=== PATIENT | female | born 1950 | race Caucasian/White ===

== ENCOUNTER → 2018-01-25 10:08 | Outpatient (CLI) | payer MEDICARE, OTHER, SELFPAY ==
[2018-01-25 11:46] LABS: Free T4, Direct Thyroxine 1.15 ng/dL (0.78-2.19)
[2018-01-25 11:51] LABS: Vitamin D 25 Hydroxy (D3) 74.1 ng/mL (30.0-100.0)
[2018-01-25 12:00] LABS: Thyroid Stimulating Hormone 3.73 uIU/mL (0.47-4.68)
== END ==
PROVIDERS: PCP Physician Assistant; Visit Provider Physician Assistant
DX: L65.9 Nonscarring hair loss, unspecified (principal); R94.6 Abnormal results of thyroid function studies; E55.9 Vitamin D deficiency, unspecified; M81.0 Age-related osteoporosis without current pathological fracture
CPT/HCPCS: 36415; 82306; 84439; 84443

== ENCOUNTER → 2021-08-10 07:58 | Outpatient (CLI) | payer MEDICARE, OTHER, SELFPAY ==
--- NOTE | 2021-08-10 07:59 | DI.MG.S_ITS ---
BILATERAL DIGITAL SCREENING MAMMOGRAM 3D/2D WITH CAD: 08/10/2021 CLINICAL: Routine screening. Comparison is made to exams dated: 01/31/2017 mammogram, 11/18/2015 mammogram, and 10/07/2014 mammogram - outside location. There are scattered fibroglandular elements in both breasts. Current study was also evaluated with a Computer Aided Detection (CAD) system. No significant masses, calcifications, or other findings are seen in either breast. There has been no significant interval change. IMPRESSION: NEGATIVE There is no mammographic evidence of malignancy. A 1 year screening mammogram is recommended. This exam was interpreted at Station ID: [id number]. NOTE: For mammograms, a report in lay terms will be sent to the patient. Approximately 15% of breast malignancies will not be visualized mammographically. In the management of a palpable breast mass, a negative mammogram must not discourage biopsy of a clinically suspicious lesion. Electronically Signed By: Sonu Christian acr/elis:08/10/2021 10:19:32 letter sent: Normal Exam ACR BI-RADS Category 1: Negative [id number]
== END ==
PROVIDERS: PCP Internal Medicine; Referring Provider Internal Medicine; Visit Provider Internal Medicine
DX: Z12.31 Encounter for screening mammogram for malignant neoplasm of breast (principal)
CPT/HCPCS: 77063; 77067

== ENCOUNTER → 2021-09-25 09:25 | Outpatient (CLI) | payer MEDICARE, OTHER, SELFPAY ==
[2021-09-25 10:49] LABS: Alanine Aminotransferase 32 IU/L (<35); Albumin 4.2 g/dL (3.5-5.0); Albumin Globulin Ratio 1.4 (1.0-2.8); Alkaline Phosphatase 83 U/L (38-126); Aspartate Aminotransferase 38 IU/L (14-36); BUN Creatinine Ratio 22.5 (6-22); Bilirubin Total 0.5 mg/dL (0.2-1.3); Blood Urea Nitrogen 16 mg/dL (7-17); Calcium 9.5 mg/dL (8.4-10.2); Carbon Dioxide 30 mmol/L (22-32); Chloride 109 mmol/L (98-107); Cholesterol 210 mg/dL (140-199); Estimated Glomerular Filt Rate > 60.0 mL/min (>60); Glucose 78 mg/dL (80-110); HDL Cholesterol 60 mg/dL (40-60); HEMOLYSIS < 15 (0-50); LDL Cholesterol Calculated 117 mg/dL (<100); Potassium 4.1 mmol/L (3.4-5.1); Sodium 142 mmol/L (137-145); Total Protein 7.2 g/dL (6.3-8.2); Triglycerides 164 mg/dL (35-150)
[2021-09-25 11:08] LABS: Vitamin D 25 Hydroxy (D3) 41.1 ng/mL (30.0-100.0)
[2021-09-25 11:23] LABS: TSH w/ Reflex to FT4 4.25 uIU/mL (0.47-4.68)
== END ==
PROVIDERS: PCP Internal Medicine; Referring Provider Internal Medicine; Visit Provider Internal Medicine
DX: Z13.6 Encounter for screening for cardiovascular disorders (principal); E55.9 Vitamin D deficiency, unspecified; M81.0 Age-related osteoporosis without current pathological fracture; Z13.1 Encounter for screening for diabetes mellitus; Z13.220 Encounter for screening for lipoid disorders; M85.89 Other specified disorders of bone density and structure, multiple sites
CPT/HCPCS: 36415; 80053; 80061; 82306; 84443

== ENCOUNTER 2022-03-05 01:28 | Emergency (ER) | payer MEDICARE, OTHER, SELFPAY ==
[2022-03-05 01:35] VITALS: BP 149/72; PULSE 72; RESP 18; TEMP 36.2; O2SAT 98
[2022-03-05 01:49] VITALS: BP 144/72; PULSE 76; RESP 18
--- NOTE | 2022-03-05 01:50 | DI.RAD.S_ITS ---
PROCEDURE: XR WRIST LT MIN 3V INDICATIONS: hurt after gardening,no known trauma TECHNIQUE: 4 views of the wrist were acquired. COMPARISON: None. FINDINGS: Bones: No fractures or dislocations. No suspicious bony lesions. First CMC joint osteoarthritis. Scaphoid view: Scaphoid is intact. Soft tissues: No suspicious soft tissue calcifications. IMPRESSION: No fracture. No osseous lesion. If symptoms and/or clinical suspicion for pathology persists, further assessment with repeat radiographs (7-10 days) or advanced imaging (e.g. CT, MRI or bone scan) should be considered. Dictated by: Karolina Romeo MD, PhD on 03/05/2022 at 7:29 Approved by: Karolina Romeo MD, PhD on 03/05/2022 at 7:38
--- NOTE | 2022-03-05 04:27 | ED.EXTPRO ---
HPI - Extremity Problem General Chief complaint: Extremity Problem,Nontraumatic Stated complaint: left arm/wrist pain x1 day/low blood pressure Time Seen by Provider: 03/05/22 03:23 Source: patient Mode of arrival: Wheelchair History of Present Illness HPI Narrative: [age] with minimal medical issues woke up this morning to void was slightly dizzy took her blood pressure and noticed that it was significantly low. That persisted and she also noted that her left wrist was bothering her so she decided to come to the emergency department. She was in complaining of chest pain, orthopnea, palpitations, headache, visual changes, any acute neurologic findings, abdominal pain, dysuria, diarrhea or constipation. She notes that she spent quite a bit of time in the garden over the last 1-2 days after getting home for in a 2 week vacation. Her left wrist has become increasingly sore and is slightly ecchymotic on the volar surface. She does not describe any specific damage but was heavily using her wrist with weeding. She also notes some minor tenderness into the forearm and up toward the lateral epicondyle her. She has had no recent fevers, there is no joint pain, redness or swelling. Related Data Home Medications Medication Instructions Recorded Confirmed multivitamin 1 tab PO DAILY 03/08/18 10/12/21 Citracal - Slow Release 2 tab PO DAILY 09/11/21 10/12/21 ibuprofen 200 mg tablet (Advil) 400 mg PO DAILY PRN 09/11/21 10/12/21 naproxen sodium 220 mg tablet 440 mg PO DAILY PRN 09/11/21 10/12/21 (Aleve) Previous Rx's Medication Instructions Recorded fluocinonide 0.05 % topical cream 1 applic topical BID-QID PRN rash 10/12/21 #30 grams Allergies Allergy/AdvReac Type Severity Reaction Status Date / Time No Known Drug Allergies Allergy Verified 10/12/21 09:21 Review of Systems Review of Systems Narrative: Remainder of complete review of systems is otherwise unremarkable except for that included in the HPI. Patient History Medical History (Updated 03/05/22 @ 04:52 by Rita Jimenez MD) History of multiple concussions Osteoarthritis, multiple sites Osteopenia after menopause Partial tear of rotator cuff Vitamin D deficiency Surgical History (Updated 01/24/18 @ 15:02 by Nelsy Oviedo PA-C) H/O foot surgery Family History (Updated 01/24/18 @ 15:06 by Nelsy Oviedo PA-C) Father Congestive heart failure Hypertension Osteoporosis Mother Rheumatoid arthritis Brother No problems noted. Brother No problems noted. Social History Smoking Status: Never smoker second hand exposure: No alcohol intake: current (socially.) substance use type: does not use Smoking Status: Never smoker alcohol intake frequency: a few times a week Substance Use Type: does not use Exam Initial Vital Signs Initial Vital Signs: Vital Signs Temperature 97.2 F L 03/05/22 01:35 Pulse Rate 72 03/05/22 01:35 Respiratory Rate 18 03/05/22 01:35 Blood Pressure 149/72 H 03/05/22 01:35 Pulse Oximetry 98 03/05/22 01:35 Oxygen Delivery Method 03/05/22 01:35 General: Healthy appearing, in no acute distress. Able to give a complete and coherent history. Well-nourished well-developed HEENT: Moist mucous membranes, normal sclera with reactive pupils, Neck: , supple Respiratory: Lungs are clear to auscultation, no wheezing no rales no rhonchi. Full and symmetrical air movement Cardiac: Regular rate and rhythm no murmurs no bruits Abdomen: Soft, nontender, good bowel tones, no flank pain Skin: Warm and dry, no rashes Neurologic: Grossly neurologically intact with no obvious asymmetries or abnormalities Extremities: Minor tenderness over the left lateral epicondyle and extensor surface of the forearm. Also significant tenderness over the flexor surface of the wrist looks like she has a small bruise over that surface. There are no bony points of tenderness and specifically no snuffbox tenderness. The hand and fingers are neurovascularly intact and remainder of the upper extremities are well perfused Psych: Cooperative, appropriate insight and affect Procedures Orthopedic Splinting/Casting Left wrist splint: Time of procedure: 04:47 Side: left Upper Extremity Injury Location: wrist Upper Extremity Immobilizer: thumb spica Post splinting neuro exam: intact Post splinting vascular exam: intact Placed by: Provider Course Orders Ordered: ED Orders 03/05/22 01:50 XR wrist LT min 3V Stat Vital Signs Vital signs: Vital Signs - 8 hr 03/05/22 01:35 03/05/22 01:49 Temperature 97.2 F L Pulse Rate 72 76 Respiratory Rate 18 18 Blood Pressure 149/72 H 144/72 H Pulse Oximetry 98 Oxygen Delivery Method Room Air MDM - Extremity (Nontraumatic) Imaging Data Wrist x-ray: Radiologist's Impression: 1st carpometacarpal osteoarthritis. Slight lucency in the ulnar aspect base of the 1st metatarsal on oblique view likely artifact. (Clinical correlation does not support any fracture at this site) Cedrick Myers MD [facility] Narrative Medical decision making narrative: Otherwise healthy woman who was concerned with hypotension at the middle of the night. I suspect that this was a circadian rhythms rather than significant pathology. When she was up and around and specifically when she got to the emergency department her blood pressures have been perfectly adequate. Her left wrist is bothering her likely overuse injury from all the guarding in the last 1-2 days. She probably also has a small superficial blood vessel rupture on the volar surface of the wrist which is contributing to the pain. She is placed in a splint and the immobilization and stabilization do help with some of the pain. Also discussed decreasing activity to avoid developing acute epicondylitis. There is no evidence infection, gout or reason for additional workup for further evaluation at this time. Questions are answered and she is safe for home discharge Discharge Plan Departure Patient Disposition: Home Clinical Impression: Hypotension Qualifiers: Hypotension type: unspecified hypotension type Qualified Code(s): I95.9 - Hypotension, unspecified Left wrist sprain Qualifiers: Encounter type: initial encounter Qualified Code(s): S63.502A - Unspecified sprain of left wrist, initial encounter Instructions: DI for Wrist Sprain Activity Restrictions/Additional Instructions: Thank you for coming in today I suspect that is the low blood pressure that you noticed in the middle of the night was related to normal circadian rhythms. Most people have fairly low blood pressures between 2 and 5:00 a.m.. The fact that it has returned to normal is quite reassuring Regarding your left wrist pain. I suspect that you have strained it and probably broken a small blood vessel on the inner surface of the wrist that is causing the majority of the pain. With pain radiating up the forearm you likely have simply overuse those muscles and are at risk for developing lateral epicondylitis or tennis elbow. Please use the wrist splint for the next couple of days as long as it is helpful. Ice or heat whichever seems to treat the pain most effectively is going to be appropriate. Using 400 mg of ibuprofen (2 srnr-peh-kpapnyn pills) and 1 Tylenol every 6 hours can be very helpful in controlling pain. If you find that you are getting worse or develop any new symptoms, please feel free to return to the emergency department for further evaluation. Prescriptions: No Action multivitamin tablet 1 tab PO DAILY fluocinonide 0.05 % cream 1 applic topical BID-QID PRN (Reason: rash) Qty: 30 1RF Citracal - Slow Release 2 tab PO DAILY naproxen sodium [Aleve] 220 mg tablet 440 mg PO DAILY PRN Rx Instructions: Additional tab if needed. Uses either Advil or Aleve ibuprofen [Advil] 200 mg tablet 400 mg PO DAILY PRN Rx Instructions: Takes an additional tab if needed - Uses either Advil or Aleve Referrals: Hany Bhatia MD [Primary Care Provider] -
[2022-03-05 05:05] VITALS: BP 138/73; PULSE 76; RESP 18; O2SAT 98
== END 2022-03-05 05:06 | disposition home or self-care (01) ==
PROVIDERS: Emergency Provider Emergency Medicine; PCP Internal Medicine
DX: I95.9 Hypotension, unspecified (principal); S63.502A Unspecified sprain of left wrist, initial encounter; Y93.H2 Activity, gardening and landscaping
CPT/HCPCS: 73110; 99281; 99283

== ENCOUNTER → 2022-04-12 09:40 | Outpatient (CLI) | payer MEDICARE, OTHER, SELFPAY ==
[2022-04-12 11:46] LABS: Erythrocyte Sedimentation Rate 15 MM/HR (0-20)
[2022-04-12 11:55] LABS: BUN Creatinine Ratio 16.4 (6-22); Blood Urea Nitrogen 11 mg/dL (7-17); C-Reactive Protein Quant 0.6 mg/dL (<1.0); Calcium 9.4 mg/dL (8.4-10.2); Carbon Dioxide 28 mmol/L (22-32); Chloride 104 mmol/L (98-107); Estimated Glomerular Filt Rate > 60 mL/min (>60); Glucose 82 mg/dL (80-110); HEMOLYSIS < 15 (0-50); Potassium 4.2 mmol/L (3.4-5.1); Sodium 141 mmol/L (137-145)
[2022-04-16 18:46] LABS: ANA Screen, IFA Positive (.)
== END ==
PROVIDERS: PCP Internal Medicine; Referring Provider Internal Medicine; Visit Provider Internal Medicine
DX: M35.05 Sjogren syndrome with inflammatory arthritis (principal)
CPT/HCPCS: 36415; 80048; 85651; 86038; 86140

== ENCOUNTER → 2022-05-04 14:30 | Outpatient (CLI) | payer MEDICARE, OTHER, SELFPAY ==
--- NOTE | 2022-05-04 | DI.RAD.S_ITS ---
PROCEDURE: XR HAND LT MIN 3V INDICATIONS: BL HAND PAIN TECHNIQUE: 3 views of the hand(s) acquired. COMPARISON: None. FINDINGS: Bones: No fractures or dislocations. Carpal bones are normally aligned. No suspicious bony lesions. Multifocal joint space narrowing and periarticular osteophyte formation at the radial carpal, scaphoid trapezial, 1st carpometacarpal joint, as well as the interphalangeal joints of the digits, and the 2nd and 3rd metacarpophalangeal joints. Soft tissues: No suspicious soft tissue calcifications. IMPRESSION: Osteoarthritis. No acute fracture. No osseous lesion. If symptoms and/or clinical suspicion for pathology persist, further assessment with repeat, or advanced imaging (e.g., CT, MRI, or bone scan) may be helpful for further assessment. Dictated by: Jhoan De M.D. on 05/04/2022 at 16:17 Transcribed by: CAMERON on 05/04/2022 at 16:19 Approved by: Jhoan De M.D. on 05/04/2022 at 16:35
--- NOTE | 2022-05-04 | DI.RAD.S_ITS ---
PROCEDURE: XR KNEE LT 3V INDICATIONS: knee pain TECHNIQUE: 3 views of the knee were acquired. COMPARISON: None. FINDINGS: Bones: No fractures or dislocations. No suspicious bony lesions. Moderate tricompartmental arthritic changes present. Periarticular osteophytes are present most notable laterally. No erosions. Soft tissues: No joint effusion. No suspicious soft tissue calcifications. IMPRESSION: Tricompartmental arthritic changes above. Dictated by: Silvia Granados M.D. on 05/04/2022 at 16:37 Approved by: Silvia Granados M.D. on 05/04/2022 at 16:37
--- NOTE | 2022-05-04 | DI.RAD.S_ITS ---
PROCEDURE: XR HAND RT MIN 3V INDICATIONS: BL HAND Pain TECHNIQUE: 3 views of the hand(s) acquired. COMPARISON: None. FINDINGS: Bones: No fractures or dislocations. Carpal bones are normally aligned. No suspicious bony lesions. Multifocal joint space narrowing and periarticular osteophyte formation at the radial carpal, scaphoid trapezial, 1st carpometacarpal joint, as well as the interphalangeal joints of the digits, indicating osteoarthritis. Soft tissues: No suspicious soft tissue calcifications. IMPRESSION: Multifocal osteoarthritis. No acute fracture. No osseous lesion. If symptoms and/or clinical suspicion for pathology persist, further assessment with repeat, or advanced imaging (e.g., CT, MRI, or bone scan) may be helpful for further assessment. Dictated by: Jhoan De M.D. on 05/04/2022 at 16:15 Transcribed by: CAMERON on 05/04/2022 at 16:17 Approved by: Jhoan De M.D. on 05/04/2022 at 16:35
== END ==
PROVIDERS: PCP Internal Medicine; Referring Provider Internal Medicine Rheumatology; Visit Provider Internal Medicine Rheumatology
DX: M17.12 Unilateral primary osteoarthritis, left knee; M19.042 Primary osteoarthritis, left hand; M19.041 Primary osteoarthritis, right hand
CPT/HCPCS: 73130; 73562

== ENCOUNTER → 2022-05-29 08:10 | Outpatient (CLI) | payer MEDICARE, OTHER, SELFPAY ==
[2022-05-29 09:50] LABS: Alanine Aminotransferase 36 IU/L (<35); Albumin 4.1 g/dL (3.5-5.0); Albumin Globulin Ratio 1.4 (1.0-2.8); Alkaline Phosphatase 117 U/L (38-126); Aspartate Aminotransferase 37 IU/L (14-36); BUN Creatinine Ratio 13.5 (6-22); Bilirubin Total 0.7 mg/dL (0.2-1.3); Blood Urea Nitrogen 10 mg/dL (7-17); C-Reactive Protein Quant < 0.5 mg/dL (<1.0); Calcium 9.2 mg/dL (8.4-10.2); Carbon Dioxide 29 mmol/L (22-32); Chloride 100 mmol/L (98-107); Estimated Glomerular Filt Rate > 60 mL/min (>60); Globulin 2.9 g/dL (1.7-4.1); Glucose 80 mg/dL (80-110); HEMOLYSIS < 15 (0-50); Potassium 4.6 mmol/L (3.4-5.1); Sodium 137 mmol/L (137-145)
[2022-05-29 10:34] LABS: Erythrocyte Sedimentation Rate 11 MM/HR (0-20)
[2022-05-30 07:29] LABS: Hepatitis B Core Antibody Negative (Negative)
[2022-05-31 18:17] LABS: Hepatitis B Surface Antigen NEGATIVE s/c (NEGATIVE)
[2022-05-31 18:31] LABS: Hep C Virus Ab w/Reflex Quant NEGATIVE s/c (NEGATIVE)
== END ==
PROVIDERS: PCP Internal Medicine; Referring Provider Internal Medicine Rheumatology; Visit Provider Internal Medicine Rheumatology
DX: M05.79 Rheumatoid arthritis with rheumatoid factor of multiple sites without organ or systems involvement (principal); R94.5 Abnormal results of liver function studies
CPT/HCPCS: 36415; 80053; 85651; 86140; 86704; 86803; 87340

== ENCOUNTER 2022-06-07 12:36 | Emergency (ER) | payer MEDICARE, OTHER, SELFPAY ==
[2022-06-07 13:08] VITALS: BP 186/90; PULSE 94; RESP 18; TEMP 37.3; O2SAT 100; BMI 24.2
--- NOTE | 2022-06-07 13:18 | DI.RAD.S_ITS ---
PROCEDURE: XR HIP W PEL IF DONE RT 2V INDICATIONS: sudden onset right hip pain, increased pain with ambulation TECHNIQUE: 2 views of the hip were acquired. COMPARISON: None. FINDINGS: Bones: No fractures or dislocations. No suspicious bony lesions. The visualized pelvic ring appears intact. Moderate bilateral hip joint space narrowing and small marginal osteophytes Soft tissues: No suspicious soft tissue calcifications or masses. IMPRESSION: Moderate bilateral hip osteoarthritis Approved by: Sascha Beltran M.D. on 06/07/2022 at 13:54
[2022-06-07] MEDS: HYDROCODONE/ACET 5/325 TABLET 1 TAB PO (15:07)
--- NOTE | 2022-06-07 15:08 | ED_ITS ---
HPI - Extremity Problem General Chief complaint: Extremity Problem,Nontraumatic Stated complaint: sent by [facility] hip pain hard to move Time Seen by Provider: 06/07/22 14:56 Source: patient Mode of arrival: Wheelchair Limitations: no limitations History of Present Illness HPI Narrative: 71-year-old female who is here for evaluation of right-sided hip and right thigh pain. States the symptoms started when she was woken from sleep overnight. There was no specific trauma. She has history arthritis and also recent diagnosis of rheumatoid arthritis. Did not fall. Has not tried anything for the symptoms. States that it hurts when she flexes her hip and bends her knee and strains her leg out and also moves her leg in and out. Related Data Home Medications Medication Instructions Recorded Confirmed multivitamin 1 tab PO DAILY 03/08/18 06/07/22 Citracal - Slow Release 2 tab PO DAILY 09/11/21 06/07/22 ibuprofen 200 mg tablet (Advil) 400 mg PO DAILY PRN 09/11/21 06/07/22 naproxen sodium 220 mg tablet 440 mg PO DAILY PRN 09/11/21 06/07/22 (Aleve) Previous Rx's Medication Instructions Recorded fluocinonide 0.05 % topical cream 1 applic topical BID-QID PRN rash 10/12/21 #30 grams cyclobenzaprine 10 mg tablet 5 mg PO TID PRN muscle spasm #20 06/07/22 tabs hydrocodone 5 mg-acetaminophen 325 1 tab PO Q4-6H PRN pain #14 tabs 06/07/22 mg tablet Allergies Allergy/AdvReac Type Severity Reaction Status Date / Time No Known Drug Allergies Allergy Verified 06/07/22 13:15 Review of Systems Constitutional Constitutional: Reports system reviewed and no additional complaints, except as documented Musculoskeletal Musculoskeletal: Reports system reviewed and no additional complaints, except as documented Integumentary/Breasts Skin/Breast: Reports system reviewed and no additional complaints, except as documented Neurologic Neurologic: Reports system reviewed and no additional complaints, except as documented Hematologic/Lymphatic On Anticoagulants: No Patient History Medical History History of multiple concussions Osteoarthritis, multiple sites Osteopenia after menopause Partial tear of rotator cuff Vitamin D deficiency Surgical History H/O foot surgery Family History Father Congestive heart failure Hypertension Osteoporosis Mother Rheumatoid arthritis Brother No problems noted. Brother No problems noted. Social History Smoking Status: Never smoker second hand exposure: No alcohol intake: current (socially.) substance use type: does not use Smoking Status: Never smoker alcohol intake frequency: holidays/special occasions only Substance Use Type: does not use Exam Initial Vital Signs Initial Vital Signs: Vital Signs Temperature 99.1 F 06/07/22 13:08 Pulse Rate 94 H 06/07/22 13:08 Respiratory Rate 18 06/07/22 13:08 Blood Pressure 186/90 H 06/07/22 13:08 Pulse Oximetry 100 06/07/22 13:08 Oxygen Delivery Method 06/07/22 13:08 Const General: cooperative and comfortable HENMT Head: normal to inspection and normocephalic Resp Effort & Inspection: normal respiratory effort Cardio Rate: regular rate GI Inspection: normal to inspection and non-distended Skin General: no rashes or lesions noted Neuro General: patient alert and patient awake Sensory Exam: no sensory deficits noted Extrem Other: Tenderness to palpation over the quadriceps muscle on the right. She is tenderness with extension of the knee and also flexion of the knee and also flexion and extension of the hip. Course Orders Ordered: ED Orders 06/07/22 13:18 XR hip w pel if done RT 2V Stat Discontinued Medications Hydrocodone Bitart/Acetaminophen (Hydrocodone/Acet 5/325 Tablet) 1 tab PO NOW ONE Stop: 06/07/22 14:59 Last Admin: 06/07/22 15:07 Dose: 1 tab Documented By: LAKSHMI Ketorolac Tromethamine (Ketorolac 30 Mg/Ml Vial) 30 mg IM NOW ONE Stop: 06/07/22 15:10 Last Admin: 06/07/22 15:16 Dose: 30 mg Documented By: LAKSHMI Vital Signs Vital signs: Vital Signs - 8 hr 06/07/22 13:08 06/07/22 15:20 06/07/22 17:14 Temperature 99.1 F Pulse Rate 94 H 94 H 86 Respiratory Rate 18 12 Blood Pressure 186/90 H Pulse Oximetry 100 100 100 Oxygen Delivery Method Room Air Room Air 06/07/22 17:28 Temperature 99.9 F H Pulse Rate 90 Respiratory Rate 16 Blood Pressure 162/79 H Pulse Oximetry 99 Oxygen Delivery Method Room Air MDM - Extremity (Nontraumatic) Imaging Data Extremity x-ray #1: Radiologist's Impression: [address] [address] XRay Report Signed Patient: Kylah Mathews MR#: [id number] : 1950 Acct:[id number] Age/Sex: 71 / F Date of Service: 06/07/22 Loc: ED Accession Number: [id number] ?? Procedure: XR hip w pel if done RT 2V Ordering Provider: Darren De La Cruz D.O. PROCEDURE:? XR HIP W PEL IF DONE RT 2V ? INDICATIONS:? sudden onset right hip pain, increased pain with ambulation ? TECHNIQUE:? 2 views of the hip were acquired.? ? COMPARISON:? None. ? FINDINGS:? ? Bones:? No fractures or dislocations.? No suspicious bony lesions.? The visualized pelvic ring appears intact.? Moderate bilateral hip joint space narrowing and small marginal osteophytes ? Soft tissues:? No suspicious soft tissue calcifications or masses.? ? IMPRESSION:? Moderate bilateral hip osteoarthritis ? ? ? Approved by: Sascha Beltran M.D. on 06/07/2022 at 13:54? [facility] Narrative Medical decision making narrative: No fractures or dislocations noted on the x-rays. Her symptoms are consistent with a strain/sprain/muscle spasm the quadriceps muscle as it follows pattern of this. She seems to be in the most comfort with her knee slightly bent. A discussion with her regarding this. Was sent home with symptom control. She can ambulate as tolerated. She was given return precautions. She expressed understanding and agreement. Discharge Plan Departure Patient Disposition: Home Clinical Impression: Muscle spasm of right leg Instructions: DI for Muscle Strain Activity Restrictions/Additional Instructions: No fractures noted on the x-rays. Your only limited in your activities by your discomfort. Medications were sent to [facility] per your request. Return to the emergency department for any new or worsening symptoms. Contact your primary doctor for follow-up. Prescriptions: New cyclobenzaprine 10 mg tablet 5 mg PO TID PRN (Reason: muscle spasm) Qty: 20 0RF hydrocodone-acetaminophen 5-325 mg tablet 1 tab PO Q4-6H PRN (Reason: pain) Qty: 14 0RF No Action multivitamin tablet 1 tab PO DAILY fluocinonide 0.05 % cream 1 applic topical BID-QID PRN (Reason: rash) Qty: 30 1RF Citracal - Slow Release 2 tab PO DAILY naproxen sodium [Aleve] 220 mg tablet 440 mg PO DAILY PRN Rx Instructions: Additional tab if needed. Uses either Advil or Aleve ibuprofen [Advil] 200 mg tablet 400 mg PO DAILY PRN Rx Instructions: Takes an additional tab if needed - Uses either Advil or Aleve Referrals: Hany Bhatia MD [Primary Care Provider] - Visit Report Forms: Patient Portal/API
[2022-06-07] MEDS: KETOROLAC 30 MG/ML VIAL IM (15:16)
[2022-06-07 15:20] VITALS: PULSE 94; O2SAT 100
[2022-06-07 17:14] VITALS: PULSE 86; RESP 12; O2SAT 100
[2022-06-07 17:28] VITALS: BP 162/79; PULSE 90; RESP 16; TEMP 37.7; O2SAT 99
== END 2022-06-07 17:29 | disposition home or self-care (01) ==
PROVIDERS: Emergency Provider Emergency Medicine; PCP Internal Medicine
DX: M62.838 Other muscle spasm (principal)
CPT/HCPCS: 73502; 96372; 99283; 99284; J1885

== ENCOUNTER → 2022-06-10 16:51 | Outpatient (CLI) | payer MEDICARE, OTHER, SELFPAY ==
[2022-06-10 18:20] LABS: Alanine Aminotransferase 23 IU/L (<35); Albumin Globulin Ratio 1.1 (1.0-2.8); Alkaline Phosphatase 114 U/L (38-126); Aspartate Aminotransferase 23 IU/L (14-36); BUN Creatinine Ratio 17.2 (6-22); Bilirubin Total 0.4 mg/dL (0.2-1.3); Blood Urea Nitrogen 10 mg/dL (7-17); C-Reactive Protein Quant 5.9 mg/dL (<1.0); Calcium 9.3 mg/dL (8.4-10.2); Carbon Dioxide 28 mmol/L (22-32); Chloride 103 mmol/L (98-107); Creatine Kinase 44 U/L (30-135); Estimated Glomerular Filt Rate > 60 mL/min (>60); Globulin 3.7 g/dL (1.7-4.1); Glucose 79 mg/dL (80-110); HEMOLYSIS < 15 (0-50); Potassium 3.6 mmol/L (3.4-5.1); Sodium 141 mmol/L (137-145); Total Protein 7.7 g/dL (6.3-8.2)
[2022-06-10 18:47] LABS: Erythrocyte Sedimentation Rate 9 MM/HR (0-20)
== END ==
PROVIDERS: PCP Internal Medicine; Referring Provider Internal Medicine; Visit Provider Internal Medicine
DX: M79.10 Myalgia, unspecified site (principal)
CPT/HCPCS: 36415; 80053; 82550; 85651; 86140

== ENCOUNTER → 2022-06-12 09:11 | Outpatient (CLI) | payer MEDICARE, OTHER, SELFPAY | PROVIDERS: PCP Internal Medicine; Referring Provider Internal Medicine; Visit Provider Internal Medicine | DX: M25.551 Pain in right hip (principal); M79.604 Pain in right leg ==

== ENCOUNTER → 2022-06-14 18:44 | Outpatient (CLI) | payer MEDICARE, OTHER, SELFPAY ==
--- NOTE | 2022-06-14 18:47 | DI.MRI.S_ITS ---
PROCEDURE: MR HIP RT WO CON INDICATIONS: acute right hip pain TECHNIQUE: Noncontrast coronal T1 spin echo and STIR through the bony pelvis. Coronal and axial T2 fast spin echo with fat saturation, sagittal T1 spin echo, and oblique axial T2 fast spin echo with fat saturation through the hip. COMPARISON: [facility], CR, XR HIP W PEL IF DONE RT 2V, 06/07/2022, 13:19. FINDINGS: Image quality: Excellent. Bones and joints: Bone marrow of the pelvic ring and proximal femurs show normal signal throughout. No intraosseous lesions or fractures. No avascular necrosis of the femoral heads. Mild degenerative changes at the pubic symphysis. Joint space narrowing subchondral cystic changes are seen in the contralateral left hip. Mild degenerative changes are seen in the sacroiliac joints bilaterally with subchondral edema. Disc desiccation and facet hypertrophy are seen in the lower lumbar spine. Tendons and ligaments: The gluteus medius and minimus tendons appear intact, without associated muscle atrophy. The proximal iliotibial band appears intact. The iliopsoas tendon appears intact, without adjacent bursal fluid collections. The origin of the hamstring tendon demonstrates mild tendinosis. The direct and indirect heads of the rectus femoris muscle origin appear intact. Labrum and cartilage: Partial-thickness cartilage loss is seen at the superior portion of the right hip with mild subchondral edema and marginal osteophyte formation as well as subchondral cystic changes anteriorly. There is diffuse labral degeneration. There is normal morphology of the femoral head and the acetabulum. Soft tissues: Mild muscular edema is seen within the adductor brevis and longus muscles and the obturator externus muscle adjacent to the pubic bone, consistent with low-grade muscle strains. Mild edema is also seen within the proximal right gluteus minimus muscle. Quadratus femoris muscle demonstrates no internal edema to suggest ischiofemoral impingement. The proximal sciatic neurovascular bundle appears intact. The included portions of the pelvis demonstrate no acute abnormality. IMPRESSION: 1. Muscular edema within the right adductor brevis and longus muscles adjacent to the pubic symphysis as well as the obturator externus muscle and the proximal right gluteus minimus muscle is consistent with low-grade muscle strains. 2. Moderate right hip osteoarthrosis with grade 2-3 chondromalacia, subchondral cystic changes and edema, and marginal osteophyte formation. Diffuse labral degeneration. 3. Degenerative changes also seen in the pubic symphysis, left hip, bilateral sacroiliac joints, and lumbar spine. 4. Mild proximal hamstring tendinosis. Approved by: Shar Ayala M.D. on 06/15/2022 at 11:09
--- NOTE | 2022-06-14 18:47 | DI.MRI.S_ITS ---
PROCEDURE: MR FEMUR RT WO CON INDICATIONS: acute right hip pain TECHNIQUE: Noncontrast coronal T1 spin echo and STIR; sagittal T1 spin echo with fat saturation and STIR; axial T1 spin echo and T2 fast spin echo with fat saturation through the right femur. COMPARISON: [facility], CR, XR HIP W PEL IF DONE RT 2V, 06/07/2022, 13:19. FINDINGS: Image quality: Excellent. Bones: The visualized bone marrow demonstrates normal signal on all sequences. The overlying cortex appears intact. No acute trabecular bone injury. Degenerative changes are seen in the bilateral hips and the pubic symphysis. Soft tissues: Mild muscular edema is seen within the proximal adductor musculature. There is mild proximal hamstring tendinosis. The distal thigh musculature is normal in bulk and signal intensity. IMPRESSION: 1. Low-grade muscle strains of the proximal adductor musculature adjacent to the pubic bone. 2. Degenerative changes in the bilateral hips and pubic symphysis. 3. Mild proximal right hamstring tendinosis. Approved by: Shar Ayala M.D. on 06/15/2022 at 11:12
== END ==
PROVIDERS: PCP Internal Medicine; Referring Provider Internal Medicine; Visit Provider Internal Medicine
DX: M16.11 Unilateral primary osteoarthritis, right hip (principal); M94.251 Chondromalacia, right hip; M47.816 Spondylosis without myelopathy or radiculopathy, lumbar region; M79.604 Pain in right leg; M25.551 Pain in right hip
CPT/HCPCS: 73718; 73721

== ENCOUNTER → 2022-06-30 14:00 | Outpatient (CLI) | payer MEDICARE, OTHER, SELFPAY ==
[2022-06-30 14:43] LABS: Add Manual Diff / Slide Review NO; Basophils Absolute Auto 0 /uL (0-100); Basophils Percent Auto 0.5 % (0-2); Eosinophils Absolute Auto 100 /uL (0-450); Eosinophils Percent Auto 2.2 % (2-4); Hematocrit 37.6 % (36-46); Hemoglobin 12.6 g/dL (12.0-16.0); Lymphocytes Absolute Auto 1900 /uL (1100-4500); Lymphocytes Percent Auto 39.4 % (25-40); Mean Corpuscular HGB Conc 33.3 % (30-36); Mean Corpuscular Hemoglobin 31.9 PG (26-34); Mean Corpuscular Volume 95.7 fL (80-100); Monocytes Absolute Auto 300 /uL (0-900); Monocytes Percent Auto 6.4 % (3-14); Neutrophils Absolute Auto 2500 /uL (1500-7000); Neutrophils Percent Auto 51.5 % (50-75); Platelet Count 217 X10^3/uL (150-400); Red Blood Cell Count 3.93 X10^6/uL (4.0-5.2); Red Cell Distribution Width 13.1 % (11.6-14.8); White Blood Cell Count 4.8 X10^3/uL (4.5-11.0)
[2022-06-30 15:19] LABS: Alanine Aminotransferase 52 IU/L (<35); Albumin 4.2 g/dL (3.5-5.0); Albumin Globulin Ratio 1.3 (1.0-2.8); Alkaline Phosphatase 121 U/L (38-126); Aspartate Aminotransferase 51 IU/L (14-36); BUN Creatinine Ratio 18.6 (6-22); Bilirubin Total 0.3 mg/dL (0.2-1.3); Blood Urea Nitrogen 11 mg/dL (7-17); Calcium 9.6 mg/dL (8.4-10.2); Carbon Dioxide 29 mmol/L (22-32); Chloride 103 mmol/L (98-107); Estimated Glomerular Filt Rate > 60 mL/min (>60); Globulin 3.3 g/dL (1.7-4.1); Glucose 129 mg/dL (80-110); HEMOLYSIS < 15 (0-50); Potassium 3.6 mmol/L (3.4-5.1); Sodium 139 mmol/L (137-145); Total Protein 7.5 g/dL (6.3-8.2)
== END ==
PROVIDERS: PCP Internal Medicine; Referring Provider Internal Medicine Rheumatology; Visit Provider Internal Medicine Rheumatology
DX: M05.79 Rheumatoid arthritis with rheumatoid factor of multiple sites without organ or systems involvement (principal); Z79.899 Other long term (current) drug therapy; R94.5 Abnormal results of liver function studies
CPT/HCPCS: 36415; 80053; 85025

== ENCOUNTER → 2022-07-19 09:23 | Outpatient (CLI) | payer MEDICARE, OTHER, SELFPAY ==
[2022-07-19 09:58] LABS: Add Manual Diff / Slide Review NO; Basophils Absolute Auto 0 /uL (0-100); Basophils Percent Auto 0.4 % (0-2); Eosinophils Absolute Auto 100 /uL (0-450); Eosinophils Percent Auto 1.8 % (2-4); Hematocrit 35.2 % (36-46); Hemoglobin 12.3 g/dL (12.0-16.0); Lymphocytes Absolute Auto 1400 /uL (1100-4500); Lymphocytes Percent Auto 33.7 % (25-40); Mean Corpuscular HGB Conc 34.9 % (30-36); Mean Corpuscular Hemoglobin 33.2 PG (26-34); Mean Corpuscular Volume 95.1 fL (80-100); Monocytes Absolute Auto 300 /uL (0-900); Monocytes Percent Auto 7.8 % (3-14); Neutrophils Absolute Auto 2400 /uL (1500-7000); Neutrophils Percent Auto 56.3 % (50-75); Platelet Count 246 X10^3/uL (150-400); Red Cell Distribution Width 14.1 % (11.6-14.8); White Blood Cell Count 4.2 X10^3/uL (4.5-11.0)
[2022-07-19 10:11] LABS: Alanine Aminotransferase 46 IU/L (<35); Albumin 4.2 g/dL (3.5-5.0); Albumin Globulin Ratio 1.3 (1.0-2.8); Alkaline Phosphatase 117 U/L (38-126); Aspartate Aminotransferase 45 IU/L (14-36); BUN Creatinine Ratio 26.7 (6-22); Bilirubin Total 0.5 mg/dL (0.2-1.3); Blood Urea Nitrogen 16 mg/dL (7-17); Calcium 9.1 mg/dL (8.4-10.2); Carbon Dioxide 27 mmol/L (22-32); Chloride 102 mmol/L (98-107); Estimated Glomerular Filt Rate > 60 mL/min (>60); Globulin 3.3 g/dL (1.7-4.1); Glucose 88 mg/dL (80-110); HEMOLYSIS < 15 (0-50); Potassium 4.1 mmol/L (3.4-5.1); Sodium 138 mmol/L (137-145); Total Protein 7.5 g/dL (6.3-8.2)
== END ==
PROVIDERS: PCP Internal Medicine; Referring Provider Internal Medicine Rheumatology; Visit Provider Internal Medicine Rheumatology
DX: M05.79 Rheumatoid arthritis with rheumatoid factor of multiple sites without organ or systems involvement (principal); Z79.899 Other long term (current) drug therapy; R94.5 Abnormal results of liver function studies
CPT/HCPCS: 36415; 80053; 85025

== ENCOUNTER → 2022-07-28 14:33 | Outpatient (CLI) | payer MEDICARE, OTHER, SELFPAY ==
[2022-07-28 15:21] LABS: Erythrocyte Sedimentation Rate 18 MM/HR (0-20)
[2022-07-28 15:33] LABS: C-Reactive Protein Quant < 0.5 mg/dL (<1.0)
== END ==
PROVIDERS: PCP Internal Medicine; Referring Provider Internal Medicine Rheumatology; Visit Provider Internal Medicine Rheumatology
DX: M05.79 Rheumatoid arthritis with rheumatoid factor of multiple sites without organ or systems involvement (principal)
CPT/HCPCS: 36415; 85651; 86140

== ENCOUNTER → 2022-08-11 11:35 | Outpatient (CLI) | payer MEDICARE, OTHER, SELFPAY ==
[2022-08-11 12:37] LABS: Add Manual Diff / Slide Review NO; Basophils Absolute Auto 0 /uL (0-100); Basophils Percent Auto 0.3 % (0-2); Eosinophils Absolute Auto 100 /uL (0-450); Eosinophils Percent Auto 1.7 % (2-4); Hematocrit 35.9 % (36-46); Hemoglobin 12.2 g/dL (12.0-16.0); Lymphocytes Absolute Auto 1600 /uL (1100-4500); Lymphocytes Percent Auto 35.7 % (25-40); Mean Corpuscular HGB Conc 33.9 % (30-36); Mean Corpuscular Hemoglobin 32.7 PG (26-34); Mean Corpuscular Volume 96.4 fL (80-100); Monocytes Absolute Auto 400 /uL (0-900); Monocytes Percent Auto 7.8 % (3-14); Neutrophils Absolute Auto 2500 /uL (1500-7000); Neutrophils Percent Auto 54.5 % (50-75); Platelet Count 208 X10^3/uL (150-400); Red Blood Cell Count 3.73 X10^6/uL (4.0-5.2); Red Cell Distribution Width 15.2 % (11.6-14.8); White Blood Cell Count 4.6 X10^3/uL (4.5-11.0)
[2022-08-11 14:06] LABS: Alanine Aminotransferase 64 IU/L (<35); Albumin 4.2 g/dL (3.5-5.0); Albumin Globulin Ratio 1.4 (1.0-2.8); Alkaline Phosphatase 144 U/L (38-126); Aspartate Aminotransferase 62 IU/L (14-36); BUN Creatinine Ratio 18.8 (6-22); Bilirubin Total 0.4 mg/dL (0.2-1.3); Blood Urea Nitrogen 12 mg/dL (7-17); Calcium 9.1 mg/dL (8.4-10.2); Carbon Dioxide 30 mmol/L (22-32); Chloride 102 mmol/L (98-107); Estimated Glomerular Filt Rate > 60 mL/min (>60); Globulin 3.1 g/dL (1.7-4.1); Glucose 79 mg/dL (80-110); HEMOLYSIS < 15 (0-50); Potassium 4.3 mmol/L (3.4-5.1); Sodium 139 mmol/L (137-145); Total Protein 7.3 g/dL (6.3-8.2)
== END ==
PROVIDERS: PCP Internal Medicine; Referring Provider Internal Medicine Rheumatology; Visit Provider Internal Medicine Rheumatology
DX: R94.5 Abnormal results of liver function studies (principal); M05.79 Rheumatoid arthritis with rheumatoid factor of multiple sites without organ or systems involvement; Z79.899 Other long term (current) drug therapy
CPT/HCPCS: 36415; 80053; 85025

== ENCOUNTER → 2022-08-31 12:58 | Outpatient (CLI) | payer MEDICARE, OTHER, SELFPAY ==
--- NOTE | 2022-08-31 | DI.MG.S_ITS ---
BILATERAL DIGITAL SCREENING MAMMOGRAM 3D/2D WITH CAD: 08/31/2022 CLINICAL: Routine screening. Comparison is made to exams dated: 08/10/2021 mammogram - [facility], 01/31/2017 mammogram, and 11/18/2015 mammogram - outside location. There are scattered areas of fibroglandular density in both breasts (category b / 25%-50% glandular tissue). Current study was also evaluated with a Computer Aided Detection (CAD) system. There is a focal asymmetry in the left breast at 1 o'clock anterior depth. No other significant masses, calcifications, or other findings are seen in either breast. IMPRESSION: INCOMPLETE: NEEDS ADDITIONAL IMAGING EVALUATION The focal asymmetry in the left breast is indeterminate. Additional views with possible ultrasound are recommended. Based on the Tyrer Cuzick model (a risk assessment model) the patient's lifetime risk is 3.5% and her 10 year risk is 2.6%. According to the ACR, ACS, and NCCN guidelines, an annual breast MRI exam along with mammogram is recommended if the patient's lifetime risk is 20% or greater. This exam was interpreted at Station ID: [id number]. NOTE: For mammograms, a report in lay terms will be sent to the patient. Approximately 15% of breast malignancies will not be visualized mammographically. In the management of a palpable breast mass, a negative mammogram must not discourage biopsy of a clinically suspicious lesion. Electronically Signed By: Donna trent/elis:08/31/2022 13:33:44 letter sent: Additional Imaging Needed ACR BI-RADS Category 0: Incomplete 3340F
== END ==
PROVIDERS: Family Provider Internal Medicine; PCP Internal Medicine; Referring Provider Internal Medicine; Visit Provider Internal Medicine
DX: Z12.31 Encounter for screening mammogram for malignant neoplasm of breast (principal)
CPT/HCPCS: 77063; 77067

== ENCOUNTER → 2022-09-08 13:32 | Outpatient (CLI) | payer MEDICARE, OTHER, SELFPAY ==
[2022-09-08 15:06] LABS: Add Manual Diff / Slide Review NO; Basophils Absolute Auto 0 /uL (0-100); Basophils Percent Auto 0.3 % (0-2); Eosinophils Absolute Auto 100 /uL (0-450); Eosinophils Percent Auto 1.4 % (2-4); Hematocrit 35.4 % (36-46); Hemoglobin 12.2 g/dL (12.0-16.0); Lymphocytes Absolute Auto 1800 /uL (1100-4500); Lymphocytes Percent Auto 37.1 % (25-40); Mean Corpuscular HGB Conc 34.5 % (30-36); Mean Corpuscular Volume 98.3 fL (80-100); Monocytes Absolute Auto 400 /uL (0-900); Neutrophils Absolute Auto 2600 /uL (1500-7000); Neutrophils Percent Auto 53.2 % (50-75); Platelet Count 229 X10^3/uL (150-400); Red Cell Distribution Width 15.4 % (11.6-14.8); White Blood Cell Count 4.9 X10^3/uL (4.5-11.0)
[2022-09-08 15:16] LABS: Alanine Aminotransferase 33 IU/L (<35); Albumin 4.4 g/dL (3.5-5.0); Albumin Globulin Ratio 1.5 (1.0-2.8); Alkaline Phosphatase 117 U/L (38-126); Aspartate Aminotransferase 33 IU/L (14-36); BUN Creatinine Ratio 20.9 (6-22); Bilirubin Total 0.5 mg/dL (0.2-1.3); Blood Urea Nitrogen 14 mg/dL (7-17); Calcium 9.5 mg/dL (8.4-10.2); Carbon Dioxide 28 mmol/L (22-32); Chloride 101 mmol/L (98-107); Estimated Glomerular Filt Rate > 60 mL/min (>60); Globulin 2.9 g/dL (1.7-4.1); Glucose 85 mg/dL (80-110); HEMOLYSIS < 15 (0-50); Potassium 3.9 mmol/L (3.4-5.1); Sodium 138 mmol/L (137-145); Total Protein 7.3 g/dL (6.3-8.2)
== END ==
PROVIDERS: Family Provider Internal Medicine; PCP Internal Medicine; Referring Provider Internal Medicine Rheumatology; Visit Provider Internal Medicine Rheumatology
DX: M05.79 Rheumatoid arthritis with rheumatoid factor of multiple sites without organ or systems involvement (principal); Z79.899 Other long term (current) drug therapy; R94.5 Abnormal results of liver function studies
CPT/HCPCS: 36415; 80053; 85025

== ENCOUNTER → 2022-09-27 07:59 | Outpatient (CLI) | payer MEDICARE, OTHER, SELFPAY ==
[2022-09-27 08:59] LABS: Vitamin D 25 Hydroxy (D3) 56.5 ng/mL (30.0-100.0)
== END ==
PROVIDERS: Family Provider Internal Medicine; PCP Internal Medicine; Referring Provider Internal Medicine; Visit Provider Internal Medicine
DX: E55.9 Vitamin D deficiency, unspecified; M05.79 Rheumatoid arthritis with rheumatoid factor of multiple sites without organ or systems involvement; M81.0 Age-related osteoporosis without current pathological fracture
CPT/HCPCS: 36415; 82306

== ENCOUNTER → 2022-09-28 08:43 | Outpatient (CLI) | payer MEDICARE, OTHER, SELFPAY ==
--- NOTE | 2022-09-28 | DI.MG.S_ITS ---
UNILATERAL LEFT DIGITAL DIAGNOSTIC MAMMOGRAM 3D/2D WITH ADDITIONAL VIEWS: 09/28/2022 CLINICAL: Additional evaluation requested from prior study. Comparison is made to exams dated: 08/31/2022 mammogram, 08/10/2021 mammogram - [facility], and 01/31/2017 mammogram - outside location. There are scattered areas of fibroglandular density in the left breast (category b / 25%-50% glandular tissue). The focal asymmetry in the left breast at 1 o'clock anterior depth is no longer seen with focal spot compression, and most likely is fibroglandular tissue. This is not confirmed with additional views. No other significant masses or calcifications are seen in the breast. IMPRESSION: INCOMPLETE: NEEDS ADDITIONAL IMAGING EVALUATION Resolution of screening mammography abnormality with additional views. Ultrasound evaluation to confirm resolution is recommended and was performed immediately following this exam. Based on the Tyrer Cuzick model (a risk assessment model) the patient's lifetime risk is 3.5% and her 10 year risk is 2.6%. According to the ACR, ACS, and NCCN guidelines, an annual breast MRI exam along with mammogram is recommended if the patient's lifetime risk is 20% or greater. This exam was interpreted at Station ID: [id number]. NOTE: For mammograms, a report in lay terms will be sent to the patient. Approximately 15% of breast malignancies will not be visualized mammographically. In the management of a palpable breast mass, a negative mammogram must not discourage biopsy of a clinically suspicious lesion. Electronically Signed By: Renée vera/:09/28/2022 12:42:37 ACR BI-RADS Category 0: Incomplete 3340F
--- NOTE | 2022-09-28 08:44 | DI.US.S_ITS ---
LIMITED ULTRASOUND OF LEFT BREAST: 09/28/2022 CLINICAL: Left Breast Ultrasound. Comparison is made to exams dated: 08/31/2022 mammogram and 08/10/2021 mammogram - [facility]. Ultrasound of the left breast 2 o'clock region was performed. Castro scale images of the real-time examination were reviewed. No significant abnormalities were seen sonographically in the left breast. Specifically, no finding to correspond to the patient's resolved screening mammographic abnormality. IMPRESSION: NEGATIVE There is no sonographic correlate to the patient's screening mammography abnormality and no evidence of malignancy. Return to annual mammogram screening schedule is recommended. Findings and recommendations were conveyed to the patient at time of exam.. This exam was interpreted at Station ID: [id number]. Electronically Signed By: Renée vera/:09/28/2022 09:32:53 letter sent: Normal Exam Ultrasound BI-RADS: 1 Negative
== END ==
PROVIDERS: Family Provider Internal Medicine; PCP Internal Medicine; Referring Provider Internal Medicine; Visit Provider Internal Medicine
DX: R92.8 Other abnormal and inconclusive findings on diagnostic imaging of breast (principal)
CPT/HCPCS: 76642; 77065; G0279

== ENCOUNTER → 2022-09-29 10:08 | Outpatient (CLI) | payer MEDICARE, OTHER, SELFPAY ==
--- NOTE | 2022-09-29 10:10 | DI.RAD.S_ITS ---
PROCEDURE: XR DEXA AXIAL SKELETON INDICATIONS: osteopenia COMPARISON: None. FINDINGS: This blank DEXA report has been sent in error by the PACS system. The correct and complete report will be forthcoming in 1-2 days. Thank you for your patience and understanding. Dictated by: Chase Michaels M.D. on 09/29/2022 at 11:38 Approved by: Chase Michaels M.D. on 09/29/2022 at 11:38
== END ==
PROVIDERS: Family Provider Internal Medicine; PCP Internal Medicine; Referring Provider Internal Medicine; Visit Provider Internal Medicine
DX: Z13.820 Encounter for screening for osteoporosis (principal); Z78.0 Asymptomatic menopausal state; M05.79 Rheumatoid arthritis with rheumatoid factor of multiple sites without organ or systems involvement; E55.9 Vitamin D deficiency, unspecified; M85.851 Other specified disorders of bone density and structure, right thigh; Z92.23 Personal history of estrogen therapy
CPT/HCPCS: 77080

== ENCOUNTER → 2022-10-23 11:33 | Outpatient (CLI) | payer MEDICARE, OTHER, SELFPAY ==
[2022-10-23 11:59] LABS: Add Manual Diff / Slide Review NO; Basophils Absolute Auto 0 /uL (0-100); Basophils Percent Auto 0.5 % (0-2); Eosinophils Absolute Auto 100 /uL (0-450); Eosinophils Percent Auto 1.4 % (2-4); Hematocrit 37.8 % (36-46); Hemoglobin 12.6 g/dL (12.0-16.0); Lymphocytes Absolute Auto 1700 /uL (1100-4500); Lymphocytes Percent Auto 38.1 % (25-40); Mean Corpuscular HGB Conc 33.2 % (30-36); Mean Corpuscular Volume 99.4 fL (80-100); Monocytes Absolute Auto 300 /uL (0-900); Monocytes Percent Auto 6.3 % (3-14); Neutrophils Absolute Auto 2500 /uL (1500-7000); Neutrophils Percent Auto 53.7 % (50-75); Platelet Count 247 X10^3/uL (150-400); Red Blood Cell Count 3.81 X10^6/uL (4.0-5.2); Red Cell Distribution Width 13.9 % (11.6-14.8); White Blood Cell Count 4.6 X10^3/uL (4.5-11.0)
[2022-10-23 12:33] LABS: Alanine Aminotransferase 33 IU/L (<35); Albumin 4.3 g/dL (3.5-5.0); Albumin Globulin Ratio 1.3 (1.0-2.8); Alkaline Phosphatase 95 U/L (38-126); Aspartate Aminotransferase 45 IU/L (14-36); BUN Creatinine Ratio 31.1 (6-22); Bilirubin Total 0.6 mg/dL (0.2-1.3); Blood Urea Nitrogen 19 mg/dL (7-17); Calcium 9.2 mg/dL (8.4-10.2); Carbon Dioxide 30 mmol/L (22-32); Chloride 102 mmol/L (98-107); Estimated Glomerular Filt Rate > 60 mL/min (>60); Globulin 3.3 g/dL (1.7-4.1); Glucose 83 mg/dL (80-110); HEMOLYSIS 18 (0-50); Potassium 4.5 mmol/L (3.4-5.1); Sodium 139 mmol/L (137-145); Total Protein 7.6 g/dL (6.3-8.2)
== END ==
PROVIDERS: Family Provider Internal Medicine; PCP Internal Medicine; Referring Provider Internal Medicine Rheumatology; Visit Provider Internal Medicine Rheumatology
DX: M05.79 Rheumatoid arthritis with rheumatoid factor of multiple sites without organ or systems involvement (principal); R94.5 Abnormal results of liver function studies; Z79.899 Other long term (current) drug therapy
CPT/HCPCS: 36415; 80053; 85025

== ENCOUNTER → 2023-01-12 10:58 | Outpatient (CLI) | payer MEDICARE, OTHER, SELFPAY ==
[2023-01-12 12:34] LABS: Add Manual Diff / Slide Review NO; Basophils Absolute Auto 0 /uL (0-100); Basophils Percent Auto 0.4 % (0-2); Eosinophils Absolute Auto 100 /uL (0-450); Eosinophils Percent Auto 2.4 % (2-4); Hematocrit 35.2 % (36-46); Hemoglobin 12.2 g/dL (12.0-16.0); Lymphocytes Absolute Auto 1300 /uL (1100-4500); Lymphocytes Percent Auto 39.4 % (25-40); Mean Corpuscular HGB Conc 34.5 % (30-36); Mean Corpuscular Hemoglobin 34.9 PG (26-34); Monocytes Absolute Auto 300 /uL (0-900); Monocytes Percent Auto 9.9 % (3-14); Neutrophils Absolute Auto 1600 /uL (1500-7000); Neutrophils Percent Auto 47.9 % (50-75); Platelet Count 216 X10^3/uL (150-400); Red Blood Cell Count 3.49 X10^6/uL (4.0-5.2); Red Cell Distribution Width 15.1 % (11.6-14.8); White Blood Cell Count 3.3 X10^3/uL (4.5-11.0)
[2023-01-12 13:04] LABS: Alanine Aminotransferase 31 IU/L (<35); Albumin 4.3 g/dL (3.5-5.0); Albumin Globulin Ratio 1.5 (1.0-2.8); Alkaline Phosphatase 87 U/L (38-126); Aspartate Aminotransferase 35 IU/L (14-36); BUN Creatinine Ratio 23.4 (6-22); Bilirubin Total 0.4 mg/dL (0.2-1.3); Blood Urea Nitrogen 15 mg/dL (7-17); Calcium 9.3 mg/dL (8.4-10.2); Carbon Dioxide 29 mmol/L (22-32); Chloride 104 mmol/L (98-107); Estimated Glomerular Filt Rate > 60 mL/min (>60); Globulin 2.9 g/dL (1.7-4.1); Glucose 85 mg/dL (80-110); HEMOLYSIS < 15 (0-50); Potassium 4.2 mmol/L (3.4-5.1); Sodium 139 mmol/L (137-145); Total Protein 7.2 g/dL (6.3-8.2)
== END ==
PROVIDERS: Family Provider Internal Medicine; PCP Internal Medicine; Referring Provider Internal Medicine Rheumatology; Visit Provider Internal Medicine Rheumatology
DX: M05.79 Rheumatoid arthritis with rheumatoid factor of multiple sites without organ or systems involvement (principal); Z79.899 Other long term (current) drug therapy; R94.5 Abnormal results of liver function studies
CPT/HCPCS: 36415; 80053; 85025

== ENCOUNTER 2023-02-16 12:45 | Outpatient (RCR) | payer MEDICARE, OTHER, SELFPAY ==
--- NOTE | 2022-09-22 16:58 | PT.OIE ---
Current Diagnoses Pain in right leg (09/22/22) Difficulty in walking, not elsewhere classified (09/22/22) Past Medical History (Last Updated 08/10/22 @ 09:45 by Hany Bhatia MD) History of multiple concussions Osteoarthritis Osteoarthritis, multiple sites Osteopenia after menopause Partial tear of rotator cuff Rheumatoid arthritis Sjogren's disease Vitamin D deficiency Past Surgical History (Last Reviewed 06/07/22 @ 12:34 by ELIANE Urbina) H/O foot surgery Visit Care Team Role Provider Type Hany Bhatia MD Attending Provider Physician Family Provider Primary Care Provider Referring Provider Specialty: Internal Medicine Address: [address] [place] [address], [address], [facility] Email: [email or web address] Physical Therapy Initial Evaluation PT-OP-A Visit Information Start: 09/19/22 15:17 Freq: Status: Active Protocol: Document 09/22/22 09:45 AW (Rec: 09/19/22 15:27 AW [id number]) Out-Patient Physical Therapy Visit Information Visit Information Visit Type Initial Evaluation Evaluation Information Evaluation Date 09/22/22 PT-OP-B Current Condition Start: 09/19/22 15:17 Freq: Status: Active Protocol: Document 09/22/22 09:45 AW (Rec: 09/19/22 15:27 AW [id number]) Current Condition History of Current Condition Onset Date May 2022 Current Complaints sudden onset R groin and hip pain History of Current Condition Kylah woke up with sudden onset sharp pain in her right groin on 06/07/22. She also had some right sided low back pain and lateral hip pain. She went to the [facility] who sent her to ED. X-ray was negative for fracture. She was sent home with hydrocodone. She took some but did not all. She was diagnosed with rheumatoid arthritis in April. Due to taking methotrexate, she is cautious about taking other medications. She isn't sure whether or not methotrexate has made any difference but it has not been four months yet and her pharmacy district manager suggested it could take at least four months to notice changes. Pt saw her PCP a week later with no change in pain symptoms and physician ordered MRI. MRI showed adductor strains and degenerative changes in both hips and pubic symphysis (see below). At this time, Kylah notices any movement of the leg toward the side and single leg stance on the right is painful. Hip flexion is painful. Back pain now comes and goes and she does not notice any particular pattern. She notes that she does have significant left knee OA and she takes voltaren for relief. Pt does express some concern for her balance. She denies falls but notices that she has trouble walking a straight line. Prior Treatments and Tests 06/14/22 MRI R femur: 1. Low- grade muscle strains of the proximal adductor musculature adjacent to the pubic bone. 2. Degenerative changes in the bilateral hips and pubic symphysis. 3. Mild proximal right hamstring tendinosis. 06/14/22 MRI R hip: 1. Muscular edema within the right adductor brevis and longus muscles adjacent to the pubic symphysis as well as the obturator externus muscle and the proximal right gluteus minimus muscle is consistent with low-grade muscle strains. 2. Moderate right hip osteoarthrosis with grade 2-3 chondromalacia, subchondral cystic changes and edema, and marginal osteophyte formation. Diffuse labral degeneration. 3. Degenerative changes also seen in the pubic symphysis, left hip, bilateral sacroiliac joints, and lumbar spine.4. Mild proximal hamstring tendinosis. Treatment Goals Patient/Caregiver Goals Hopes to reduce pain so she can get back to gardening, walking regularly including hiking easy trails in the [place] . She'd like to be able to lift right leg up and over larger tree roots and lift leg in out of car/bed without pain. Personal Factors Other Personal Factors That May Effect PMH includes multiple Therapy/Recovery concussions, osteopenia, rheumatoid arthritis. PT-OP-C Subjective Start: 09/19/22 15:17 Freq: Status: Active Protocol: Document 09/22/22 09:45 AW (Rec: 09/22/22 10:13 AW [id number]) OP-PT Pain Assessment Pain Assessment Grid Paper Pain Assessment Grid Completed Yes: Scanned to EMR Home Pain Medication Use Pain Medications Used Yes Home Pain Medication Frequency Takes voltaren for chronic joint pain. PT-OP-D Balance Start: 09/19/22 15:17 Freq: Status: Active Protocol: Document 09/22/22 09:45 AW (Rec: 09/22/22 10:13 AW [id number]) Balance Tests Single Limb Standing Single Limb- Right <10 sec with excess shear Single Limb- Left 15-20 sec - reports L knee pain PT-OP-F Manual Assessment Start: 09/19/22 15:17 Freq: Status: Active Protocol: Document 09/22/22 09:45 AW (Rec: 09/22/22 10:13 AW [id number]) Manual Assessments Soft Tissue Assessment Soft Tissue Mobility Assessment Tender to palpation with moderate pressure at right proximal adductors and pubic symphysis. Tender to palpation at distal right iliopsoas. Pt reports pain with pressure just posterior to right greater trochanter. Tightness noted along bilateral TFL/ITB. PT-OP-G Mobility & Gait Start: 09/19/22 15:17 Freq: Status: Active Protocol: Document 09/22/22 09:45 AW (Rec: 09/22/22 10:13 AW [id number]) OP Mobility Evaluation Bed Mobility Supine to and from Sit Difficult to lift right leg onto treatment table. Transfers Sit to Stand Able without UE support from standard height chair. Functional Movements Squats Pt states unable due to chronic left knee pain OP Gait Assessment Comments Gait Comments Gait is notable to WBOS with slight genu valgus bilaterally . Pt walks with trunk forward/ flexed at hips with limited hip extension. She has fair heelstrike at initial contact but poor pushoff bilaterally. Path deviation is noted with no obvious directional preference. PT-OP-H Neuro Start: 09/19/22 15:17 Freq: Status: Active Protocol: Document 09/22/22 09:45 AW (Rec: 09/22/22 10:21 AW [id number]) Sensation Evaluation Gross Sensation Gross Sensation WNL PT-OP-J Posture/Palpation/Skin Start: 09/19/22 15:17 Freq: Status: Active Protocol: Document 09/22/22 09:45 AW (Rec: 09/22/22 10:21 AW [id number]) Posture Evaluation Comments Posture Comments Pt stands with weight shifted toward left, slight genu valgus bilaterally. Arches are high bilaterally. PT-OP-K Range of Motion Start: 09/19/22 15:17 Freq: Status: Active Protocol: Document 09/22/22 09:45 AW (Rec: 09/22/22 10:21 AW [id number]) Hip Goniometric Range of Motion Hip right Abduction 40 Comments End-range hip flexion is painful. Pt avoids hip extension due to pain. IR:ER ration is <1:2 with pain reported at both end ranges. Functionally, pt has difficulty initiating SLR. Passively, there is no hamstring restriction noted on either side in passive SLR. left Hip ROM WFL Yes Abduction 50 Comments All ROM WLF except extension. Pt poorly tolerates position for assessment but extension is certainly lacking in gait. IR:ER ration ~1:3 Hip ROM Limitations Hip ROM Limitations Pain PT-OP-M Strength Start: 09/19/22 15:17 Freq: Status: Active Protocol: Document 09/22/22 09:45 AW (Rec: 09/22/22 10:27 AW [id number]) Hip Strength Hip Manual Muscle Testing Right Flexion (L2) 4- Good- Extension (S1) 3 Fair Abduction 4- Good- Adduction 4- Good- External Rotation 4 Good Internal Rotation 4 Good Left Flexion (L2) 4+ Good+ Extension (S1) 3 Fair Abduction 4+ Good+ Adduction 4+ Good+ External Rotation 4+ Good+ Internal Rotation 4+ Good+ Knee Strength Knee Manual Muscle Testing bilateral Flexion (S2) 4+ Good+ Extension (L3) 5 Normal Ankle/Foot Strength Ankle and Foot Manual Muscle Testing bilateral Dorsiflexion (L4) 5 Normal Plantarflexion (S1) 4 Good Toe Strength Toe Manual Muscle Testing Great Toe Extension 4 Good PT-OP-Q Treatments Start: 09/19/22 15:17 Freq: Status: Active Protocol: Document 09/22/22 09:45 AW (Rec: 09/22/22 10:27 AW [id number]) Therapeutic Exercises Supine Exercises adductor squeeze Supine Exercise Name adductor squeeze Side bilateral Equipment Used pillow Reps/Minutes ramp up 5 sec, hold 10 sec, ease off 5 sec; x10 reps Comments no pain; HEP Self-Care/Home Management Treatment Education Patient Education Home Exercise Program,Pain Management Other Education Explained evaluation findings and proposed plan of care centered around improving hip ROM and strength with careful, progressing loading of adductors and hip flexors. Discussed adding proprioceptive training for improved balance as well. Pt understood and agreed. PT-OP-T Assessment and Plan Start: 09/19/22 15:17 Freq: Status: Active Protocol: Document 09/22/22 09:45 AW (Rec: 09/22/22 10:31 AW [id number]) Physical Therapy Assessment Rehab Potential Rehabilitation Potential Good Evaluation Complexity Number of Personal Factors/Comorbidities 1-2 Number of Body Systems Impaired 3 Clinical Presentation at Evaluation Stable Impairments Impairments Balance,Gait,Pain,ROM,Soft Tissue Mobility,Strength Goals Four Impairment balance Short Term Goal (STG) Pt will score 19/24 or greater on Dynamic Gait Index. STG Duration 10/29/22 Fpc Goal (LTG) Pt will improve single leg stance to >20 seconds bilaterally without excess shear. LTG Duration 12/21/22 Three Impairment gait Short Term Goal (STG) Pt will walk 30 minutes on level surface without increase in baseline pain. STG Duration 10/29/22 Training And Development Manager Goal (LTG) Pt will walk [address] [place] [address] without increase in baseline pain. LTG Duration 12/21/22 Two Impairment pain Short Term Goal (STG) Kylah will report average numeric pain rating in her right groin/hip of 4/10 or less over a one-week period. STG Duration 10/29/22 Fpc Goal (LTG) Kylah will improve hip flexion MMT to 4+/5 or greater for greater ease with bed mobility, car transfers, and stepping over obstacles. LTG Duration 12/21/22 One Impairment lacks HEP Short Term Goal (STG) Kylah will be instructed in HEP to improve right hip range of motion and strength to support therapy services provided in clinic. STG Duration 10/29/22 Fpc Goal (LTG) Kylah will be independent with HEP to improve BLE strength and to manage her symptoms long-term. LTG Duration 12/21/22 Assessment Summary Assessment Kylah is a 72 yo woman who attends physical therapy with complaints of sudden onset right groin and lateral hip pain which started in May. She denies any trauma. MRI demonstrates multiple proximal adductor strains and diffuse labral degeneration. She presents with painful right hip abduction, resisted adduction, and painful hip flexion. She has difficulty lifting and advancing her right leg to complete bed mobility, car transfers, and obstacle clearance as needed for hiking. She is expected to benefit from skilled PT to reduce her pain and improve her functional mobility and her ability to participate in longer walks and hikes. Physical Therapy Plan Frequency and Duration Frequency of Treatment 2x/Week Plan of Care Start Date 09/22/22 Plan of Care End Date 12/21/22 Therapeutic Interventions Therapeutic Interventions Balance Training,Gait Training ,Home Exercise Program,Manual Therapy,Neuromuscular Re- education,Self-Care/Home Management,Soft Tissue Mobilization,Taping, Therapeutic Activities, Therapeutic Exercises Modalities Cold Pack/Ice Massage,Hot Packs Next Visit Focus/Plan Next Note Type Treatment Note Next Visit Plan Assess response to adduction isometrics. STM adductors and hip flexors. Assess bridge, supine clam with resistance.
--- NOTE | 2022-09-22 16:58 | PT.OPPOC ---
Physical, Occupational & Speech Therapy At [facility] Current Diagnoses Pain in right leg (09/22/22) Difficulty in walking, not elsewhere classified (09/22/22) Visit Care Team Role Provider Type Hany Bhatia MD Attending Provider Physician Family Provider Primary Care Provider Referring Provider Specialty: Internal Medicine Address: [address] [place] [address], [address], [facility] Email: [email or web address] Plan Of Care PT-OP-T Assessment and Plan Start: 09/19/22 15:17 Freq: Status: Active Protocol: Document 09/22/22 09:45 AW (Rec: 09/22/22 10:31 AW [id number]) Physical Therapy Assessment Rehab Potential Rehabilitation Potential Good Evaluation Complexity Number of Personal Factors/Comorbidities 1-2 Number of Body Systems Impaired 3 Clinical Presentation at Evaluation Stable Impairments Impairments Balance,Gait,Pain,ROM,Soft Tissue Mobility,Strength Goals Four Impairment balance Short Term Goal (STG) Pt will score 19/24 or greater on Dynamic Gait Index. STG Duration 10/29/22 Assisted Goal (LTG) Pt will improve single leg stance to >20 seconds bilaterally without excess shear. LTG Duration 12/21/22 Three Impairment gait Short Term Goal (STG) Pt will walk 30 minutes on level surface without increase in baseline pain. STG Duration 10/29/22 Beading Machine Operator Goal (LTG) Pt will walk 30 minutes [address] forest trails without increase in baseline pain. LTG Duration 12/21/22 Two Impairment pain Short Term Goal (STG) Kylah will report average numeric pain rating in her right groin/hip of 4/10 or less over a one-week period. STG Duration 10/29/22 Beading Machine Operator Goal (LTG) Kylah will improve hip flexion MMT to 4+/5 or greater for greater ease with bed mobility, car transfers, and stepping over obstacles. LTG Duration 12/21/22 One Impairment lacks HEP Short Term Goal (STG) Kylah will be instructed in HEP to improve right hip range of motion and strength to support therapy services provided in clinic. STG Duration 10/29/22 Assisted Goal (LTG) Kylah will be independent with HEP to improve BLE strength and to manage her symptoms long-term. LTG Duration 12/21/22 Assessment Summary Assessment Kylah is a 72 yo woman who attends physical therapy with complaints of sudden onset right groin and lateral hip pain which started in May. She denies any trauma. MRI demonstrates multiple proximal adductor strains and diffuse labral degeneration. She presents with painful right hip abduction, resisted adduction, and painful hip flexion. She has difficulty lifting and advancing her right leg to complete bed mobility, car transfers, and obstacle clearance as needed for hiking. She is expected to benefit from skilled PT to reduce her pain and improve her functional mobility and her ability to participate in longer walks and hikes. Physical Therapy Plan Frequency and Duration Frequency of Treatment 2x/Week Plan of Care Start Date 09/22/22 Plan of Care End Date 12/21/22 Therapeutic Interventions Therapeutic Interventions Balance Training,Gait Training ,Home Exercise Program,Manual Therapy,Neuromuscular Re- education,Self-Care/Home Management,Soft Tissue Mobilization,Taping, Therapeutic Activities, Therapeutic Exercises Modalities Cold Pack/Ice Massage,Hot Packs Next Visit Focus/Plan Next Note Type Treatment Note Next Visit Plan Assess response to adduction isometrics. STM adductors and hip flexors. Assess bridge, supine clam with resistance. Plan of Care Dates Plan of Care Start Date 09/22/22 Plan of Care End Date 12/21/22 Electronically Signed by: Ciara Nunez PT 09/22/22 [id number] If you are in agreement with this Plan of Care, please return a signed and dated copy. I have reviewed this Plan of Care and certify that the skilled therapy services above are required to meet the patient?s needs. Physician Signature Date Printed Name and Credentials Clinical Instructor Signature Printed Name and Credentials
--- NOTE | 2022-10-04 09:50 | PT.OTN ---
Current Diagnoses Pain in right leg (10/04/22) Difficulty in walking, not elsewhere classified (10/04/22) Physical Therapy Treatment Note PT-OP-A Visit Information Start: 09/19/22 15:17 Freq: Status: Active Protocol: Document 10/04/22 09:02 SP (Rec: 10/04/22 10:01 SP [id number]) Out-Patient Physical Therapy Visit Information Visit Information Visit Type Treatment Note Visit Start Time 09:02 Visit Stop Time 09:50 Total Visit Minutes 48 Visit Number 2 Number of CONSULTING ENGINEER Visits 1 Evaluation Information Evaluation Date 09/22/22 PT-OP-B Current Condition Start: 09/19/22 15:17 Freq: Status: Active Protocol: Document 09/22/22 09:45 AW (Rec: 09/19/22 15:27 AW [id number]) Current Condition History of Current Condition Onset Date May 2022 Current Complaints sudden onset R groin and hip pain History of Current Condition Kylah woke up with sudden onset sharp pain in her right groin on 06/07/22. She also had some right sided low back pain and lateral hip pain. She went to the [facility] who sent her to ED. X-ray was negative for fracture. She was sent home with hydrocodone. She took some but did not all. She was diagnosed with rheumatoid arthritis in April. Due to taking methotrexate, she is cautious about taking other medications. She isn't sure whether or not methotrexate has made any difference but it has not been four months yet and her mortgage accounting clerk suggested it could take at least four months to notice changes. Pt saw her PCP a week later with no change in pain symptoms and physician ordered MRI. MRI showed adductor strains and degenerative changes in both hips and pubic symphysis (see below). At this time, Kylah notices any movement of the leg toward the side and single leg stance on the right is painful. Hip flexion is painful. Back pain now comes and goes and she does not notice any particular pattern. She notes that she does have significant left knee OA and she takes voltaren for relief. Pt does express some concern for her balance. She denies falls but notices that she has trouble walking a straight line. Prior Treatments and Tests 06/14/22 MRI R femur: 1. Low- grade muscle strains of the proximal adductor musculature adjacent to the pubic bone. 2. Degenerative changes in the bilateral hips and pubic symphysis. 3. Mild proximal right hamstring tendinosis. 06/14/22 MRI R hip: 1. Muscular edema within the right adductor brevis and longus muscles adjacent to the pubic symphysis as well as the obturator externus muscle and the proximal right gluteus minimus muscle is consistent with low-grade muscle strains. 2. Moderate right hip osteoarthrosis with grade 2-3 chondromalacia, subchondral cystic changes and edema, and marginal osteophyte formation. Diffuse labral degeneration. 3. Degenerative changes also seen in the pubic symphysis, left hip, bilateral sacroiliac joints, and lumbar spine.4. Mild proximal hamstring tendinosis. Treatment Goals Patient/Caregiver Goals Hopes to reduce pain so she can get back to gardening, walking regularly including hiking easy trails in the [place] . She'd like to be able to lift right leg up and over larger tree roots and lift leg in out of car/bed without pain. Personal Factors Other Personal Factors That May Effect PMH includes multiple Therapy/Recovery concussions, osteopenia, rheumatoid arthritis. PT-OP-C Subjective Start: 09/19/22 15:17 Freq: Status: Active Protocol: Document 10/04/22 09:02 SP (Rec: 10/04/22 10:01 SP [id number]) OP-PT Subjective Patient Comments Patient Comments Pt reported little sore after last tx and feels doing well with exercises started last tx . PT-OP-D Balance Start: 09/19/22 15:17 Freq: Status: Active Protocol: Document 09/22/22 09:45 AW (Rec: 09/22/22 10:13 AW [id number]) Balance Tests Single Limb Standing Single Limb- Right <10 sec with excess shear Single Limb- Left 15-20 sec - reports L knee pain PT-OP-F Manual Assessment Start: 09/19/22 15:17 Freq: Status: Active Protocol: Document 09/22/22 09:45 AW (Rec: 09/22/22 10:13 AW [id number]) Manual Assessments Soft Tissue Assessment Soft Tissue Mobility Assessment Tender to palpation with moderate pressure at right proximal adductors and pubic symphysis. Tender to palpation at distal right iliopsoas. Pt reports pain with pressure just posterior to right greater trochanter. Tightness noted along bilateral TFL/ITB. PT-OP-G Mobility & Gait Start: 09/19/22 15:17 Freq: Status: Active Protocol: Document 09/22/22 09:45 AW (Rec: 09/22/22 10:13 AW [id number]) OP Mobility Evaluation Bed Mobility Supine to and from Sit Difficult to lift right leg onto treatment table. Transfers Sit to Stand Able without UE support from standard height chair. Functional Movements Squats Pt states unable due to chronic left knee pain OP Gait Assessment Comments Gait Comments Gait is notable to WBOS with slight genu valgus bilaterally . Pt walks with trunk forward/ flexed at hips with limited hip extension. She has fair heelstrike at initial contact but poor pushoff bilaterally. Path deviation is noted with no obvious directional preference. PT-OP-H Neuro Start: 09/19/22 15:17 Freq: Status: Active Protocol: Document 09/22/22 09:45 AW (Rec: 09/22/22 10:21 AW [id number]) Sensation Evaluation Gross Sensation Gross Sensation WNL PT-OP-J Posture/Palpation/Skin Start: 09/19/22 15:17 Freq: Status: Active Protocol: Document 09/22/22 09:45 AW (Rec: 09/22/22 10:21 AW [id number]) Posture Evaluation Comments Posture Comments Pt stands with weight shifted toward left, slight genu valgus bilaterally. Arches are high bilaterally. PT-OP-K Range of Motion Start: 09/19/22 15:17 Freq: Status: Active Protocol: Document 09/22/22 09:45 AW (Rec: 09/22/22 10:21 AW [id number]) Hip Goniometric Range of Motion Hip right Abduction 40 Comments End-range hip flexion is painful. Pt avoids hip extension due to pain. IR:ER ration is <1:2 with pain reported at both end ranges. Functionally, pt has difficulty initiating SLR. Passively, there is no hamstring restriction noted on either side in passive SLR. left Hip ROM WFL Yes Abduction 50 Comments All ROM WLF except extension. Pt poorly tolerates position for assessment but extension is certainly lacking in gait. IR:ER ration ~1:3 Hip ROM Limitations Hip ROM Limitations Pain PT-OP-M Strength Start: 09/19/22 15:17 Freq: Status: Active Protocol: Document 09/22/22 09:45 AW (Rec: 09/22/22 10:27 AW [id number]) Hip Strength Hip Manual Muscle Testing Right Flexion (L2) 4- Good- Extension (S1) 3 Fair Abduction 4- Good- Adduction 4- Good- External Rotation 4 Good Internal Rotation 4 Good Left Flexion (L2) 4+ Good+ Extension (S1) 3 Fair Abduction 4+ Good+ Adduction 4+ Good+ External Rotation 4+ Good+ Internal Rotation 4+ Good+ Knee Strength Knee Manual Muscle Testing bilateral Flexion (S2) 4+ Good+ Extension (L3) 5 Normal Ankle/Foot Strength Ankle and Foot Manual Muscle Testing bilateral Dorsiflexion (L4) 5 Normal Plantarflexion (S1) 4 Good Toe Strength Toe Manual Muscle Testing Great Toe Extension 4 Good PT-OP-Q Treatments Start: 09/19/22 15:17 Freq: Status: Active Protocol: Document 10/04/22 09:02 SP (Rec: 10/04/22 10:01 SP [id number]) Therapeutic Exercises Supine Exercises hip flexor stretch Supine Exercise Name trialed- stopped due to LB and intense hip flexor pain resisted clam Supine Exercise Name added to HEP Side bilateral Resistance TB #1 loop Reps/Minutes x10 Comments cued PPT, TA, painfree range leg lengthener Supine Exercise Name added to HEP adductor squeeze Supine Exercise Name adductor squeeze Side bilateral Equipment Used pillow Reps/Minutes ramp up 5 sec, hold 10 sec, ease off 5 sec; x10 reps Comments no pain; HEP Standing Exercises hip flexor stretch Standing Exercise Name trialed- stopped due to LBP hip abd, ext Standing Exercise Name trialed - stopped due to LBP Comments unable to maintain PPT Manual Therapy Treatment Soft Tissue Mobilization adductors, quad, hip flexors Body Location R TFL, rec fem, add longus, pectineus Mobilization Type Strumming,Sustained Pressure, Other Intensity/Depth Moderate Body Position Hooklying Comments manual and self instruction strum and pin MWM add, hip flex muscle initiation PT-OP-T Assessment and Plan Start: 09/19/22 15:17 Freq: Status: Active Protocol: Document 10/04/22 09:02 SP (Rec: 10/04/22 10:01 SP [id number]) Physical Therapy Assessment Goals Four Impairment balance Short Term Goal (STG) Pt will score 19/24 or greater on Dynamic Gait Index. STG Duration 10/29/22 Group Home Goal (LTG) Pt will improve single leg stance to >20 seconds bilaterally without excess shear. LTG Duration 12/21/22 Three Impairment gait Short Term Goal (STG) Pt will walk 30 minutes on level surface without increase in baseline pain. STG Duration 10/29/22 Housing Inspector Goal (LTG) Pt will walk [address] without increase in baseline pain. LTG Duration 12/21/22 Two Impairment pain Short Term Goal (STG) Kylah will report average numeric pain rating in her right groin/hip of 4/10 or less over a one-week period. STG Duration 10/29/22 Housing Inspector Goal (LTG) Kylah will improve hip flexion MMT to 4+/5 or greater for greater ease with bed mobility, car transfers, and stepping over obstacles. LTG Duration 12/21/22 One Impairment lacks HEP Short Term Goal (STG) Kylah will be instructed in HEP to improve right hip range of motion and strength to support therapy services provided in clinic. STG Duration 10/29/22 Housing Inspector Goal (LTG) Kylah will be independent with HEP to improve BLE strength and to manage her symptoms long-term. LTG Duration 12/21/22 Assessment Summary Assessment Pt improved adductor flexibility, leg lengthener and added hip abd fac resisted clamshell this tx. Good understanding PPT/TA for no LB recruitment. GOod feedback response. Physical Therapy Plan Frequency and Duration Frequency of Treatment 2x/Week Plan of Care Start Date 09/22/22 Plan of Care End Date 12/21/22 Therapeutic Interventions Therapeutic Interventions Balance Training,Gait Training ,Home Exercise Program,Manual Therapy,Neuromuscular Re- education,Self-Care/Home Management,Soft Tissue Mobilization,Taping, Therapeutic Activities, Therapeutic Exercises Modalities Cold Pack/Ice Massage,Hot Packs Next Visit Focus/Plan Next Note Type Treatment Note Next Visit Plan Assess response to manual and self instructed adduction isometrics, leg lengthener, resisted clam, adductor stretch. POC: STM adductors and hip flexors. Assess bridge, supine clam with resistance.
--- NOTE | 2022-10-08 15:47 | PT.OTN ---
Current Diagnoses Pain in right leg (10/08/22) Difficulty in walking, not elsewhere classified (10/08/22) Physical Therapy Treatment Note PT-OP-A Visit Information Start: 09/19/22 15:17 Freq: Status: Active Protocol: Document 10/08/22 11:19 AMB (Rec: 10/08/22 11:52 AMB [id number]) Out-Patient Physical Therapy Visit Information Visit Information Visit Type Treatment Note Visit Start Time 11:15 Visit Stop Time 12:00 Total Visit Minutes 45 Visit Number 3 Number of STAFF ANESTHESIOLOGIST Visits 0 PT-OP-B Current Condition Start: 09/19/22 15:17 Freq: Status: Active Protocol: Document 09/22/22 09:45 AW (Rec: 09/19/22 15:27 AW [id number]) Current Condition History of Current Condition Onset Date May 2022 Current Complaints sudden onset R groin and hip pain History of Current Condition Kylah woke up with sudden onset sharp pain in her right groin on 06/07/22. She also had some right sided low back pain and lateral hip pain. She went to the [facility] who sent her to ED. X-ray was negative for fracture. She was sent home with hydrocodone. She took some but did not all. She was diagnosed with rheumatoid arthritis in April. Due to taking methotrexate, she is cautious about taking other medications. She isn't sure whether or not methotrexate has made any difference but it has not been four months yet and her edge stainer suggested it could take at least four months to notice changes. Pt saw her PCP a week later with no change in pain symptoms and physician ordered MRI. MRI showed adductor strains and degenerative changes in both hips and pubic symphysis (see below). At this time, Kylah notices any movement of the leg toward the side and single leg stance on the right is painful. Hip flexion is painful. Back pain now comes and goes and she does not notice any particular pattern. She notes that she does have significant left knee OA and she takes voltaren for relief. Pt does express some concern for her balance. She denies falls but notices that she has trouble walking a straight line. Prior Treatments and Tests 06/14/22 MRI R femur: 1. Low- grade muscle strains of the proximal adductor musculature adjacent to the pubic bone. 2. Degenerative changes in the bilateral hips and pubic symphysis. 3. Mild proximal right hamstring tendinosis. 06/14/22 MRI R hip: 1. Muscular edema within the right adductor brevis and longus muscles adjacent to the pubic symphysis as well as the obturator externus muscle and the proximal right gluteus minimus muscle is consistent with low-grade muscle strains. 2. Moderate right hip osteoarthrosis with grade 2-3 chondromalacia, subchondral cystic changes and edema, and marginal osteophyte formation. Diffuse labral degeneration. 3. Degenerative changes also seen in the pubic symphysis, left hip, bilateral sacroiliac joints, and lumbar spine.4. Mild proximal hamstring tendinosis. Treatment Goals Patient/Caregiver Goals Hopes to reduce pain so she can get back to gardening, walking regularly including hiking easy trails in the [place] . She'd like to be able to lift right leg up and over larger tree roots and lift leg in out of car/bed without pain. Personal Factors Other Personal Factors That May Effect PMH includes multiple Therapy/Recovery concussions, osteopenia, rheumatoid arthritis. PT-OP-C Subjective Start: 09/19/22 15:17 Freq: Status: Active Protocol: Document 10/08/22 15:29 AMB (Rec: 10/08/22 15:47 AMB [id number]) OP-PT Subjective Patient Comments Patient Comments Pt has been doing her exercises, feels about the same. PT-OP-D Balance Start: 09/19/22 15:17 Freq: Status: Active Protocol: Document 09/22/22 09:45 AW (Rec: 09/22/22 10:13 AW [id number]) Balance Tests Single Limb Standing Single Limb- Right <10 sec with excess shear Single Limb- Left 15-20 sec - reports L knee pain PT-OP-F Manual Assessment Start: 09/19/22 15:17 Freq: Status: Active Protocol: Document 09/22/22 09:45 AW (Rec: 09/22/22 10:13 AW [id number]) Manual Assessments Soft Tissue Assessment Soft Tissue Mobility Assessment Tender to palpation with moderate pressure at right proximal adductors and pubic symphysis. Tender to palpation at distal right iliopsoas. Pt reports pain with pressure just posterior to right greater trochanter. Tightness noted along bilateral TFL/ITB. PT-OP-G Mobility & Gait Start: 09/19/22 15:17 Freq: Status: Active Protocol: Document 09/22/22 09:45 AW (Rec: 09/22/22 10:13 AW [id number]) OP Mobility Evaluation Bed Mobility Supine to and from Sit Difficult to lift right leg onto treatment table. Transfers Sit to Stand Able without UE support from standard height chair. Functional Movements Squats Pt states unable due to chronic left knee pain OP Gait Assessment Comments Gait Comments Gait is notable to WBOS with slight genu valgus bilaterally . Pt walks with trunk forward/ flexed at hips with limited hip extension. She has fair heelstrike at initial contact but poor pushoff bilaterally. Path deviation is noted with no obvious directional preference. PT-OP-H Neuro Start: 09/19/22 15:17 Freq: Status: Active Protocol: Document 09/22/22 09:45 AW (Rec: 09/22/22 10:21 AW [id number]) Sensation Evaluation Gross Sensation Gross Sensation WNL PT-OP-J Posture/Palpation/Skin Start: 09/19/22 15:17 Freq: Status: Active Protocol: Document 09/22/22 09:45 AW (Rec: 09/22/22 10:21 AW [id number]) Posture Evaluation Comments Posture Comments Pt stands with weight shifted toward left, slight genu valgus bilaterally. Arches are high bilaterally. PT-OP-K Range of Motion Start: 09/19/22 15:17 Freq: Status: Active Protocol: Document 09/22/22 09:45 AW (Rec: 09/22/22 10:21 AW [id number]) Hip Goniometric Range of Motion Hip right Abduction 40 Comments End-range hip flexion is painful. Pt avoids hip extension due to pain. IR:ER ration is <1:2 with pain reported at both end ranges. Functionally, pt has difficulty initiating SLR. Passively, there is no hamstring restriction noted on either side in passive SLR. left Hip ROM WFL Yes Abduction 50 Comments All ROM WLF except extension. Pt poorly tolerates position for assessment but extension is certainly lacking in gait. IR:ER ration ~1:3 Hip ROM Limitations Hip ROM Limitations Pain PT-OP-M Strength Start: 09/19/22 15:17 Freq: Status: Active Protocol: Document 09/22/22 09:45 AW (Rec: 09/22/22 10:27 AW [id number]) Hip Strength Hip Manual Muscle Testing Right Flexion (L2) 4- Good- Extension (S1) 3 Fair Abduction 4- Good- Adduction 4- Good- External Rotation 4 Good Internal Rotation 4 Good Left Flexion (L2) 4+ Good+ Extension (S1) 3 Fair Abduction 4+ Good+ Adduction 4+ Good+ External Rotation 4+ Good+ Internal Rotation 4+ Good+ Knee Strength Knee Manual Muscle Testing bilateral Flexion (S2) 4+ Good+ Extension (L3) 5 Normal Ankle/Foot Strength Ankle and Foot Manual Muscle Testing bilateral Dorsiflexion (L4) 5 Normal Plantarflexion (S1) 4 Good Toe Strength Toe Manual Muscle Testing Great Toe Extension 4 Good PT-OP-Q Treatments Start: 09/19/22 15:17 Freq: Status: Active Protocol: Document 10/08/22 15:29 AMB (Rec: 10/08/22 15:47 AMB [id number]) Therapeutic Exercises Supine Exercises hip flexor stretch Supine Exercise Name therapist controlled descent, kept thigh above table Reps/Minutes 30x2 resisted clam Supine Exercise Name added to HEP Side bilateral Resistance TB #1 loop Reps/Minutes x10 Comments cued PPT, TA, painfree range Standing Exercises hip flexor stretch Standing Exercise Name cues for posterior pelvic tilt Reps/Minutes 30x2 Manual Therapy Treatment Soft Tissue Mobilization adductors, quad, hip flexors Body Location R TFL, rec fem, add longus, pectineus Mobilization Type Strumming,Sustained Pressure, Other Intensity/Depth Moderate Body Position Hooklying Comments manual and self instruction strum and pin MWM add, hip flex muscle initiation PT-OP-T Assessment and Plan Start: 09/19/22 15:17 Freq: Status: Active Protocol: Document 10/08/22 15:29 AMB (Rec: 10/08/22 15:47 AMB [id number]) Physical Therapy Assessment Goals Four Impairment balance Short Term Goal (STG) Pt will score 19/24 or greater on Dynamic Gait Index. STG Duration 10/29/22 Stripper Apprentice Goal (LTG) Pt will improve single leg stance to >20 seconds bilaterally without excess shear. LTG Duration 12/21/22 Three Impairment gait Short Term Goal (STG) Pt will walk 30 minutes on level surface without increase in baseline pain. STG Duration 10/29/22 Stripper Apprentice Goal (LTG) Pt will walk [address] without increase in baseline pain. LTG Duration 12/21/22 Two Impairment pain Short Term Goal (STG) Kylah will report average numeric pain rating in her right groin/hip of 4/10 or less over a one-week period. STG Duration 10/29/22 Assisted Goal (LTG) Kylah will improve hip flexion MMT to 4+/5 or greater for greater ease with bed mobility, car transfers, and stepping over obstacles. LTG Duration 12/21/22 One Impairment lacks HEP Short Term Goal (STG) Kylah will be instructed in HEP to improve right hip range of motion and strength to support therapy services provided in clinic. STG Duration 10/29/22 Assisted Goal (LTG) Kylah will be independent with HEP to improve BLE strength and to manage her symptoms long-term. LTG Duration 12/21/22 Assessment Summary Assessment Pt's groin strain sx about the same since starting PT. Did encourage pt to work gently on balance as that is impaired. Time spent discussing body mechanics of car transfer, encouraged to heat as needed gentle stretching, try to avoid fast movements/movements that are painful kelly lateral stepping. Physical Therapy Plan Frequency and Duration Frequency of Treatment 2x/Week Plan of Care Start Date 09/22/22 Plan of Care End Date 12/21/22 Therapeutic Interventions Therapeutic Interventions Balance Training,Gait Training ,Home Exercise Program,Manual Therapy,Neuromuscular Re- education,Self-Care/Home Management,Soft Tissue Mobilization,Taping, Therapeutic Activities, Therapeutic Exercises Modalities Cold Pack/Ice Massage,Hot Packs Next Visit Focus/Plan Next Note Type Treatment Note Next Visit Plan Assess response to manual and self instructed adduction isometrics, leg lengthener, resisted clam, adductor stretch. POC: STM adductors and hip flexors. Assess bridge, supine clam with resistance.
--- NOTE | 2022-10-13 14:53 | PT.OTN ---
Current Diagnoses Pain in right leg (10/13/22) Difficulty in walking, not elsewhere classified (10/13/22) Physical Therapy Treatment Note PT-OP-A Visit Information Start: 09/19/22 15:17 Freq: Status: Active Protocol: Document 10/13/22 10:33 SAK (Rec: 10/13/22 11:21 SAK [id number]) Out-Patient Physical Therapy Visit Information Visit Information Visit Type Treatment Note Visit Start Time 10:33 Visit Stop Time 11:15 Total Visit Minutes 43 Visit Number 4 Number of TECHNICAL ADMINISTRATIVE ASSISTANT Visits 0 PT-OP-B Current Condition Start: 09/19/22 15:17 Freq: Status: Active Protocol: Document 10/13/22 10:33 SAK (Rec: 10/13/22 11:21 SAK [id number]) Current Condition History of Current Condition Onset Date May 2022 Current Complaints sudden onset R groin and hip pain History of Current Condition Kylah woke up with sudden onset sharp pain in her right groin on 06/07/22. She also had some right sided low back pain and lateral hip pain. She went to the [facility] who sent her to ED. X-ray was negative for fracture. She was sent home with hydrocodone. She took some but did not all. She was diagnosed with rheumatoid arthritis in April. Due to taking methotrexate, she is cautious about taking other medications. She isn't sure whether or not methotrexate has made any difference but it has not been four months yet and her oceanic sciences professor suggested it could take at least four months to notice changes. Pt saw her PCP a week later with no change in pain symptoms and physician ordered MRI. MRI showed adductor strains and degenerative changes in both hips and pubic symphysis (see below). At this time, Kylah notices any movement of the leg toward the side and single leg stance on the right is painful. Hip flexion is painful. Back pain now comes and goes and she does not notice any particular pattern. She notes that she does have significant left knee OA and she takes voltaren for relief. Pt does express some concern for her balance. She denies falls but notices that she has trouble walking a straight line. Prior Treatments and Tests 06/14/22 MRI R femur: 1. Low- grade muscle strains of the proximal adductor musculature adjacent to the pubic bone. 2. Degenerative changes in the bilateral hips and pubic symphysis. 3. Mild proximal right hamstring tendinosis. 06/14/22 MRI R hip: 1. Muscular edema within the right adductor brevis and longus muscles adjacent to the pubic symphysis as well as the obturator externus muscle and the proximal right gluteus minimus muscle is consistent with low-grade muscle strains. 2. Moderate right hip osteoarthrosis with grade 2-3 chondromalacia, subchondral cystic changes and edema, and marginal osteophyte formation. Diffuse labral degeneration. 3. Degenerative changes also seen in the pubic symphysis, left hip, bilateral sacroiliac joints, and lumbar spine.4. Mild proximal hamstring tendinosis. PT-OP-C Subjective Start: 09/19/22 15:17 Freq: Status: Active Protocol: Document 10/13/22 10:33 SAK (Rec: 10/13/22 11:21 SAK [id number]) OP-PT Subjective Patient Comments Patient Comments Hasnt been taking walks mostly due to weather, not pain. Maybe a little less pain. Most painful lifting leg up or taking stepl out to the side. PT-OP-D Balance Start: 09/19/22 15:17 Freq: Status: Active Protocol: Document 09/22/22 09:45 AW (Rec: 09/22/22 10:13 AW [id number]) Balance Tests Single Limb Standing Single Limb- Right <10 sec with excess shear Single Limb- Left 15-20 sec - reports L knee pain PT-OP-F Manual Assessment Start: 09/19/22 15:17 Freq: Status: Active Protocol: Document 09/22/22 09:45 AW (Rec: 09/22/22 10:13 AW [id number]) Manual Assessments Soft Tissue Assessment Soft Tissue Mobility Assessment Tender to palpation with moderate pressure at right proximal adductors and pubic symphysis. Tender to palpation at distal right iliopsoas. Pt reports pain with pressure just posterior to right greater trochanter. Tightness noted along bilateral TFL/ITB. PT-OP-G Mobility & Gait Start: 09/19/22 15:17 Freq: Status: Active Protocol: Document 09/22/22 09:45 AW (Rec: 09/22/22 10:13 AW [id number]) OP Mobility Evaluation Bed Mobility Supine to and from Sit Difficult to lift right leg onto treatment table. Transfers Sit to Stand Able without UE support from standard height chair. Functional Movements Squats Pt states unable due to chronic left knee pain OP Gait Assessment Comments Gait Comments Gait is notable to WBOS with slight genu valgus bilaterally . Pt walks with trunk forward/ flexed at hips with limited hip extension. She has fair heelstrike at initial contact but poor pushoff bilaterally. Path deviation is noted with no obvious directional preference. PT-OP-H Neuro Start: 09/19/22 15:17 Freq: Status: Active Protocol: Document 09/22/22 09:45 AW (Rec: 09/22/22 10:21 AW [id number]) Sensation Evaluation Gross Sensation Gross Sensation WNL PT-OP-J Posture/Palpation/Skin Start: 09/19/22 15:17 Freq: Status: Active Protocol: Document 09/22/22 09:45 AW (Rec: 09/22/22 10:21 AW [id number]) Posture Evaluation Comments Posture Comments Pt stands with weight shifted toward left, slight genu valgus bilaterally. Arches are high bilaterally. PT-OP-K Range of Motion Start: 09/19/22 15:17 Freq: Status: Active Protocol: Document 09/22/22 09:45 AW (Rec: 09/22/22 10:21 AW [id number]) Hip Goniometric Range of Motion Hip right Abduction 40 Comments End-range hip flexion is painful. Pt avoids hip extension due to pain. IR:ER ration is <1:2 with pain reported at both end ranges. Functionally, pt has difficulty initiating SLR. Passively, there is no hamstring restriction noted on either side in passive SLR. left Hip ROM WFL Yes Abduction 50 Comments All ROM WLF except extension. Pt poorly tolerates position for assessment but extension is certainly lacking in gait. IR:ER ration ~1:3 Hip ROM Limitations Hip ROM Limitations Pain PT-OP-M Strength Start: 09/19/22 15:17 Freq: Status: Active Protocol: Document 09/22/22 09:45 AW (Rec: 09/22/22 10:27 AW [id number]) Hip Strength Hip Manual Muscle Testing Right Flexion (L2) 4- Good- Extension (S1) 3 Fair Abduction 4- Good- Adduction 4- Good- External Rotation 4 Good Internal Rotation 4 Good Left Flexion (L2) 4+ Good+ Extension (S1) 3 Fair Abduction 4+ Good+ Adduction 4+ Good+ External Rotation 4+ Good+ Internal Rotation 4+ Good+ Knee Strength Knee Manual Muscle Testing bilateral Flexion (S2) 4+ Good+ Extension (L3) 5 Normal Ankle/Foot Strength Ankle and Foot Manual Muscle Testing bilateral Dorsiflexion (L4) 5 Normal Plantarflexion (S1) 4 Good Toe Strength Toe Manual Muscle Testing Great Toe Extension 4 Good PT-OP-Q Treatments Start: 09/19/22 15:17 Freq: Status: Active Protocol: Document 10/13/22 10:33 [facility] (Rec: 10/13/22 11:21 [facility] [id number]) Cardio Equipment Recumbent Elliptical (Biodex) Duration (Minutes) 5 Resistance 2 Seat Position 9 Other cues for alignment Therapeutic Exercises Supine Exercises butterfly stretch Equipment Used pillows for support lateral right LE Reps/Minutes 30 x 2 Comments cues for relaxation into support for inc stretch hip flexor stretch Supine Exercise Name therapist controlled descent, kept thigh above table Reps/Minutes 30x2 Standing Exercises hip flexor stretch Standing Exercise Name cues for posterior pelvic tilt Reps/Minutes 30x2 Comments denied pain, good PPT hip abd, ext Standing Exercise Name added flex and add, gentle Resistance L1 TB Reps/Minutes 5x ea Comments cues for PPT, pain-free Gait Training Gait Activity stairs Surface 4>6 stairs Distance/Duration 1x4, 2x6 short flights Treatment Focus gluteal activation, posture Manual Therapy Treatment Soft Tissue Mobilization adductors, quad, hip flexors Body Location R TFL, rec fem, add longus, pectineus Mobilization Type Strumming,Sustained Pressure, Other Intensity/Depth Moderate Body Position Hooklying Comments manual and self instruction strum and pin MWM add, hip flex muscle initiation PT-OP-T Assessment and Plan Start: 09/19/22 15:17 Freq: Status: Active Protocol: Document 10/13/22 10:33 [facility] (Rec: 10/13/22 11:21 [facility] [id number]) Physical Therapy Assessment Goals Four Impairment balance Short Term Goal (STG) Pt will score 19/24 or greater on Dynamic Gait Index. STG Duration 10/29/22 Fpc Goal (LTG) Pt will improve single leg stance to >20 seconds bilaterally without excess shear. LTG Duration 12/21/22 Three Impairment gait Short Term Goal (STG) Pt will walk 30 minutes on level surface without increase in baseline pain. STG Duration 10/29/22 Fpc Goal (LTG) Pt will walk [address] [place] without increase in baseline pain. LTG Duration 12/21/22 Two Impairment pain Short Term Goal (STG) Kylah will report average numeric pain rating in her right groin/hip of 4/10 or less over a one-week period. STG Duration 10/29/22 Steel Spar Operator Goal (LTG) Kylah will improve hip flexion MMT to 4+/5 or greater for greater ease with bed mobility, car transfers, and stepping over obstacles. LTG Duration 12/21/22 One Impairment lacks HEP Short Term Goal (STG) Kylah will be instructed in HEP to improve right hip range of motion and strength to support therapy services provided in clinic. STG Duration 10/29/22 Fpc Goal (LTG) Kylah will be independent with HEP to improve BLE strength and to manage her symptoms long-term. LTG Duration 12/21/22 Assessment Summary Assessment Some improvement noted in pain and ROM. Improved muscle relaxation with support of pillows for adductor stretch. Improved understanding of pin and stretch and use of tennis ball, rolling pin for self massage. Physical Therapy Plan Frequency and Duration Frequency of Treatment 2x/Week Plan of Care Start Date 09/22/22 Plan of Care End Date 12/21/22 Therapeutic Interventions Therapeutic Interventions Balance Training,Gait Training ,Home Exercise Program,Manual Therapy,Neuromuscular Re- education,Self-Care/Home Management,Soft Tissue Mobilization,Taping, Therapeutic Activities, Therapeutic Exercises Modalities Cold Pack/Ice Massage,Hot Packs Next Visit Focus/Plan Next Note Type Treatment Note Next Visit Plan POC: STM adductors and hip flexors. Assess bridge, supine clam with resistance, standing 4-way with TB.
--- NOTE | 2022-10-15 11:17 | PT.OTN ---
Current Diagnoses Pain in right leg (10/15/22) Difficulty in walking, not elsewhere classified (10/15/22) Physical Therapy Treatment Note PT-OP-A Visit Information Start: 09/19/22 15:17 Freq: Status: Active Protocol: Document 10/15/22 10:39 SP (Rec: 10/15/22 11:30 SP [id number]) Out-Patient Physical Therapy Visit Information Visit Information Visit Type Treatment Note Visit Start Time 10:39 Visit Stop Time 11:17 Total Visit Minutes 38 Visit Number 5 Number of WRITING CENTER DIRECTOR Visits 1 Evaluation Information Evaluation Date 09/22/22 PT-OP-B Current Condition Start: 09/19/22 15:17 Freq: Status: Active Protocol: Document 10/13/22 10:33 SAK (Rec: 10/13/22 11:21 SAK [id number]) Current Condition History of Current Condition Onset Date May 2022 Current Complaints sudden onset R groin and hip pain History of Current Condition Kylah woke up with sudden onset sharp pain in her right groin on 06/07/22. She also had some right sided low back pain and lateral hip pain. She went to the [facility] who sent her to ED. X-ray was negative for fracture. She was sent home with hydrocodone. She took some but did not all. She was diagnosed with rheumatoid arthritis in April. Due to taking methotrexate, she is cautious about taking other medications. She isn't sure whether or not methotrexate has made any difference but it has not been four months yet and her train master suggested it could take at least four months to notice changes. Pt saw her PCP a week later with no change in pain symptoms and physician ordered MRI. MRI showed adductor strains and degenerative changes in both hips and pubic symphysis (see below). At this time, Kylah notices any movement of the leg toward the side and single leg stance on the right is painful. Hip flexion is painful. Back pain now comes and goes and she does not notice any particular pattern. She notes that she does have significant left knee OA and she takes voltaren for relief. Pt does express some concern for her balance. She denies falls but notices that she has trouble walking a straight line. Prior Treatments and Tests 06/14/22 MRI R femur: 1. Low- grade muscle strains of the proximal adductor musculature adjacent to the pubic bone. 2. Degenerative changes in the bilateral hips and pubic symphysis. 3. Mild proximal right hamstring tendinosis. 06/14/22 MRI R hip: 1. Muscular edema within the right adductor brevis and longus muscles adjacent to the pubic symphysis as well as the obturator externus muscle and the proximal right gluteus minimus muscle is consistent with low-grade muscle strains. 2. Moderate right hip osteoarthrosis with grade 2-3 chondromalacia, subchondral cystic changes and edema, and marginal osteophyte formation. Diffuse labral degeneration. 3. Degenerative changes also seen in the pubic symphysis, left hip, bilateral sacroiliac joints, and lumbar spine.4. Mild proximal hamstring tendinosis. PT-OP-C Subjective Start: 09/19/22 15:17 Freq: Status: Active Protocol: Document 10/15/22 10:39 SP (Rec: 10/15/22 11:30 SP [id number]) OP-PT Subjective Patient Comments Patient Comments Pt reports little sore but gone by end day. PT-OP-D Balance Start: 09/19/22 15:17 Freq: Status: Active Protocol: Document 09/22/22 09:45 AW (Rec: 09/22/22 10:13 AW [id number]) Balance Tests Single Limb Standing Single Limb- Right <10 sec with excess shear Single Limb- Left 15-20 sec - reports L knee pain PT-OP-F Manual Assessment Start: 09/19/22 15:17 Freq: Status: Active Protocol: Document 09/22/22 09:45 AW (Rec: 09/22/22 10:13 AW [id number]) Manual Assessments Soft Tissue Assessment Soft Tissue Mobility Assessment Tender to palpation with moderate pressure at right proximal adductors and pubic symphysis. Tender to palpation at distal right iliopsoas. Pt reports pain with pressure just posterior to right greater trochanter. Tightness noted along bilateral TFL/ITB. PT-OP-G Mobility & Gait Start: 09/19/22 15:17 Freq: Status: Active Protocol: Document 09/22/22 09:45 AW (Rec: 09/22/22 10:13 AW [id number]) OP Mobility Evaluation Bed Mobility Supine to and from Sit Difficult to lift right leg onto treatment table. Transfers Sit to Stand Able without UE support from standard height chair. Functional Movements Squats Pt states unable due to chronic left knee pain OP Gait Assessment Comments Gait Comments Gait is notable to WBOS with slight genu valgus bilaterally . Pt walks with trunk forward/ flexed at hips with limited hip extension. She has fair heelstrike at initial contact but poor pushoff bilaterally. Path deviation is noted with no obvious directional preference. PT-OP-H Neuro Start: 09/19/22 15:17 Freq: Status: Active Protocol: Document 09/22/22 09:45 AW (Rec: 09/22/22 10:21 AW [id number]) Sensation Evaluation Gross Sensation Gross Sensation WNL PT-OP-J Posture/Palpation/Skin Start: 09/19/22 15:17 Freq: Status: Active Protocol: Document 09/22/22 09:45 AW (Rec: 09/22/22 10:21 AW [id number]) Posture Evaluation Comments Posture Comments Pt stands with weight shifted toward left, slight genu valgus bilaterally. Arches are high bilaterally. PT-OP-K Range of Motion Start: 09/19/22 15:17 Freq: Status: Active Protocol: Document 09/22/22 09:45 AW (Rec: 09/22/22 10:21 AW [id number]) Hip Goniometric Range of Motion Hip right Abduction 40 Comments End-range hip flexion is painful. Pt avoids hip extension due to pain. IR:ER ration is <1:2 with pain reported at both end ranges. Functionally, pt has difficulty initiating SLR. Passively, there is no hamstring restriction noted on either side in passive SLR. left Hip ROM WFL Yes Abduction 50 Comments All ROM WLF except extension. Pt poorly tolerates position for assessment but extension is certainly lacking in gait. IR:ER ration ~1:3 Hip ROM Limitations Hip ROM Limitations Pain PT-OP-M Strength Start: 09/19/22 15:17 Freq: Status: Active Protocol: Document 09/22/22 09:45 AW (Rec: 09/22/22 10:27 AW [id number]) Hip Strength Hip Manual Muscle Testing Right Flexion (L2) 4- Good- Extension (S1) 3 Fair Abduction 4- Good- Adduction 4- Good- External Rotation 4 Good Internal Rotation 4 Good Left Flexion (L2) 4+ Good+ Extension (S1) 3 Fair Abduction 4+ Good+ Adduction 4+ Good+ External Rotation 4+ Good+ Internal Rotation 4+ Good+ Knee Strength Knee Manual Muscle Testing bilateral Flexion (S2) 4+ Good+ Extension (L3) 5 Normal Ankle/Foot Strength Ankle and Foot Manual Muscle Testing bilateral Dorsiflexion (L4) 5 Normal Plantarflexion (S1) 4 Good Toe Strength Toe Manual Muscle Testing Great Toe Extension 4 Good PT-OP-Q Treatments Start: 09/19/22 15:17 Freq: Status: Active Protocol: Document 10/15/22 10:39 SP (Rec: 10/15/22 11:30 SP [id number]) Therapeutic Exercises Supine Exercises butterfly stretch Supine Exercise Name HEP reviewed Side right Equipment Used therapist support then able to remove Reps/Minutes 30 x 2 Comments cues for relaxation into support for inc stretch hip flexor stretch Supine Exercise Name therapist support initially then ed lay angles femur supported on table Side right Reps/Minutes 30x2 Comments improved self stretch femur support ontable and inch off tolerance resisted clam Supine Exercise Name HEP reviewed Side bilateral Resistance TB #1 loop Reps/Minutes x12 Comments pt reported felt more isolated work vs standing abd leg lengthener Supine Exercise Name reviewed if getting a stretch and beneficial Side right Reps/Minutes 3x20 SH Comments knee extension, heel press away- PPT awareness Standing Exercises hip abd, ext Standing Exercise Name reviewed HEP: flex, add, abd, ext Side right Resistance L1 TB Reps/Minutes x10 reps each direction, trial 5 sec 2 reps for proper form written on HO Comments cues for posturing, TA/PPT, slow con/ecc pain-free Manual Therapy Treatment Soft Tissue Mobilization adductors, quad, hip flexors Body Location R TFL, rec fem, add longus, pectineus Mobilization Type Strumming,Sustained Pressure, Other Intensity/Depth Moderate Body Position Hooklying Comments manual and self instruction strum and pin MWM add, hip flex muscle initiation, use tennis ball muscle fibers, manual tendon at pubic bone attachment site PT-OP-T Assessment and Plan Start: 09/19/22 15:17 Freq: Status: Active Protocol: Document 10/15/22 10:39 SP (Rec: 10/15/22 11:30 SP [id number]) Physical Therapy Assessment Goals Four Impairment balance Short Term Goal (STG) Pt will score 19/24 or greater on Dynamic Gait Index. STG Duration 10/29/22 Fur Remodeler Goal (LTG) Pt will improve single leg stance to >20 seconds bilaterally without excess shear. LTG Duration 12/21/22 Three Impairment gait Short Term Goal (STG) Pt will walk 30 minutes on level surface without increase in baseline pain. STG Duration 10/29/22 Penitentiary Goal (LTG) Pt [place] [address] [place] in baseline pain. LTG Duration 12/21/22 Two Impairment pain Short Term Goal (STG) Kylah will report average numeric pain rating in her right groin/hip of 4/10 or less over a one-week period. STG Duration 10/29/22 Fur Remodeler Goal (LTG) Kylah will improve hip flexion MMT to 4+/5 or greater for greater ease with bed mobility, car transfers, and stepping over obstacles. LTG Duration 12/21/22 One Impairment lacks HEP Short Term Goal (STG) Kylah will be instructed in HEP to improve right hip range of motion and strength to support therapy services provided in clinic. STG Duration 10/29/22 Penitentiary Goal (LTG) Kylah will be independent with HEP to improve BLE strength and to manage her symptoms long-term. LTG Duration 12/21/22 Assessment Summary Assessment Tx focused on proper set up/ form with 4 way hip, provided TB #1 for home use and how anchor in door vs tied around post. Improved self STMs w/ tennis ball ed manual at pubic bone and able allow RLE off table femur supported end tx. Physical Therapy Plan Frequency and Duration Frequency of Treatment 2x/Week Plan of Care Start Date 09/22/22 Plan of Care End Date 12/21/22 Therapeutic Interventions Therapeutic Interventions Balance Training,Gait Training ,Home Exercise Program,Manual Therapy,Neuromuscular Re- education,Self-Care/Home Management,Soft Tissue Mobilization,Taping, Therapeutic Activities, Therapeutic Exercises Modalities Cold Pack/Ice Massage,Hot Packs Next Visit Focus/Plan Next Note Type Treatment Note Next Visit Plan manual/hip abd fac eccentric adductor. POC: STM adductors and hip flexors. Assess bridge.
--- NOTE | 2022-10-19 12:38 | PT.OTN ---
Current Diagnoses Pain in right leg (10/19/22) Difficulty in walking, not elsewhere classified (10/19/22) Physical Therapy Treatment Note PT-OP-A Visit Information Start: 09/19/22 15:17 Freq: Status: Active Protocol: Document 10/19/22 09:15 TH (Rec: 10/19/22 12:37 TH [id number]) Out-Patient Physical Therapy Visit Information Visit Information Visit Type Treatment Note Visit Start Time 09:15 Visit Stop Time 09:45 Total Visit Minutes 30 Visit Number 6 Number of [employer] Visits 1 PT-OP-B Current Condition Start: 09/19/22 15:17 Freq: Status: Active Protocol: Document 10/13/22 10:33 SAK (Rec: 10/13/22 11:21 SAK [id number]) Current Condition History of Current Condition Onset Date May 2022 Current Complaints sudden onset R groin and hip pain History of Current Condition Kylah woke up with sudden onset sharp pain in her right groin on 06/07/22. She also had some right sided low back pain and lateral hip pain. She went to the [facility] who sent her to ED. X-ray was negative for fracture. She was sent home with hydrocodone. She took some but did not all. She was diagnosed with rheumatoid arthritis in April. Due to taking methotrexate, she is cautious about taking other medications. She isn't sure whether or not methotrexate has made any difference but it has not been four months yet and her logistics program manager suggested it could take at least four months to notice changes. Pt saw her PCP a week later with no change in pain symptoms and physician ordered MRI. MRI showed adductor strains and degenerative changes in both hips and pubic symphysis (see below). At this time, Kylah notices any movement of the leg toward the side and single leg stance on the right is painful. Hip flexion is painful. Back pain now comes and goes and she does not notice any particular pattern. She notes that she does have significant left knee OA and she takes voltaren for relief. Pt does express some concern for her balance. She denies falls but notices that she has trouble walking a straight line. Prior Treatments and Tests 06/14/22 MRI R femur: 1. Low- grade muscle strains of the proximal adductor musculature adjacent to the pubic bone. 2. Degenerative changes in the bilateral hips and pubic symphysis. 3. Mild proximal right hamstring tendinosis. 06/14/22 MRI R hip: 1. Muscular edema within the right adductor brevis and longus muscles adjacent to the pubic symphysis as well as the obturator externus muscle and the proximal right gluteus minimus muscle is consistent with low-grade muscle strains. 2. Moderate right hip osteoarthrosis with grade 2-3 chondromalacia, subchondral cystic changes and edema, and marginal osteophyte formation. Diffuse labral degeneration. 3. Degenerative changes also seen in the pubic symphysis, left hip, bilateral sacroiliac joints, and lumbar spine.4. Mild proximal hamstring tendinosis. PT-OP-C Subjective Start: 09/19/22 15:17 Freq: Status: Active Protocol: Document 10/19/22 09:15 TH (Rec: 10/19/22 12:37 TH [id number]) OP-PT Subjective Patient Comments Patient Comments Pt reports hip pain has improved since the start of PT though symptoms are still noticable with certain movements ( hip abduction/ extension). Patient Reported Progress Improving PT-OP-D Balance Start: 09/19/22 15:17 Freq: Status: Active Protocol: Document 09/22/22 09:45 AW (Rec: 09/22/22 10:13 AW [id number]) Balance Tests Single Limb Standing Single Limb- Right <10 sec with excess shear Single Limb- Left 15-20 sec - reports L knee pain PT-OP-F Manual Assessment Start: 09/19/22 15:17 Freq: Status: Active Protocol: Document 09/22/22 09:45 AW (Rec: 09/22/22 10:13 AW [id number]) Manual Assessments Soft Tissue Assessment Soft Tissue Mobility Assessment Tender to palpation with moderate pressure at right proximal adductors and pubic symphysis. Tender to palpation at distal right iliopsoas. Pt reports pain with pressure just posterior to right greater trochanter. Tightness noted along bilateral TFL/ITB. PT-OP-G Mobility & Gait Start: 09/19/22 15:17 Freq: Status: Active Protocol: Document 09/22/22 09:45 AW (Rec: 09/22/22 10:13 AW [id number]) OP Mobility Evaluation Bed Mobility Supine to and from Sit Difficult to lift right leg onto treatment table. Transfers Sit to Stand Able without UE support from standard height chair. Functional Movements Squats Pt states unable due to chronic left knee pain OP Gait Assessment Comments Gait Comments Gait is notable to WBOS with slight genu valgus bilaterally . Pt walks with trunk forward/ flexed at hips with limited hip extension. She has fair heelstrike at initial contact but poor pushoff bilaterally. Path deviation is noted with no obvious directional preference. PT-OP-H Neuro Start: 09/19/22 15:17 Freq: Status: Active Protocol: Document 09/22/22 09:45 AW (Rec: 09/22/22 10:21 AW [id number]) Sensation Evaluation Gross Sensation Gross Sensation WNL PT-OP-J Posture/Palpation/Skin Start: 09/19/22 15:17 Freq: Status: Active Protocol: Document 09/22/22 09:45 AW (Rec: 09/22/22 10:21 AW [id number]) Posture Evaluation Comments Posture Comments Pt stands with weight shifted toward left, slight genu valgus bilaterally. Arches are high bilaterally. PT-OP-K Range of Motion Start: 09/19/22 15:17 Freq: Status: Active Protocol: Document 09/22/22 09:45 AW (Rec: 09/22/22 10:21 AW [id number]) Hip Goniometric Range of Motion Hip right Abduction 40 Comments End-range hip flexion is painful. Pt avoids hip extension due to pain. IR:ER ration is <1:2 with pain reported at both end ranges. Functionally, pt has difficulty initiating SLR. Passively, there is no hamstring restriction noted on either side in passive SLR. left Hip ROM WFL Yes Abduction 50 Comments All ROM WLF except extension. Pt poorly tolerates position for assessment but extension is certainly lacking in gait. IR:ER ration ~1:3 Hip ROM Limitations Hip ROM Limitations Pain PT-OP-M Strength Start: 09/19/22 15:17 Freq: Status: Active Protocol: Document 09/22/22 09:45 AW (Rec: 09/22/22 10:27 AW [id number]) Hip Strength Hip Manual Muscle Testing Right Flexion (L2) 4- Good- Extension (S1) 3 Fair Abduction 4- Good- Adduction 4- Good- External Rotation 4 Good Internal Rotation 4 Good Left Flexion (L2) 4+ Good+ Extension (S1) 3 Fair Abduction 4+ Good+ Adduction 4+ Good+ External Rotation 4+ Good+ Internal Rotation 4+ Good+ Knee Strength Knee Manual Muscle Testing bilateral Flexion (S2) 4+ Good+ Extension (L3) 5 Normal Ankle/Foot Strength Ankle and Foot Manual Muscle Testing bilateral Dorsiflexion (L4) 5 Normal Plantarflexion (S1) 4 Good Toe Strength Toe Manual Muscle Testing Great Toe Extension 4 Good PT-OP-Q Treatments Start: 09/19/22 15:17 Freq: Status: Active Protocol: Document 10/19/22 09:15 TH (Rec: 10/19/22 12:37 TH [id number]) Therapeutic Exercises Supine Exercises hip hike Comments 1 x 10 ( 5 each side) hole 5 sec hip flexor stretch Side right Comments Pt unable to tolerate right leg in dep. position improved post manual Manual Therapy Treatment Manual Techniques Long axis traction right Comments Noted improved ant rot right hip post manual hip flexor stretc Comments With massage roller to quads Iliopsoas release right Comments right PT-OP-T Assessment and Plan Start: 09/19/22 15:17 Freq: Status: Active Protocol: Document 10/19/22 09:15 TH (Rec: 10/19/22 12:37 TH [id number]) Physical Therapy Assessment Goals Four Impairment balance Short Term Goal (STG) Pt will score 19/24 or greater on Dynamic Gait Index. STG Duration 10/29/22 [facility] Goal (LTG) Pt will improve single leg stance to >20 seconds bilaterally without excess shear. LTG Duration 12/21/22 Three Impairment gait Short Term Goal (STG) Pt will walk 30 minutes on level surface without increase in baseline pain. STG Duration 10/29/22 [employer] Goal (LTG) Pt will [place] [address] without increase in baseline pain. LTG Duration 12/21/22 Two Impairment pain Short Term Goal (STG) Kylah will report average numeric pain rating in her right groin/hip of 4/10 or less over a one-week period. STG Duration 10/29/22 [employer] Goal (LTG) Kylah will improve hip flexion MMT to 4+/5 or greater for greater ease with bed mobility, car transfers, and stepping over obstacles. LTG Duration 12/21/22 One Impairment lacks HEP Short Term Goal (STG) Kylah will be instructed in HEP to improve right hip range of motion and strength to support therapy services provided in clinic. STG Duration 10/29/22 [employer] Goal (LTG) Kylah will be independent with HEP to improve BLE strength and to manage her symptoms long-term. LTG Duration 12/21/22 Assessment Summary Assessment Pt is making gradual progress as demonstrated by decreased symptoms. Noted right hip ant rot. This improved with manual . Physical Therapy Plan Frequency and Duration Frequency of Treatment 2x/Week Plan of Care Start Date 09/22/22 Plan of Care End Date 12/21/22 Therapeutic Interventions Therapeutic Interventions Balance Training,Gait Training ,Home Exercise Program,Manual Therapy,Neuromuscular Re- education,Self-Care/Home Management,Soft Tissue Mobilization,Taping, Therapeutic Activities, Therapeutic Exercises Modalities Cold Pack/Ice Massage,Hot Packs Next Visit Focus/Plan Next Note Type Treatment Note Next Visit Plan manual/hip abd fac eccentric adductor. POC: STM adductors and hip flexors. Assess bridge.
--- NOTE | 2022-10-21 10:31 | PT.OTN ---
Current Diagnoses Pain in right leg (10/21/22) Difficulty in walking, not elsewhere classified (10/21/22) Physical Therapy Treatment Note PT-OP-A Visit Information Start: 09/19/22 15:17 Freq: Status: Active Protocol: Document 10/21/22 09:41 TH (Rec: 10/21/22 10:31 TH [id number]) Out-Patient Physical Therapy Visit Information Visit Information Visit Type Treatment Note Visit Start Time 09:45 Visit Stop Time 10:30 Total Visit Minutes 45 Visit Number 7 Number of [employer] Visits 0 PT-OP-B Current Condition Start: 09/19/22 15:17 Freq: Status: Active Protocol: Document 10/13/22 10:33 SAK (Rec: 10/13/22 11:21 SAK [id number]) Current Condition History of Current Condition Onset Date May 2022 Current Complaints sudden onset R groin and hip pain History of Current Condition Kylah woke up with sudden onset sharp pain in her right groin on 06/07/22. She also had some right sided low back pain and lateral hip pain. She went to the [facility] who sent her to ED. X-ray was negative for fracture. She was sent home with hydrocodone. She took some but did not all. She was diagnosed with rheumatoid arthritis in April. Due to taking methotrexate, she is cautious about taking other medications. She isn't sure whether or not methotrexate has made any difference but it has not been four months yet and her drug enforcement agent suggested it could take at least four months to notice changes. Pt saw her PCP a week later with no change in pain symptoms and physician ordered MRI. MRI showed adductor strains and degenerative changes in both hips and pubic symphysis (see below). At this time, Kylah notices any movement of the leg toward the side and single leg stance on the right is painful. Hip flexion is painful. Back pain now comes and goes and she does not notice any particular pattern. She notes that she does have significant left knee OA and she takes voltaren for relief. Pt does express some concern for her balance. She denies falls but notices that she has trouble walking a straight line. Prior Treatments and Tests 06/14/22 MRI R femur: 1. Low- grade muscle strains of the proximal adductor musculature adjacent to the pubic bone. 2. Degenerative changes in the bilateral hips and pubic symphysis. 3. Mild proximal right hamstring tendinosis. 06/14/22 MRI R hip: 1. Muscular edema within the right adductor brevis and longus muscles adjacent to the pubic symphysis as well as the obturator externus muscle and the proximal right gluteus minimus muscle is consistent with low-grade muscle strains. 2. Moderate right hip osteoarthrosis with grade 2-3 chondromalacia, subchondral cystic changes and edema, and marginal osteophyte formation. Diffuse labral degeneration. 3. Degenerative changes also seen in the pubic symphysis, left hip, bilateral sacroiliac joints, and lumbar spine.4. Mild proximal hamstring tendinosis. PT-OP-C Subjective Start: 09/19/22 15:17 Freq: Status: Active Protocol: Document 10/21/22 09:41 TH (Rec: 10/21/22 10:31 TH [id number]) OP-PT Subjective Patient Comments Patient Comments Groin Pain improving pt currently feeling deep pain in hip joint. Patient Reported Progress Improving PT-OP-D Balance Start: 09/19/22 15:17 Freq: Status: Active Protocol: Document 09/22/22 09:45 AW (Rec: 09/22/22 10:13 AW [id number]) Balance Tests Single Limb Standing Single Limb- Right <10 sec with excess shear Single Limb- Left 15-20 sec - reports L knee pain PT-OP-F Manual Assessment Start: 09/19/22 15:17 Freq: Status: Active Protocol: Document 09/22/22 09:45 AW (Rec: 09/22/22 10:13 AW [id number]) Manual Assessments Soft Tissue Assessment Soft Tissue Mobility Assessment Tender to palpation with moderate pressure at right proximal adductors and pubic symphysis. Tender to palpation at distal right iliopsoas. Pt reports pain with pressure just posterior to right greater trochanter. Tightness noted along bilateral TFL/ITB. PT-OP-G Mobility & Gait Start: 09/19/22 15:17 Freq: Status: Active Protocol: Document 09/22/22 09:45 AW (Rec: 09/22/22 10:13 AW [id number]) OP Mobility Evaluation Bed Mobility Supine to and from Sit Difficult to lift right leg onto treatment table. Transfers Sit to Stand Able without UE support from standard height chair. Functional Movements Squats Pt states unable due to chronic left knee pain OP Gait Assessment Comments Gait Comments Gait is notable to WBOS with slight genu valgus bilaterally . Pt walks with trunk forward/ flexed at hips with limited hip extension. She has fair heelstrike at initial contact but poor pushoff bilaterally. Path deviation is noted with no obvious directional preference. PT-OP-H Neuro Start: 09/19/22 15:17 Freq: Status: Active Protocol: Document 09/22/22 09:45 AW (Rec: 09/22/22 10:21 AW [id number]) Sensation Evaluation Gross Sensation Gross Sensation WNL PT-OP-J Posture/Palpation/Skin Start: 09/19/22 15:17 Freq: Status: Active Protocol: Document 09/22/22 09:45 AW (Rec: 09/22/22 10:21 AW [id number]) Posture Evaluation Comments Posture Comments Pt stands with weight shifted toward left, slight genu valgus bilaterally. Arches are high bilaterally. PT-OP-K Range of Motion Start: 09/19/22 15:17 Freq: Status: Active Protocol: Document 09/22/22 09:45 AW (Rec: 09/22/22 10:21 AW [id number]) Hip Goniometric Range of Motion Hip right Abduction 40 Comments End-range hip flexion is painful. Pt avoids hip extension due to pain. IR:ER ration is <1:2 with pain reported at both end ranges. Functionally, pt has difficulty initiating SLR. Passively, there is no hamstring restriction noted on either side in passive SLR. left Hip ROM WFL Yes Abduction 50 Comments All ROM WLF except extension. Pt poorly tolerates position for assessment but extension is certainly lacking in gait. IR:ER ration ~1:3 Hip ROM Limitations Hip ROM Limitations Pain PT-OP-M Strength Start: 09/19/22 15:17 Freq: Status: Active Protocol: Document 09/22/22 09:45 AW (Rec: 09/22/22 10:27 AW [id number]) Hip Strength Hip Manual Muscle Testing Right Flexion (L2) 4- Good- Extension (S1) 3 Fair Abduction 4- Good- Adduction 4- Good- External Rotation 4 Good Internal Rotation 4 Good Left Flexion (L2) 4+ Good+ Extension (S1) 3 Fair Abduction 4+ Good+ Adduction 4+ Good+ External Rotation 4+ Good+ Internal Rotation 4+ Good+ Knee Strength Knee Manual Muscle Testing bilateral Flexion (S2) 4+ Good+ Extension (L3) 5 Normal Ankle/Foot Strength Ankle and Foot Manual Muscle Testing bilateral Dorsiflexion (L4) 5 Normal Plantarflexion (S1) 4 Good Toe Strength Toe Manual Muscle Testing Great Toe Extension 4 Good PT-OP-Q Treatments Start: 09/19/22 15:17 Freq: Status: Active Protocol: Document 10/21/22 09:41 TH (Rec: 10/21/22 10:31 TH [id number]) Therapeutic Exercises Supine Exercises isometric hip abduction Comments light blue band / 2 x 10 bilat . Manual Therapy Treatment Manual Techniques massage roller to right groin mm Comments supine with right LE frogged legged/ pillow prop contract release right groin mm Comments 10 sec with moderate resistance holds x 3 Long axis traction right Comments Noted leg length and ant. rot right hip resolved post maual today. Iliopsoas release right Comments right PT-OP-T Assessment and Plan Start: 09/19/22 15:17 Freq: Status: Active Protocol: Document 10/21/22 09:41 TH (Rec: 10/21/22 10:31 TH [id number]) Physical Therapy Assessment Goals Four Impairment balance Short Term Goal (STG) Pt will score 19/24 or greater on Dynamic Gait Index. STG Duration 10/29/22 [employer] Goal (LTG) Pt will improve single leg stance to >20 seconds bilaterally without excess shear. LTG Duration 12/21/22 Three Impairment gait Short Term Goal (STG) Pt will walk 30 minutes on level surface without increase in baseline pain. STG Duration 10/29/22 Residential Goal (LTG) Pt will [place] [address] without increase in baseline pain. LTG Duration 12/21/22 Two Impairment pain Short Term Goal (STG) Kylah will report average numeric pain rating in her right groin/hip of 4/10 or less over a one-week period. STG Duration 10/29/22 Residential Goal (LTG) Kylah will improve hip flexion MMT to 4+/5 or greater for greater ease with bed mobility, car transfers, and stepping over obstacles. LTG Duration 12/21/22 One Impairment lacks HEP Short Term Goal (STG) Kylah will be instructed in HEP to improve right hip range of motion and strength to support therapy services provided in clinic. STG Duration 10/29/22 [employer] Service Con[employer] Goal (LTG) Kylah will be independent with HEP to improve BLE strength and to manage her symptoms long-term. LTG Duration 12/21/22 Physical Therapy Plan Frequency and Duration Frequency of Treatment 2x/Week Plan of Care Start Date 09/22/22 Plan of Care End Date 12/21/22 Therapeutic Interventions Therapeutic Interventions Balance Training,Gait Training ,Home Exercise Program,Manual Therapy,Neuromuscular Re- education,Self-Care/Home Management,Soft Tissue Mobilization,Taping, Therapeutic Activities, Therapeutic Exercises Modalities Cold Pack/Ice Massage,Hot Packs Next Visit Focus/Plan Next Note Type Treatment Note Next Visit Plan manual/hip abd fac eccentric adductor. POC: STM adductors and hip flexors. Assess bridge.
--- NOTE | 2022-10-27 11:19 | PT.OTN ---
Current Diagnoses Pain in right leg (10/27/22) Difficulty in walking, not elsewhere classified (10/27/22) Physical Therapy Treatment Note PT-OP-A Visit Information Start: 09/19/22 15:17 Freq: Status: Active Protocol: Document 10/27/22 10:36 TH (Rec: 10/27/22 11:19 TH [id number]) Out-Patient Physical Therapy Visit Information Visit Information Visit Type Treatment Note Visit Start Time 10:35 Visit Stop Time 11:15 Total Visit Minutes 40 Visit Number 8 Number of [employer] Visits 0 PT-OP-B Current Condition Start: 09/19/22 15:17 Freq: Status: Active Protocol: Document 10/13/22 10:33 SAK (Rec: 10/13/22 11:21 SAK [id number]) Current Condition History of Current Condition Onset Date May 2022 Current Complaints sudden onset R groin and hip pain History of Current Condition Kylah woke up with sudden onset sharp pain in her right groin on 06/07/22. She also had some right sided low back pain and lateral hip pain. She went to the [facility] who sent her to ED. X-ray was negative for fracture. She was sent home with hydrocodone. She took some but did not all. She was diagnosed with rheumatoid arthritis in April. Due to taking methotrexate, she is cautious about taking other medications. She isn't sure whether or not methotrexate has made any difference but it has not been four months yet and her school business manager suggested it could take at least four months to notice changes. Pt saw her PCP a week later with no change in pain symptoms and physician ordered MRI. MRI showed adductor strains and degenerative changes in both hips and pubic symphysis (see below). At this time, Kylah notices any movement of the leg toward the side and single leg stance on the right is painful. Hip flexion is painful. Back pain now comes and goes and she does not notice any particular pattern. She notes that she does have significant left knee OA and she takes voltaren for relief. Pt does express some concern for her balance. She denies falls but notices that she has trouble walking a straight line. Prior Treatments and Tests 06/14/22 MRI R femur: 1. Low- grade muscle strains of the proximal adductor musculature adjacent to the pubic bone. 2. Degenerative changes in the bilateral hips and pubic symphysis. 3. Mild proximal right hamstring tendinosis. 06/14/22 MRI R hip: 1. Muscular edema within the right adductor brevis and longus muscles adjacent to the pubic symphysis as well as the obturator externus muscle and the proximal right gluteus minimus muscle is consistent with low-grade muscle strains. 2. Moderate right hip osteoarthrosis with grade 2-3 chondromalacia, subchondral cystic changes and edema, and marginal osteophyte formation. Diffuse labral degeneration. 3. Degenerative changes also seen in the pubic symphysis, left hip, bilateral sacroiliac joints, and lumbar spine.4. Mild proximal hamstring tendinosis. PT-OP-C Subjective Start: 09/19/22 15:17 Freq: Status: Active Protocol: Document 10/27/22 10:36 TH (Rec: 10/27/22 11:19 TH [id number]) OP-PT Subjective Patient Comments Patient Comments Pt states that she has been consistent with HEP. Right groin pain /hip flexor pain intensity and frequency has improved. Getting in and out of car is still bothersome but not as bad as it had been. Patient Reported Progress Improving PT-OP-D Balance Start: 09/19/22 15:17 Freq: Status: Active Protocol: Document 09/22/22 09:45 AW (Rec: 09/22/22 10:13 AW [id number]) Balance Tests Single Limb Standing Single Limb- Right <10 sec with excess shear Single Limb- Left 15-20 sec - reports L knee pain PT-OP-F Manual Assessment Start: 09/19/22 15:17 Freq: Status: Active Protocol: Document 09/22/22 09:45 AW (Rec: 09/22/22 10:13 AW [id number]) Manual Assessments Soft Tissue Assessment Soft Tissue Mobility Assessment Tender to palpation with moderate pressure at right proximal adductors and pubic symphysis. Tender to palpation at distal right iliopsoas. Pt reports pain with pressure just posterior to right greater trochanter. Tightness noted along bilateral TFL/ITB. PT-OP-G Mobility & Gait Start: 09/19/22 15:17 Freq: Status: Active Protocol: Document 09/22/22 09:45 AW (Rec: 09/22/22 10:13 AW [id number]) OP Mobility Evaluation Bed Mobility Supine to and from Sit Difficult to lift right leg onto treatment table. Transfers Sit to Stand Able without UE support from standard height chair. Functional Movements Squats Pt states unable due to chronic left knee pain OP Gait Assessment Comments Gait Comments Gait is notable to WBOS with slight genu valgus bilaterally . Pt walks with trunk forward/ flexed at hips with limited hip extension. She has fair heelstrike at initial contact but poor pushoff bilaterally. Path deviation is noted with no obvious directional preference. PT-OP-H Neuro Start: 09/19/22 15:17 Freq: Status: Active Protocol: Document 09/22/22 09:45 AW (Rec: 09/22/22 10:21 AW [id number]) Sensation Evaluation Gross Sensation Gross Sensation WNL PT-OP-J Posture/Palpation/Skin Start: 09/19/22 15:17 Freq: Status: Active Protocol: Document 09/22/22 09:45 AW (Rec: 09/22/22 10:21 AW [id number]) Posture Evaluation Comments Posture Comments Pt stands with weight shifted toward left, slight genu valgus bilaterally. Arches are high bilaterally. PT-OP-K Range of Motion Start: 09/19/22 15:17 Freq: Status: Active Protocol: Document 09/22/22 09:45 AW (Rec: 09/22/22 10:21 AW [id number]) Hip Goniometric Range of Motion Hip right Abduction 40 Comments End-range hip flexion is painful. Pt avoids hip extension due to pain. IR:ER ration is <1:2 with pain reported at both end ranges. Functionally, pt has difficulty initiating SLR. Passively, there is no hamstring restriction noted on either side in passive SLR. left Hip ROM WFL Yes Abduction 50 Comments All ROM WLF except extension. Pt poorly tolerates position for assessment but extension is certainly lacking in gait. IR:ER ration ~1:3 Hip ROM Limitations Hip ROM Limitations Pain PT-OP-M Strength Start: 09/19/22 15:17 Freq: Status: Active Protocol: Document 09/22/22 09:45 AW (Rec: 09/22/22 10:27 AW [id number]) Hip Strength Hip Manual Muscle Testing Right Flexion (L2) 4- Good- Extension (S1) 3 Fair Abduction 4- Good- Adduction 4- Good- External Rotation 4 Good Internal Rotation 4 Good Left Flexion (L2) 4+ Good+ Extension (S1) 3 Fair Abduction 4+ Good+ Adduction 4+ Good+ External Rotation 4+ Good+ Internal Rotation 4+ Good+ Knee Strength Knee Manual Muscle Testing bilateral Flexion (S2) 4+ Good+ Extension (L3) 5 Normal Ankle/Foot Strength Ankle and Foot Manual Muscle Testing bilateral Dorsiflexion (L4) 5 Normal Plantarflexion (S1) 4 Good Toe Strength Toe Manual Muscle Testing Great Toe Extension 4 Good PT-OP-Q Treatments Start: 09/19/22 15:17 Freq: Status: Active Protocol: Document 10/27/22 10:36 TH (Rec: 10/27/22 11:19 TH [id number]) Therapeutic Exercises Supine Exercises hip hike Comments 1 x 10 Other Exercises slr Comments 1 x 10 anatomical posture Comments against the wall 1 x 5 10 sec hold bridges Comments 1 x 10 Manual Therapy Treatment Manual Techniques hip flexor stretc Comments with massage roller to quads Self-Care/Home Management Treatment Education Patient Education Home Exercise Program Other Education Access Code: [email or web address] URL: [email or web address] Date: 10/27/2022 Prepared by: Catie Yoder Exercises Supine Hip Hike - 1 x daily - 7 x weekly - 1 sets - 10 reps - 5 sec hold Supine Bridge - 1 x daily - 7 x weekly - 3 sets - 10 reps Standing Anatomical Position with Scapular Retraction and Depression at Wall - 1 x daily - 7 x weekly - 1 sets - 5 reps Supine Active Straight Leg Raise - 1 x daily - 7 x weekly - 3 sets - 10 reps PT-OP-T Assessment and Plan Start: 09/19/22 15:17 Freq: Status: Active Protocol: Document 10/27/22 10:36 TH (Rec: 10/27/22 11:19 TH [id number]) Physical Therapy Assessment Goals Four Impairment balance Short Term Goal (STG) Pt will score 19/24 or greater on Dynamic Gait Index. STG Duration 10/29/22 Skilled Nursing Goal (LTG) Pt will improve single leg stance to >20 seconds bilaterally without excess shear. LTG Duration 12/21/22 Three Impairment gait Short Term Goal (STG) Pt will walk 30 minutes on level surface without increase in baseline pain. STG Duration 10/29/22 Medical Coder Goal (LTG) Pt will walk 30 minutes on [employer] without increase in baseline pain. LTG Duration 12/21/22 Two Impairment pain Short Term Goal (STG) Kylah will report average numeric pain rating in her right groin/hip of 4/10 or less over a one-week period. STG Duration 10/29/22 Medical Coder Goal (LTG) Kylah will improve hip flexion MMT to 4+/5 or greater for greater ease with bed mobility, car transfers, and stepping over obstacles. LTG Duration 12/21/22 One Impairment lacks HEP Short Term Goal (STG) Kylah will be instructed in HEP to improve right hip range of motion and strength to support therapy services provided in clinic. STG Duration 10/29/22 Skilled Nursing Goal (LTG) Kylah will be independent with HEP to improve BLE strength and to manage her symptoms long-term. LTG Duration 12/21/22 Assessment Summary Assessment Pt making steady progress as demonstrated by decreased symptoms and improved mobility . Physical Therapy Plan Frequency and Duration Frequency of Treatment 2x/Week Plan of Care Start Date 09/22/22 Plan of Care End Date 12/21/22 Therapeutic Interventions Therapeutic Interventions Balance Training,Gait Training ,Home Exercise Program,Manual Therapy,Neuromuscular Re- education,Self-Care/Home Management,Soft Tissue Mobilization,Taping, Therapeutic Activities, Therapeutic Exercises Modalities Cold Pack/Ice Massage,Hot Packs Next Visit Focus/Plan Next Visit Plan Postural ex. Gluteus strengtheing ex.
--- NOTE | 2022-11-02 12:15 | PT.OTN ---
Current Diagnoses Pain in right leg (11/04/22) Difficulty in walking, not elsewhere classified (11/04/22) Physical Therapy Treatment Note PT-OP-A Visit Information Start: 09/19/22 15:17 Freq: Status: Active Protocol: Document 11/04/22 10:35 TH (Rec: 11/04/22 11:40 TH [id number]) Out-Patient Physical Therapy Visit Information Visit Information Visit Type Treatment Note Visit Start Time 10:30 Visit Stop Time 11:20 Total Visit Minutes 50 Visit Number 10 Number of FLIGHT PHYSICIAN Visits 0 PT-OP-B Current Condition Start: 09/19/22 15:17 Freq: Status: Active Protocol: Document 10/13/22 10:33 SAK (Rec: 10/13/22 11:21 SAK [id number]) Current Condition History of Current Condition Onset Date May 2022 Current Complaints sudden onset R groin and hip pain History of Current Condition Kylah woke up with sudden onset sharp pain in her right groin on 06/07/22. She also had some right sided low back pain and lateral hip pain. She went to the [facility] who sent her to ED. X-ray was negative for fracture. She was sent home with hydrocodone. She took some but did not all. She was diagnosed with rheumatoid arthritis in April. Due to taking methotrexate, she is cautious about taking other medications. She isn't sure whether or not methotrexate has made any difference but it has not been four months yet and her manager strategic sourcing suggested it could take at least four months to notice changes. Pt saw her PCP a week later with no change in pain symptoms and physician ordered MRI. MRI showed adductor strains and degenerative changes in both hips and pubic symphysis (see below). At this time, Kylah notices any movement of the leg toward the side and single leg stance on the right is painful. Hip flexion is painful. Back pain now comes and goes and she does not notice any particular pattern. She notes that she does have significant left knee OA and she takes voltaren for relief. Pt does express some concern for her balance. She denies falls but notices that she has trouble walking a straight line. Prior Treatments and Tests 06/14/22 MRI R femur: 1. Low- grade muscle strains of the proximal adductor musculature adjacent to the pubic bone. 2. Degenerative changes in the bilateral hips and pubic symphysis. 3. Mild proximal right hamstring tendinosis. 06/14/22 MRI R hip: 1. Muscular edema within the right adductor brevis and longus muscles adjacent to the pubic symphysis as well as the obturator externus muscle and the proximal right gluteus minimus muscle is consistent with low-grade muscle strains. 2. Moderate right hip osteoarthrosis with grade 2-3 chondromalacia, subchondral cystic changes and edema, and marginal osteophyte formation. Diffuse labral degeneration. 3. Degenerative changes also seen in the pubic symphysis, left hip, bilateral sacroiliac joints, and lumbar spine.4. Mild proximal hamstring tendinosis. PT-OP-C Subjective Start: 09/19/22 15:17 Freq: Status: Active Protocol: Document 11/02/22 09:23 TH (Rec: 11/02/22 12:15 TH [id number]) OP-PT Subjective Patient Comments Patient Comments Pt states that she had been feeling really good for a few days and started back to chores etc. After vaccumming pt felt symptoms came back but not as intense. PT-OP-D Balance Start: 09/19/22 15:17 Freq: Status: Active Protocol: Document 09/22/22 09:45 AW (Rec: 09/22/22 10:13 AW [id number]) Balance Tests Single Limb Standing Single Limb- Right <10 sec with excess shear Single Limb- Left 15-20 sec - reports L knee pain PT-OP-F Manual Assessment Start: 09/19/22 15:17 Freq: Status: Active Protocol: Document 09/22/22 09:45 AW (Rec: 09/22/22 10:13 AW [id number]) Manual Assessments Soft Tissue Assessment Soft Tissue Mobility Assessment Tender to palpation with moderate pressure at right proximal adductors and pubic symphysis. Tender to palpation at distal right iliopsoas. Pt reports pain with pressure just posterior to right greater trochanter. Tightness noted along bilateral TFL/ITB. PT-OP-G Mobility & Gait Start: 09/19/22 15:17 Freq: Status: Active Protocol: Document 09/22/22 09:45 AW (Rec: 09/22/22 10:13 AW [id number]) OP Mobility Evaluation Bed Mobility Supine to and from Sit Difficult to lift right leg onto treatment table. Transfers Sit to Stand Able without UE support from standard height chair. Functional Movements Squats Pt states unable due to chronic left knee pain OP Gait Assessment Comments Gait Comments Gait is notable to WBOS with slight genu valgus bilaterally . Pt walks with trunk forward/ flexed at hips with limited hip extension. She has fair heelstrike at initial contact but poor pushoff bilaterally. Path deviation is noted with no obvious directional preference. PT-OP-H Neuro Start: 09/19/22 15:17 Freq: Status: Active Protocol: Document 09/22/22 09:45 AW (Rec: 09/22/22 10:21 AW [id number]) Sensation Evaluation Gross Sensation Gross Sensation WNL PT-OP-J Posture/Palpation/Skin Start: 09/19/22 15:17 Freq: Status: Active Protocol: Document 09/22/22 09:45 AW (Rec: 09/22/22 10:21 AW [id number]) Posture Evaluation Comments Posture Comments Pt stands with weight shifted toward left, slight genu valgus bilaterally. Arches are high bilaterally. PT-OP-K Range of Motion Start: 09/19/22 15:17 Freq: Status: Active Protocol: Document 09/22/22 09:45 AW (Rec: 09/22/22 10:21 AW [id number]) Hip Goniometric Range of Motion Hip right Abduction 40 Comments End-range hip flexion is painful. Pt avoids hip extension due to pain. IR:ER ration is <1:2 with pain reported at both end ranges. Functionally, pt has difficulty initiating SLR. Passively, there is no hamstring restriction noted on either side in passive SLR. left Hip ROM WFL Yes Abduction 50 Comments All ROM WLF except extension. Pt poorly tolerates position for assessment but extension is certainly lacking in gait. IR:ER ration ~1:3 Hip ROM Limitations Hip ROM Limitations Pain PT-OP-M Strength Start: 09/19/22 15:17 Freq: Status: Active Protocol: Document 09/22/22 09:45 AW (Rec: 09/22/22 10:27 AW [id number]) Hip Strength Hip Manual Muscle Testing Right Flexion (L2) 4- Good- Extension (S1) 3 Fair Abduction 4- Good- Adduction 4- Good- External Rotation 4 Good Internal Rotation 4 Good Left Flexion (L2) 4+ Good+ Extension (S1) 3 Fair Abduction 4+ Good+ Adduction 4+ Good+ External Rotation 4+ Good+ Internal Rotation 4+ Good+ Knee Strength Knee Manual Muscle Testing bilateral Flexion (S2) 4+ Good+ Extension (L3) 5 Normal Ankle/Foot Strength Ankle and Foot Manual Muscle Testing bilateral Dorsiflexion (L4) 5 Normal Plantarflexion (S1) 4 Good Toe Strength Toe Manual Muscle Testing Great Toe Extension 4 Good PT-OP-Q Treatments Start: 09/19/22 15:17 Freq: Status: Active Protocol: Document 11/04/22 10:35 TH (Rec: 11/04/22 11:40 TH [id number]) Therapeutic Exercises Supine Exercises isometric hip abduction Side bilateral Comments 2 x 10 ( light blue) withfocus on gluteis medius/pelvic floor activation adductor squeeze Comments 1 x 10 5 sec hold Standing Exercises hip abd, ext Side bilateral Comments 1 x10 each bilaterally Other Exercises knee extension in sitting Side bilateral Comments 1 x 10 blue band Manual Therapy Treatment Manual Techniques hip flexor stretc Comments with massage roller to quads ( right) PT-OP-T Assessment and Plan Start: 09/19/22 15:17 Freq: Status: Active Protocol: Document 11/04/22 10:35 TH (Rec: 11/04/22 11:40 TH [id number]) Physical Therapy Assessment Goals Four Impairment balance Short Term Goal (STG) Pt will score 19/24 or greater on Dynamic Gait Index. STG Duration 10/29/22 Glass Forming Engineer Goal (LTG) Pt will improve single leg stance to >20 seconds bilaterally without excess shear. LTG Duration 12/21/22 Three Impairment gait Short Term Goal (STG) Pt will walk 30 minutes on level surface without increase in baseline pain. STG Duration 10/29/22 Penitentiary Goal (LTG) Pt [place] [address] [place] increase in baseline pain. LTG Duration 12/21/22 Two Impairment pain Short Term Goal (STG) Kylah will report average numeric pain rating in her right groin/hip of 4/10 or less over a one-week period. STG Duration 10/29/22 Glass Forming Engineer Goal (LTG) Kylah will improve hip flexion MMT to 4+/5 or greater for greater ease with bed mobility, car transfers, and stepping over obstacles. LTG Duration 12/21/22 One Impairment lacks HEP Short Term Goal (STG) Kylah will be instructed in HEP to improve right hip range of motion and strength to support therapy services provided in clinic. STG Duration 10/29/22 Glass Forming Engineer Goal (LTG) Kylah will be independent with HEP to improve BLE strength and to manage her symptoms long-term. LTG Duration 12/21/22 Assessment Summary Assessment Pt is making steady progress, She was able to perform yardwork ( racking) by switching sides from time to time and without having much increase in symptoms. HIps have leveled out and pt is able to maintain this with her HEP at home. Focus is now on strengthening core/hip muscles. Noted significant difference in muscle mass RLE compared to LLE. Physical Therapy Plan Frequency and Duration Frequency of Treatment 2x/Week Plan of Care Start Date 09/22/22 Plan of Care End Date 12/21/22 Therapeutic Interventions Therapeutic Interventions Balance Training,Gait Training ,Home Exercise Program,Manual Therapy,Neuromuscular Re- education,Self-Care/Home Management,Soft Tissue Mobilization,Taping, Therapeutic Activities, Therapeutic Exercises Modalities Cold Pack/Ice Massage,Hot Packs Next Visit Focus/Plan Next Visit Plan Progressive strength training Balance obstacle course to improve/hip strategies
--- NOTE | 2022-11-02 12:15 | PT.OTN ---
Current Diagnoses Pain in right leg (11/02/22) Difficulty in walking, not elsewhere classified (11/02/22) Physical Therapy Treatment Note PT-OP-A Visit Information Start: 09/19/22 15:17 Freq: Status: Active Protocol: Document 11/02/22 09:23 TH (Rec: 11/02/22 12:15 TH [id number]) Out-Patient Physical Therapy Visit Information Visit Information Visit Type Treatment Note Visit Start Time 10:30 Visit Stop Time 11:15 Total Visit Minutes 45 Visit Number 9 Number of SINKER PULLER Visits 0 PT-OP-B Current Condition Start: 09/19/22 15:17 Freq: Status: Active Protocol: Document 10/13/22 10:33 SAK (Rec: 10/13/22 11:21 SAK [id number]) Current Condition History of Current Condition Onset Date May 2022 Current Complaints sudden onset R groin and hip pain History of Current Condition Kylah woke up with sudden onset sharp pain in her right groin on 06/07/22. She also had some right sided low back pain and lateral hip pain. She went to the [facility] who sent her to ED. X-ray was negative for fracture. She was sent home with hydrocodone. She took some but did not all. She was diagnosed with rheumatoid arthritis in April. Due to taking methotrexate, she is cautious about taking other medications. She isn't sure whether or not methotrexate has made any difference but it has not been four months yet and her sas developer analyst suggested it could take at least four months to notice changes. Pt saw her PCP a week later with no change in pain symptoms and physician ordered MRI. MRI showed adductor strains and degenerative changes in both hips and pubic symphysis (see below). At this time, Kylah notices any movement of the leg toward the side and single leg stance on the right is painful. Hip flexion is painful. Back pain now comes and goes and she does not notice any particular pattern. She notes that she does have significant left knee OA and she takes voltaren for relief. Pt does express some concern for her balance. She denies falls but notices that she has trouble walking a straight line. Prior Treatments and Tests 06/14/22 MRI R femur: 1. Low- grade muscle strains of the proximal adductor musculature adjacent to the pubic bone. 2. Degenerative changes in the bilateral hips and pubic symphysis. 3. Mild proximal right hamstring tendinosis. 06/14/22 MRI R hip: 1. Muscular edema within the right adductor brevis and longus muscles adjacent to the pubic symphysis as well as the obturator externus muscle and the proximal right gluteus minimus muscle is consistent with low-grade muscle strains. 2. Moderate right hip osteoarthrosis with grade 2-3 chondromalacia, subchondral cystic changes and edema, and marginal osteophyte formation. Diffuse labral degeneration. 3. Degenerative changes also seen in the pubic symphysis, left hip, bilateral sacroiliac joints, and lumbar spine.4. Mild proximal hamstring tendinosis. PT-OP-C Subjective Start: 09/19/22 15:17 Freq: Status: Active Protocol: Document 11/02/22 09:23 TH (Rec: 11/02/22 12:15 TH [id number]) OP-PT Subjective Patient Comments Patient Comments Pt states that she had been feeling really good for a few days and started back to chores etc. After vaccumming pt felt symptoms came back but not as intense. PT-OP-D Balance Start: 09/19/22 15:17 Freq: Status: Active Protocol: Document 09/22/22 09:45 AW (Rec: 09/22/22 10:13 AW [id number]) Balance Tests Single Limb Standing Single Limb- Right <10 sec with excess shear Single Limb- Left 15-20 sec - reports L knee pain PT-OP-F Manual Assessment Start: 09/19/22 15:17 Freq: Status: Active Protocol: Document 09/22/22 09:45 AW (Rec: 09/22/22 10:13 AW [id number]) Manual Assessments Soft Tissue Assessment Soft Tissue Mobility Assessment Tender to palpation with moderate pressure at right proximal adductors and pubic symphysis. Tender to palpation at distal right iliopsoas. Pt reports pain with pressure just posterior to right greater trochanter. Tightness noted along bilateral TFL/ITB. PT-OP-G Mobility & Gait Start: 09/19/22 15:17 Freq: Status: Active Protocol: Document 09/22/22 09:45 AW (Rec: 09/22/22 10:13 AW [id number]) OP Mobility Evaluation Bed Mobility Supine to and from Sit Difficult to lift right leg onto treatment table. Transfers Sit to Stand Able without UE support from standard height chair. Functional Movements Squats Pt states unable due to chronic left knee pain OP Gait Assessment Comments Gait Comments Gait is notable to WBOS with slight genu valgus bilaterally . Pt walks with trunk forward/ flexed at hips with limited hip extension. She has fair heelstrike at initial contact but poor pushoff bilaterally. Path deviation is noted with no obvious directional preference. PT-OP-H Neuro Start: 09/19/22 15:17 Freq: Status: Active Protocol: Document 09/22/22 09:45 AW (Rec: 09/22/22 10:21 AW [id number]) Sensation Evaluation Gross Sensation Gross Sensation WNL PT-OP-J Posture/Palpation/Skin Start: 09/19/22 15:17 Freq: Status: Active Protocol: Document 09/22/22 09:45 AW (Rec: 09/22/22 10:21 AW [id number]) Posture Evaluation Comments Posture Comments Pt stands with weight shifted toward left, slight genu valgus bilaterally. Arches are high bilaterally. PT-OP-K Range of Motion Start: 09/19/22 15:17 Freq: Status: Active Protocol: Document 09/22/22 09:45 AW (Rec: 09/22/22 10:21 AW [id number]) Hip Goniometric Range of Motion Hip right Abduction 40 Comments End-range hip flexion is painful. Pt avoids hip extension due to pain. IR:ER ration is <1:2 with pain reported at both end ranges. Functionally, pt has difficulty initiating SLR. Passively, there is no hamstring restriction noted on either side in passive SLR. left Hip ROM WFL Yes Abduction 50 Comments All ROM WLF except extension. Pt poorly tolerates position for assessment but extension is certainly lacking in gait. IR:ER ration ~1:3 Hip ROM Limitations Hip ROM Limitations Pain PT-OP-M Strength Start: 09/19/22 15:17 Freq: Status: Active Protocol: Document 09/22/22 09:45 AW (Rec: 09/22/22 10:27 AW [id number]) Hip Strength Hip Manual Muscle Testing Right Flexion (L2) 4- Good- Extension (S1) 3 Fair Abduction 4- Good- Adduction 4- Good- External Rotation 4 Good Internal Rotation 4 Good Left Flexion (L2) 4+ Good+ Extension (S1) 3 Fair Abduction 4+ Good+ Adduction 4+ Good+ External Rotation 4+ Good+ Internal Rotation 4+ Good+ Knee Strength Knee Manual Muscle Testing bilateral Flexion (S2) 4+ Good+ Extension (L3) 5 Normal Ankle/Foot Strength Ankle and Foot Manual Muscle Testing bilateral Dorsiflexion (L4) 5 Normal Plantarflexion (S1) 4 Good Toe Strength Toe Manual Muscle Testing Great Toe Extension 4 Good PT-OP-Q Treatments Start: 09/19/22 15:17 Freq: Status: Active Protocol: Document 11/02/22 09:23 TH (Rec: 11/02/22 12:15 TH [id number]) Therapeutic Exercises Supine Exercises hip hike Comments 1 x 10 Standing Exercises hip flexor stretch Comments in standing using counter and chair hip abd, ext Comments light blue band 2 x 10 bilat. for abd and ext. Other Exercises anatomical posture Comments x 5 hold 10 sec Manual Therapy Treatment Manual Techniques Long axis traction right Comments Noted leg length and ant. rot right hip resolved post maual today. hip flexor stretc Comments with massage roller to quads Iliopsoas release right Comments right Self-Care/Home Management Treatment Education Other Education Access Code: [email or web address] URL: [email or web address] Date: 11/02/2022 Prepared by: Catie Yoder Exercises Supine Hip Hike - 1 x daily - 7 x weekly - 1 sets - 10 reps - 5 sec hold Supine Bridge - 1 x daily - 7 x weekly - 3 sets - 10 reps Standing Anatomical Position with Scapular Retraction and Depression at Wall - 1 x daily - 7 x weekly - 1 sets - 5 reps Supine Active Straight Leg Raise - 1 x daily - 7 x weekly - 3 sets - 10 reps Seated Piriformis Stretch with Trunk Bend - 1 x daily - 7 x weekly - 1 sets - 3 reps - 30 hold PT-OP-T Assessment and Plan Start: 09/19/22 15:17 Freq: Status: Active Protocol: Document 11/02/22 09:23 TH (Rec: 11/02/22 12:15 TH [id number]) Physical Therapy Assessment Goals Four Impairment balance Short Term Goal (STG) Pt will score 19/24 or greater on Dynamic Gait Index. STG Duration 10/29/22 Janitor Supervisor Goal (LTG) Pt will improve single leg stance to >20 seconds bilaterally without excess shear. LTG Duration 12/21/22 Three Impairment gait Short Term Goal (STG) Pt will walk 30 minutes on level surface without increase in baseline pain. STG Duration 10/29/22 Janitor Supervisor Goal (LTG) Pt will walk [address] without increase in baseline pain. LTG Duration 12/21/22 Two Impairment pain Short Term Goal (STG) Kylah will report average numeric pain rating in her right groin/hip of 4/10 or less over a one-week period. STG Duration 10/29/22 Janitor Supervisor Goal (LTG) Kylah will improve hip flexion MMT to 4+/5 or greater for greater ease with bed mobility, car transfers, and stepping over obstacles. LTG Duration 12/21/22 One Impairment lacks HEP Short Term Goal (STG) Kylah will be instructed in HEP to improve right hip range of motion and strength to support therapy services provided in clinic. STG Duration 10/29/22 Janitor Supervisor Goal (LTG) Kylah will be independent with HEP to improve BLE strength and to manage her symptoms long-term. LTG Duration 12/21/22 Physical Therapy Plan Frequency and Duration Frequency of Treatment 2x/Week Plan of Care Start Date 09/22/22 Plan of Care End Date 12/21/22 Therapeutic Interventions Therapeutic Interventions Balance Training,Gait Training ,Home Exercise Program,Manual Therapy,Neuromuscular Re- education,Self-Care/Home Management,Soft Tissue Mobilization,Taping, Therapeutic Activities, Therapeutic Exercises Modalities Cold Pack/Ice Massage,Hot Packs Next Visit Focus/Plan Next Visit Plan Modified lunges seated trunk rotation
--- NOTE | 2022-11-04 11:41 | PT.OTN ---
Current Diagnoses Pain in right leg (11/04/22) Difficulty in walking, not elsewhere classified (11/04/22) Physical Therapy Treatment Note PT-OP-A Visit Information Start: 09/19/22 15:17 Freq: Status: Active Protocol: Document 11/04/22 10:35 TH (Rec: 11/04/22 11:40 TH [id number]) Out-Patient Physical Therapy Visit Information Visit Information Visit Type Treatment Note Visit Start Time 10:30 Visit Stop Time 11:20 Total Visit Minutes 50 Visit Number 10 Number of HEEL NAIL RASPER Visits 0 PT-OP-B Current Condition Start: 09/19/22 15:17 Freq: Status: Active Protocol: Document 10/13/22 10:33 SAK (Rec: 10/13/22 11:21 SAK [id number]) Current Condition History of Current Condition Onset Date May 2022 Current Complaints sudden onset R groin and hip pain History of Current Condition Kylah woke up with sudden onset sharp pain in her right groin on 06/07/22. She also had some right sided low back pain and lateral hip pain. She went to the [facility] who sent her to ED. X-ray was negative for fracture. She was sent home with hydrocodone. She took some but did not all. She was diagnosed with rheumatoid arthritis in April. Due to taking methotrexate, she is cautious about taking other medications. She isn't sure whether or not methotrexate has made any difference but it has not been four months yet and her consumer education specialist suggested it could take at least four months to notice changes. Pt saw her PCP a week later with no change in pain symptoms and physician ordered MRI. MRI showed adductor strains and degenerative changes in both hips and pubic symphysis (see below). At this time, Kylah notices any movement of the leg toward the side and single leg stance on the right is painful. Hip flexion is painful. Back pain now comes and goes and she does not notice any particular pattern. She notes that she does have significant left knee OA and she takes voltaren for relief. Pt does express some concern for her balance. She denies falls but notices that she has trouble walking a straight line. Prior Treatments and Tests 06/14/22 MRI R femur: 1. Low- grade muscle strains of the proximal adductor musculature adjacent to the pubic bone. 2. Degenerative changes in the bilateral hips and pubic symphysis. 3. Mild proximal right hamstring tendinosis. 06/14/22 MRI R hip: 1. Muscular edema within the right adductor brevis and longus muscles adjacent to the pubic symphysis as well as the obturator externus muscle and the proximal right gluteus minimus muscle is consistent with low-grade muscle strains. 2. Moderate right hip osteoarthrosis with grade 2-3 chondromalacia, subchondral cystic changes and edema, and marginal osteophyte formation. Diffuse labral degeneration. 3. Degenerative changes also seen in the pubic symphysis, left hip, bilateral sacroiliac joints, and lumbar spine.4. Mild proximal hamstring tendinosis. PT-OP-C Subjective Start: 09/19/22 15:17 Freq: Status: Active Protocol: Document 11/02/22 09:23 TH (Rec: 11/02/22 12:15 TH [id number]) OP-PT Subjective Patient Comments Patient Comments Pt states that she had been feeling really good for a few days and started back to chores etc. After vaccumming pt felt symptoms came back but not as intense. PT-OP-D Balance Start: 09/19/22 15:17 Freq: Status: Active Protocol: Document 09/22/22 09:45 AW (Rec: 09/22/22 10:13 AW [id number]) Balance Tests Single Limb Standing Single Limb- Right <10 sec with excess shear Single Limb- Left 15-20 sec - reports L knee pain PT-OP-F Manual Assessment Start: 09/19/22 15:17 Freq: Status: Active Protocol: Document 09/22/22 09:45 AW (Rec: 09/22/22 10:13 AW [id number]) Manual Assessments Soft Tissue Assessment Soft Tissue Mobility Assessment Tender to palpation with moderate pressure at right proximal adductors and pubic symphysis. Tender to palpation at distal right iliopsoas. Pt reports pain with pressure just posterior to right greater trochanter. Tightness noted along bilateral TFL/ITB. PT-OP-G Mobility & Gait Start: 09/19/22 15:17 Freq: Status: Active Protocol: Document 09/22/22 09:45 AW (Rec: 09/22/22 10:13 AW [id number]) OP Mobility Evaluation Bed Mobility Supine to and from Sit Difficult to lift right leg onto treatment table. Transfers Sit to Stand Able without UE support from standard height chair. Functional Movements Squats Pt states unable due to chronic left knee pain OP Gait Assessment Comments Gait Comments Gait is notable to WBOS with slight genu valgus bilaterally . Pt walks with trunk forward/ flexed at hips with limited hip extension. She has fair heelstrike at initial contact but poor pushoff bilaterally. Path deviation is noted with no obvious directional preference. PT-OP-H Neuro Start: 09/19/22 15:17 Freq: Status: Active Protocol: Document 09/22/22 09:45 AW (Rec: 09/22/22 10:21 AW [id number]) Sensation Evaluation Gross Sensation Gross Sensation WNL PT-OP-J Posture/Palpation/Skin Start: 09/19/22 15:17 Freq: Status: Active Protocol: Document 09/22/22 09:45 AW (Rec: 09/22/22 10:21 AW [id number]) Posture Evaluation Comments Posture Comments Pt stands with weight shifted toward left, slight genu valgus bilaterally. Arches are high bilaterally. PT-OP-K Range of Motion Start: 09/19/22 15:17 Freq: Status: Active Protocol: Document 09/22/22 09:45 AW (Rec: 09/22/22 10:21 AW [id number]) Hip Goniometric Range of Motion Hip right Abduction 40 Comments End-range hip flexion is painful. Pt avoids hip extension due to pain. IR:ER ration is <1:2 with pain reported at both end ranges. Functionally, pt has difficulty initiating SLR. Passively, there is no hamstring restriction noted on either side in passive SLR. left Hip ROM WFL Yes Abduction 50 Comments All ROM WLF except extension. Pt poorly tolerates position for assessment but extension is certainly lacking in gait. IR:ER ration ~1:3 Hip ROM Limitations Hip ROM Limitations Pain PT-OP-M Strength Start: 09/19/22 15:17 Freq: Status: Active Protocol: Document 09/22/22 09:45 AW (Rec: 09/22/22 10:27 AW [id number]) Hip Strength Hip Manual Muscle Testing Right Flexion (L2) 4- Good- Extension (S1) 3 Fair Abduction 4- Good- Adduction 4- Good- External Rotation 4 Good Internal Rotation 4 Good Left Flexion (L2) 4+ Good+ Extension (S1) 3 Fair Abduction 4+ Good+ Adduction 4+ Good+ External Rotation 4+ Good+ Internal Rotation 4+ Good+ Knee Strength Knee Manual Muscle Testing bilateral Flexion (S2) 4+ Good+ Extension (L3) 5 Normal Ankle/Foot Strength Ankle and Foot Manual Muscle Testing bilateral Dorsiflexion (L4) 5 Normal Plantarflexion (S1) 4 Good Toe Strength Toe Manual Muscle Testing Great Toe Extension 4 Good PT-OP-Q Treatments Start: 09/19/22 15:17 Freq: Status: Active Protocol: Document 11/04/22 10:35 TH (Rec: 11/04/22 11:40 TH [id number]) Therapeutic Exercises Supine Exercises isometric hip abduction Side bilateral Comments 2 x 10 ( light blue) withfocus on gluteis medius/pelvic floor activation adductor squeeze Comments 1 x 10 5 sec hold Standing Exercises hip abd, ext Side bilateral Comments 1 x10 each bilaterally Other Exercises knee extension in sitting Side bilateral Comments 1 x 10 blue band Manual Therapy Treatment Manual Techniques hip flexor stretc Comments with massage roller to quads ( right) PT-OP-T Assessment and Plan Start: 09/19/22 15:17 Freq: Status: Active Protocol: Document 11/04/22 10:35 TH (Rec: 11/04/22 11:40 TH [id number]) Physical Therapy Assessment Goals Four Impairment balance Short Term Goal (STG) Pt will score 19/24 or greater on Dynamic Gait Index. STG Duration 10/29/22 Grinder Set Up Operator Thread Goal (LTG) Pt will improve single leg stance to >20 seconds bilaterally without excess shear. LTG Duration 12/21/22 Three Impairment gait Short Term Goal (STG) Pt will walk 30 minutes on level surface without increase in baseline pain. STG Duration 10/29/22 Snf Goal (LTG) Pt will walk [address] without increase in baseline pain. LTG Duration 12/21/22 Two Impairment pain Short Term Goal (STG) Kylah will report average numeric pain rating in her right groin/hip of 4/10 or less over a one-week period. STG Duration 10/29/22 Grinder Set Up Operator Thread Goal (LTG) Kylah will improve hip flexion MMT to 4+/5 or greater for greater ease with bed mobility, car transfers, and stepping over obstacles. LTG Duration 12/21/22 One Impairment lacks HEP Short Term Goal (STG) Kylah will be instructed in HEP to improve right hip range of motion and strength to support therapy services provided in clinic. STG Duration 10/29/22 Grinder Set Up Operator Thread Goal (LTG) Kylah will be independent with HEP to improve BLE strength and to manage her symptoms long-term. LTG Duration 12/21/22 Assessment Summary Assessment Pt is making steady progress, She was able to perform yardwork ( racking) by switching sides from time to time and without having much increase in symptoms. HIps have leveled out and pt is able to maintain this with her HEP at home. Focus is now on strengthening core/hip muscles. Noted significant difference in muscle mass RLE compared to LLE. Physical Therapy Plan Frequency and Duration Frequency of Treatment 2x/Week Plan of Care Start Date 09/22/22 Plan of Care End Date 12/21/22 Therapeutic Interventions Therapeutic Interventions Balance Training,Gait Training ,Home Exercise Program,Manual Therapy,Neuromuscular Re- education,Self-Care/Home Management,Soft Tissue Mobilization,Taping, Therapeutic Activities, Therapeutic Exercises Modalities Cold Pack/Ice Massage,Hot Packs Next Visit Focus/Plan Next Visit Plan Progressive strength training Balance obstacle course to improve/hip strategies
--- NOTE | 2022-11-09 12:20 | PT.OTN ---
Current Diagnoses Pain in right leg (11/09/22) Difficulty in walking, not elsewhere classified (11/09/22) Physical Therapy Treatment Note PT-OP-A Visit Information Start: 09/19/22 15:17 Freq: Status: Active Protocol: Document 11/09/22 10:12 TH (Rec: 11/09/22 12:20 TH [id number]) Out-Patient Physical Therapy Visit Information Visit Information Visit Type Treatment Note Visit Start Time 10:30 Visit Stop Time 11:15 Total Visit Minutes 45 Visit Number 11 Number of DIE WELDER Visits 0 PT-OP-B Current Condition Start: 09/19/22 15:17 Freq: Status: Active Protocol: Document 10/13/22 10:33 SAK (Rec: 10/13/22 11:21 SAK [id number]) Current Condition History of Current Condition Onset Date May 2022 Current Complaints sudden onset R groin and hip pain History of Current Condition Kylah woke up with sudden onset sharp pain in her right groin on 06/07/22. She also had some right sided low back pain and lateral hip pain. She went to the [facility] who sent her to ED. X-ray was negative for fracture. She was sent home with hydrocodone. She took some but did not all. She was diagnosed with rheumatoid arthritis in April. Due to taking methotrexate, she is cautious about taking other medications. She isn't sure whether or not methotrexate has made any difference but it has not been four months yet and her residential field manager suggested it could take at least four months to notice changes. Pt saw her PCP a week later with no change in pain symptoms and physician ordered MRI. MRI showed adductor strains and degenerative changes in both hips and pubic symphysis (see below). At this time, Kylah notices any movement of the leg toward the side and single leg stance on the right is painful. Hip flexion is painful. Back pain now comes and goes and she does not notice any particular pattern. She notes that she does have significant left knee OA and she takes voltaren for relief. Pt does express some concern for her balance. She denies falls but notices that she has trouble walking a straight line. Prior Treatments and Tests 06/14/22 MRI R femur: 1. Low- grade muscle strains of the proximal adductor musculature adjacent to the pubic bone. 2. Degenerative changes in the bilateral hips and pubic symphysis. 3. Mild proximal right hamstring tendinosis. 06/14/22 MRI R hip: 1. Muscular edema within the right adductor brevis and longus muscles adjacent to the pubic symphysis as well as the obturator externus muscle and the proximal right gluteus minimus muscle is consistent with low-grade muscle strains. 2. Moderate right hip osteoarthrosis with grade 2-3 chondromalacia, subchondral cystic changes and edema, and marginal osteophyte formation. Diffuse labral degeneration. 3. Degenerative changes also seen in the pubic symphysis, left hip, bilateral sacroiliac joints, and lumbar spine.4. Mild proximal hamstring tendinosis. PT-OP-C Subjective Start: 09/19/22 15:17 Freq: Status: Active Protocol: Document 11/09/22 10:12 TH (Rec: 11/09/22 12:20 TH [id number]) OP-PT Subjective Patient Comments Patient Comments Pt states that she had a flare up of RA starting last Tuesday and she has not been able to do HEP due to verall body pain . Patient Reported Progress Improving PT-OP-D Balance Start: 09/19/22 15:17 Freq: Status: Active Protocol: Document 09/22/22 09:45 AW (Rec: 09/22/22 10:13 AW [id number]) Balance Tests Single Limb Standing Single Limb- Right <10 sec with excess shear Single Limb- Left 15-20 sec - reports L knee pain PT-OP-F Manual Assessment Start: 09/19/22 15:17 Freq: Status: Active Protocol: Document 09/22/22 09:45 AW (Rec: 09/22/22 10:13 AW [id number]) Manual Assessments Soft Tissue Assessment Soft Tissue Mobility Assessment Tender to palpation with moderate pressure at right proximal adductors and pubic symphysis. Tender to palpation at distal right iliopsoas. Pt reports pain with pressure just posterior to right greater trochanter. Tightness noted along bilateral TFL/ITB. PT-OP-G Mobility & Gait Start: 09/19/22 15:17 Freq: Status: Active Protocol: Document 09/22/22 09:45 AW (Rec: 09/22/22 10:13 AW [id number]) OP Mobility Evaluation Bed Mobility Supine to and from Sit Difficult to lift right leg onto treatment table. Transfers Sit to Stand Able without UE support from standard height chair. Functional Movements Squats Pt states unable due to chronic left knee pain OP Gait Assessment Comments Gait Comments Gait is notable to WBOS with slight genu valgus bilaterally . Pt walks with trunk forward/ flexed at hips with limited hip extension. She has fair heelstrike at initial contact but poor pushoff bilaterally. Path deviation is noted with no obvious directional preference. PT-OP-H Neuro Start: 09/19/22 15:17 Freq: Status: Active Protocol: Document 09/22/22 09:45 AW (Rec: 09/22/22 10:21 AW [id number]) Sensation Evaluation Gross Sensation Gross Sensation WNL PT-OP-J Posture/Palpation/Skin Start: 09/19/22 15:17 Freq: Status: Active Protocol: Document 09/22/22 09:45 AW (Rec: 09/22/22 10:21 AW [id number]) Posture Evaluation Comments Posture Comments Pt stands with weight shifted toward left, slight genu valgus bilaterally. Arches are high bilaterally. PT-OP-K Range of Motion Start: 09/19/22 15:17 Freq: Status: Active Protocol: Document 09/22/22 09:45 AW (Rec: 09/22/22 10:21 AW [id number]) Hip Goniometric Range of Motion Hip right Abduction 40 Comments End-range hip flexion is painful. Pt avoids hip extension due to pain. IR:ER ration is <1:2 with pain reported at both end ranges. Functionally, pt has difficulty initiating SLR. Passively, there is no hamstring restriction noted on either side in passive SLR. left Hip ROM WFL Yes Abduction 50 Comments All ROM WLF except extension. Pt poorly tolerates position for assessment but extension is certainly lacking in gait. IR:ER ration ~1:3 Hip ROM Limitations Hip ROM Limitations Pain PT-OP-M Strength Start: 09/19/22 15:17 Freq: Status: Active Protocol: Document 09/22/22 09:45 AW (Rec: 09/22/22 10:27 AW [id number]) Hip Strength Hip Manual Muscle Testing Right Flexion (L2) 4- Good- Extension (S1) 3 Fair Abduction 4- Good- Adduction 4- Good- External Rotation 4 Good Internal Rotation 4 Good Left Flexion (L2) 4+ Good+ Extension (S1) 3 Fair Abduction 4+ Good+ Adduction 4+ Good+ External Rotation 4+ Good+ Internal Rotation 4+ Good+ Knee Strength Knee Manual Muscle Testing bilateral Flexion (S2) 4+ Good+ Extension (L3) 5 Normal Ankle/Foot Strength Ankle and Foot Manual Muscle Testing bilateral Dorsiflexion (L4) 5 Normal Plantarflexion (S1) 4 Good Toe Strength Toe Manual Muscle Testing Great Toe Extension 4 Good PT-OP-Q Treatments Start: 09/19/22 15:17 Freq: Status: Active Protocol: Document 11/09/22 10:12 TH (Rec: 11/09/22 12:20 TH [id number]) Therapeutic Exercises Other Exercises sit to stand Comments 1 x 10 with assist to hold chair bridges with hip add. Comments 2 x 10 isometric hip abd. Comments 2 x 10 bilat. with TA activ. Nu step Comments 5 min no resistance. slr Comments 2 x 10 with 1 lb weight Manual Therapy Treatment Manual Techniques hip flexor stretc Comments with massage roller to quads ( right) PT-OP-T Assessment and Plan Start: 09/19/22 15:17 Freq: Status: Active Protocol: Document 11/09/22 10:12 TH (Rec: 11/09/22 12:20 TH [id number]) Physical Therapy Assessment Goals Four Impairment balance Short Term Goal (STG) Pt will score 19/24 or greater on Dynamic Gait Index. STG Duration 10/29/22 Prison Goal (LTG) Pt will improve single leg stance to >20 seconds bilaterally without excess shear. LTG Duration 12/21/22 Three Impairment gait Short Term Goal (STG) Pt will walk 30 minutes on level surface without increase in baseline pain. STG Duration 10/29/22 Prison Goal (LTG) Pt will walk [address] [place] [address] without increase in baseline pain. LTG Duration 12/21/22 Two Impairment pain Short Term Goal (STG) Kylah will report average numeric pain rating in her right groin/hip of 4/10 or less over a one-week period. STG Duration 10/29/22 Prison Goal (LTG) Kylah will improve hip flexion MMT to 4+/5 or greater for greater ease with bed mobility, car transfers, and stepping over obstacles. LTG Duration 12/21/22 One Impairment lacks HEP Short Term Goal (STG) Kylah will be instructed in HEP to improve right hip range of motion and strength to support therapy services provided in clinic. STG Duration 10/29/22 Prison Goal (LTG) Kylah will be independent with HEP to improve BLE strength and to manage her symptoms long-term. LTG Duration 12/21/22 Assessment Summary Assessment Pt suffered slight set back over the last week due to RA flare up. Despite RA pt is demonstrating improved posture and hip/core strength. Hips are now level and meir length dispcrepancy has resolved. Will continue strength training of hip/core muscles to improve r hip stability. Physical Therapy Plan Frequency and Duration Frequency of Treatment 2x/Week Plan of Care Start Date 09/22/22 Plan of Care End Date 12/21/22 Therapeutic Interventions Therapeutic Interventions Balance Training,Gait Training ,Home Exercise Program,Manual Therapy,Neuromuscular Re- education,Self-Care/Home Management,Soft Tissue Mobilization,Taping, Therapeutic Activities, Therapeutic Exercises Modalities Cold Pack/Ice Massage,Hot Packs Next Visit Focus/Plan Next Visit Plan Sit to stands with hip alignment
--- NOTE | 2022-11-11 13:09 | PT.OTN ---
Current Diagnoses Pain in right leg (11/11/22) Difficulty in walking, not elsewhere classified (11/11/22) Physical Therapy Treatment Note PT-OP-A Visit Information Start: 09/19/22 15:17 Freq: Status: Active Protocol: Document 11/11/22 10:44 TH (Rec: 11/11/22 13:09 TH [id number]) Out-Patient Physical Therapy Visit Information Visit Information Visit Type Treatment Note Visit Start Time 10:30 Visit Stop Time 11:15 Total Visit Minutes 45 Visit Number 12 Number of WORKERS COMPENSATION CLAIMS EXAMINER Visits 0 PT-OP-B Current Condition Start: 09/19/22 15:17 Freq: Status: Active Protocol: Document 10/13/22 10:33 SAK (Rec: 10/13/22 11:21 SAK [id number]) Current Condition History of Current Condition Onset Date May 2022 Current Complaints sudden onset R groin and hip pain History of Current Condition Kylah woke up with sudden onset sharp pain in her right groin on 06/07/22. She also had some right sided low back pain and lateral hip pain. She went to the [facility] who sent her to ED. X-ray was negative for fracture. She was sent home with hydrocodone. She took some but did not all. She was diagnosed with rheumatoid arthritis in April. Due to taking methotrexate, she is cautious about taking other medications. She isn't sure whether or not methotrexate has made any difference but it has not been four months yet and her staff veterinarian suggested it could take at least four months to notice changes. Pt saw her PCP a week later with no change in pain symptoms and physician ordered MRI. MRI showed adductor strains and degenerative changes in both hips and pubic symphysis (see below). At this time, Kylah notices any movement of the leg toward the side and single leg stance on the right is painful. Hip flexion is painful. Back pain now comes and goes and she does not notice any particular pattern. She notes that she does have significant left knee OA and she takes voltaren for relief. Pt does express some concern for her balance. She denies falls but notices that she has trouble walking a straight line. Prior Treatments and Tests 06/14/22 MRI R femur: 1. Low- grade muscle strains of the proximal adductor musculature adjacent to the pubic bone. 2. Degenerative changes in the bilateral hips and pubic symphysis. 3. Mild proximal right hamstring tendinosis. 06/14/22 MRI R hip: 1. Muscular edema within the right adductor brevis and longus muscles adjacent to the pubic symphysis as well as the obturator externus muscle and the proximal right gluteus minimus muscle is consistent with low-grade muscle strains. 2. Moderate right hip osteoarthrosis with grade 2-3 chondromalacia, subchondral cystic changes and edema, and marginal osteophyte formation. Diffuse labral degeneration. 3. Degenerative changes also seen in the pubic symphysis, left hip, bilateral sacroiliac joints, and lumbar spine.4. Mild proximal hamstring tendinosis. PT-OP-C Subjective Start: 09/19/22 15:17 Freq: Status: Active Protocol: Document 11/11/22 10:44 TH (Rec: 11/11/22 13:09 TH [id number]) OP-PT Subjective Patient Comments Patient Comments Pt reports she feels she has been better able to perform ADLs with less frequent right hip pain however at times r groin pain is still prevalent. Patient Reported Progress Improving PT-OP-D Balance Start: 09/19/22 15:17 Freq: Status: Active Protocol: Document 09/22/22 09:45 AW (Rec: 09/22/22 10:13 AW [id number]) Balance Tests Single Limb Standing Single Limb- Right <10 sec with excess shear Single Limb- Left 15-20 sec - reports L knee pain PT-OP-F Manual Assessment Start: 09/19/22 15:17 Freq: Status: Active Protocol: Document 09/22/22 09:45 AW (Rec: 09/22/22 10:13 AW [id number]) Manual Assessments Soft Tissue Assessment Soft Tissue Mobility Assessment Tender to palpation with moderate pressure at right proximal adductors and pubic symphysis. Tender to palpation at distal right iliopsoas. Pt reports pain with pressure just posterior to right greater trochanter. Tightness noted along bilateral TFL/ITB. PT-OP-G Mobility & Gait Start: 09/19/22 15:17 Freq: Status: Active Protocol: Document 09/22/22 09:45 AW (Rec: 09/22/22 10:13 AW [id number]) OP Mobility Evaluation Bed Mobility Supine to and from Sit Difficult to lift right leg onto treatment table. Transfers Sit to Stand Able without UE support from standard height chair. Functional Movements Squats Pt states unable due to chronic left knee pain OP Gait Assessment Comments Gait Comments Gait is notable to WBOS with slight genu valgus bilaterally . Pt walks with trunk forward/ flexed at hips with limited hip extension. She has fair heelstrike at initial contact but poor pushoff bilaterally. Path deviation is noted with no obvious directional preference. PT-OP-H Neuro Start: 09/19/22 15:17 Freq: Status: Active Protocol: Document 09/22/22 09:45 AW (Rec: 09/22/22 10:21 AW [id number]) Sensation Evaluation Gross Sensation Gross Sensation WNL PT-OP-J Posture/Palpation/Skin Start: 09/19/22 15:17 Freq: Status: Active Protocol: Document 09/22/22 09:45 AW (Rec: 09/22/22 10:21 AW [id number]) Posture Evaluation Comments Posture Comments Pt stands with weight shifted toward left, slight genu valgus bilaterally. Arches are high bilaterally. PT-OP-K Range of Motion Start: 09/19/22 15:17 Freq: Status: Active Protocol: Document 09/22/22 09:45 AW (Rec: 09/22/22 10:21 AW [id number]) Hip Goniometric Range of Motion Hip right Abduction 40 Comments End-range hip flexion is painful. Pt avoids hip extension due to pain. IR:ER ration is <1:2 with pain reported at both end ranges. Functionally, pt has difficulty initiating SLR. Passively, there is no hamstring restriction noted on either side in passive SLR. left Hip ROM WFL Yes Abduction 50 Comments All ROM WLF except extension. Pt poorly tolerates position for assessment but extension is certainly lacking in gait. IR:ER ration ~1:3 Hip ROM Limitations Hip ROM Limitations Pain PT-OP-M Strength Start: 09/19/22 15:17 Freq: Status: Active Protocol: Document 09/22/22 09:45 AW (Rec: 09/22/22 10:27 AW [id number]) Hip Strength Hip Manual Muscle Testing Right Flexion (L2) 4- Good- Extension (S1) 3 Fair Abduction 4- Good- Adduction 4- Good- External Rotation 4 Good Internal Rotation 4 Good Left Flexion (L2) 4+ Good+ Extension (S1) 3 Fair Abduction 4+ Good+ Adduction 4+ Good+ External Rotation 4+ Good+ Internal Rotation 4+ Good+ Knee Strength Knee Manual Muscle Testing bilateral Flexion (S2) 4+ Good+ Extension (L3) 5 Normal Ankle/Foot Strength Ankle and Foot Manual Muscle Testing bilateral Dorsiflexion (L4) 5 Normal Plantarflexion (S1) 4 Good Toe Strength Toe Manual Muscle Testing Great Toe Extension 4 Good PT-OP-Q Treatments Start: 09/19/22 15:17 Freq: Status: Active Protocol: Document 11/11/22 10:44 TH (Rec: 11/11/22 13:09 TH [id number]) Therapeutic Exercises Supine Exercises side stepping with resistance Comments 6x 6 feet ( green band) STS Comments with add. 1 x 10 and raised chair height bridges with hip add Comments 2 x 10 Manual Therapy Treatment Manual Techniques IASTM Comments right groin muscles PT-OP-T Assessment and Plan Start: 09/19/22 15:17 Freq: Status: Active Protocol: Document 11/11/22 10:44 TH (Rec: 11/11/22 13:09 TH [id number]) Physical Therapy Assessment Goals Four Impairment balance Short Term Goal (STG) Pt will score 19/24 or greater on Dynamic Gait Index. STG Duration 10/29/22 Fdc Goal (LTG) Pt will improve single leg stance to >20 seconds bilaterally without excess shear. LTG Duration 12/21/22 Three Impairment gait Short Term Goal (STG) Pt will walk 30 minutes on level surface without increase in baseline pain. STG Duration 10/29/22 Bd Special Education Teacher Goal (LTG) Pt will walk [address] without increase in baseline pain. LTG Duration 12/21/22 Two Impairment pain Short Term Goal (STG) Kylah will report average numeric pain rating in her right groin/hip of 4/10 or less over a one-week period. STG Duration 10/29/22 Fdc Goal (LTG) Kylah will improve hip flexion MMT to 4+/5 or greater for greater ease with bed mobility, car transfers, and stepping over obstacles. LTG Duration 12/21/22 One Impairment lacks HEP Short Term Goal (STG) Kylah will be instructed in HEP to improve right hip range of motion and strength to support therapy services provided in clinic. STG Duration 10/29/22 Fdc Goal (LTG) Kylah will be independent with HEP to improve BLE strength and to manage her symptoms long-term. LTG Duration 12/21/22 Assessment Summary Assessment Pt had been making good progress however right groin pain still prevalent Physical Therapy Plan Frequency and Duration Frequency of Treatment 2x/Week Plan of Care Start Date 09/22/22 Plan of Care End Date 12/21/22 Therapeutic Interventions Therapeutic Interventions Balance Training,Gait Training ,Home Exercise Program,Manual Therapy,Neuromuscular Re- education,Self-Care/Home Management,Soft Tissue Mobilization,Taping, Therapeutic Activities, Therapeutic Exercises Modalities Cold Pack/Ice Massage,Hot Packs Next Visit Focus/Plan Next Note Type Treatment Note Next Visit Plan IASTM r groin muscles Tack and stretch
--- NOTE | 2022-11-18 10:49 | PT.OTN ---
Current Diagnoses Pain in right leg (11/18/22) Difficulty in walking, not elsewhere classified (11/18/22) Physical Therapy Treatment Note PT-OP-A Visit Information Start: 09/19/22 15:17 Freq: Status: Active Protocol: Document 11/18/22 09:52 TH (Rec: 11/18/22 10:49 TH [id number]) Out-Patient Physical Therapy Visit Information Visit Information Visit Type Treatment Note Visit Start Time 09:45 Visit Stop Time 10:30 Total Visit Minutes 45 Visit Number 13 Number of BIOSTATISTICS MANAGER Visits 0 PT-OP-B Current Condition Start: 09/19/22 15:17 Freq: Status: Active Protocol: Document 10/13/22 10:33 SAK (Rec: 10/13/22 11:21 SAK [id number]) Current Condition History of Current Condition Onset Date May 2022 Current Complaints sudden onset R groin and hip pain History of Current Condition Kylah woke up with sudden onset sharp pain in her right groin on 06/07/22. She also had some right sided low back pain and lateral hip pain. She went to the [facility] who sent her to ED. X-ray was negative for fracture. She was sent home with hydrocodone. She took some but did not all. She was diagnosed with rheumatoid arthritis in April. Due to taking methotrexate, she is cautious about taking other medications. She isn't sure whether or not methotrexate has made any difference but it has not been four months yet and her branch account executive suggested it could take at least four months to notice changes. Pt saw her PCP a week later with no change in pain symptoms and physician ordered MRI. MRI showed adductor strains and degenerative changes in both hips and pubic symphysis (see below). At this time, Kylah notices any movement of the leg toward the side and single leg stance on the right is painful. Hip flexion is painful. Back pain now comes and goes and she does not notice any particular pattern. She notes that she does have significant left knee OA and she takes voltaren for relief. Pt does express some concern for her balance. She denies falls but notices that she has trouble walking a straight line. Prior Treatments and Tests 06/14/22 MRI R femur: 1. Low- grade muscle strains of the proximal adductor musculature adjacent to the pubic bone. 2. Degenerative changes in the bilateral hips and pubic symphysis. 3. Mild proximal right hamstring tendinosis. 06/14/22 MRI R hip: 1. Muscular edema within the right adductor brevis and longus muscles adjacent to the pubic symphysis as well as the obturator externus muscle and the proximal right gluteus minimus muscle is consistent with low-grade muscle strains. 2. Moderate right hip osteoarthrosis with grade 2-3 chondromalacia, subchondral cystic changes and edema, and marginal osteophyte formation. Diffuse labral degeneration. 3. Degenerative changes also seen in the pubic symphysis, left hip, bilateral sacroiliac joints, and lumbar spine.4. Mild proximal hamstring tendinosis. PT-OP-C Subjective Start: 09/19/22 15:17 Freq: Status: Active Protocol: Document 11/18/22 09:52 TH (Rec: 11/18/22 10:49 TH [id number]) OP-PT Subjective Patient Comments Patient Comments Pt is making steady progress. She reports feeling pretty good after last rx however groin pain returned a couple of days later. PT-OP-D Balance Start: 09/19/22 15:17 Freq: Status: Active Protocol: Document 09/22/22 09:45 AW (Rec: 09/22/22 10:13 AW [id number]) Balance Tests Single Limb Standing Single Limb- Right <10 sec with excess shear Single Limb- Left 15-20 sec - reports L knee pain PT-OP-F Manual Assessment Start: 09/19/22 15:17 Freq: Status: Active Protocol: Document 09/22/22 09:45 AW (Rec: 09/22/22 10:13 AW [id number]) Manual Assessments Soft Tissue Assessment Soft Tissue Mobility Assessment Tender to palpation with moderate pressure at right proximal adductors and pubic symphysis. Tender to palpation at distal right iliopsoas. Pt reports pain with pressure just posterior to right greater trochanter. Tightness noted along bilateral TFL/ITB. PT-OP-G Mobility & Gait Start: 09/19/22 15:17 Freq: Status: Active Protocol: Document 09/22/22 09:45 AW (Rec: 09/22/22 10:13 AW [id number]) OP Mobility Evaluation Bed Mobility Supine to and from Sit Difficult to lift right leg onto treatment table. Transfers Sit to Stand Able without UE support from standard height chair. Functional Movements Squats Pt states unable due to chronic left knee pain OP Gait Assessment Comments Gait Comments Gait is notable to WBOS with slight genu valgus bilaterally . Pt walks with trunk forward/ flexed at hips with limited hip extension. She has fair heelstrike at initial contact but poor pushoff bilaterally. Path deviation is noted with no obvious directional preference. PT-OP-H Neuro Start: 09/19/22 15:17 Freq: Status: Active Protocol: Document 09/22/22 09:45 AW (Rec: 09/22/22 10:21 AW [id number]) Sensation Evaluation Gross Sensation Gross Sensation WNL PT-OP-J Posture/Palpation/Skin Start: 09/19/22 15:17 Freq: Status: Active Protocol: Document 09/22/22 09:45 AW (Rec: 09/22/22 10:21 AW [id number]) Posture Evaluation Comments Posture Comments Pt stands with weight shifted toward left, slight genu valgus bilaterally. Arches are high bilaterally. PT-OP-K Range of Motion Start: 09/19/22 15:17 Freq: Status: Active Protocol: Document 09/22/22 09:45 AW (Rec: 09/22/22 10:21 AW [id number]) Hip Goniometric Range of Motion Hip right Abduction 40 Comments End-range hip flexion is painful. Pt avoids hip extension due to pain. IR:ER ration is <1:2 with pain reported at both end ranges. Functionally, pt has difficulty initiating SLR. Passively, there is no hamstring restriction noted on either side in passive SLR. left Hip ROM WFL Yes Abduction 50 Comments All ROM WLF except extension. Pt poorly tolerates position for assessment but extension is certainly lacking in gait. IR:ER ration ~1:3 Hip ROM Limitations Hip ROM Limitations Pain PT-OP-M Strength Start: 09/19/22 15:17 Freq: Status: Active Protocol: Document 09/22/22 09:45 AW (Rec: 09/22/22 10:27 AW [id number]) Hip Strength Hip Manual Muscle Testing Right Flexion (L2) 4- Good- Extension (S1) 3 Fair Abduction 4- Good- Adduction 4- Good- External Rotation 4 Good Internal Rotation 4 Good Left Flexion (L2) 4+ Good+ Extension (S1) 3 Fair Abduction 4+ Good+ Adduction 4+ Good+ External Rotation 4+ Good+ Internal Rotation 4+ Good+ Knee Strength Knee Manual Muscle Testing bilateral Flexion (S2) 4+ Good+ Extension (L3) 5 Normal Ankle/Foot Strength Ankle and Foot Manual Muscle Testing bilateral Dorsiflexion (L4) 5 Normal Plantarflexion (S1) 4 Good Toe Strength Toe Manual Muscle Testing Great Toe Extension 4 Good PT-OP-Q Treatments Start: 09/19/22 15:17 Freq: Status: Active Protocol: Document 11/18/22 09:52 TH (Rec: 11/18/22 10:49 TH [id number]) Therapeutic Exercises Other Exercises Review HEP Comments reviewed problematic ex. to clarify proper technique HS stretch Comments in sup. 3x 60 sec holds bilat Manual Therapy Treatment Manual Techniques Tack and stretch Comments r adductor monty/HS in prone IASTM Comments right groin muscles PT-OP-T Assessment and Plan Start: 09/19/22 15:17 Freq: Status: Active Protocol: Document 11/18/22 09:52 TH (Rec: 11/18/22 10:49 TH [id number]) Physical Therapy Assessment Goals Four Impairment balance Short Term Goal (STG) Pt will score 19/24 or greater on Dynamic Gait Index. STG Duration 10/29/22 Residential Goal (LTG) Pt will improve single leg stance to >20 seconds bilaterally without excess shear. LTG Duration 12/21/22 Three Impairment gait Short Term Goal (STG) Pt will walk 30 minutes on level surface without increase in baseline pain. STG Duration 10/29/22 Filter Tank Operator Goal (LTG) Pt will walk [address] without increase in baseline pain. LTG Duration 12/21/22 Two Impairment pain Short Term Goal (STG) Kylah will report average numeric pain rating in her right groin/hip of 4/10 or less over a one-week period. STG Duration 10/29/22 Residential Goal (LTG) Kylah will improve hip flexion MMT to 4+/5 or greater for greater ease with bed mobility, car transfers, and stepping over obstacles. LTG Duration 12/21/22 One Impairment lacks HEP Short Term Goal (STG) Kylah will be instructed in HEP to improve right hip range of motion and strength to support therapy services provided in clinic. STG Duration 10/29/22 Filter Tank Operator Goal (LTG) Kylah will be independent with HEP to improve BLE strength and to manage her symptoms long-term. LTG Duration 12/21/22 Assessment Summary Assessment Pt making steady progress. Todays manual theraoy Rx helped to lengthen adductor monty and reduce pain. Will f/u response to manual next visit. Physical Therapy Plan Frequency and Duration Frequency of Treatment 2x/Week Plan of Care Start Date 09/22/22 Plan of Care End Date 12/21/22 Therapeutic Interventions Therapeutic Interventions Balance Training,Gait Training ,Home Exercise Program,Manual Therapy,Neuromuscular Re- education,Self-Care/Home Management,Soft Tissue Mobilization,Taping, Therapeutic Activities, Therapeutic Exercises Modalities Cold Pack/Ice Massage,Hot Packs
--- NOTE | 2022-11-25 16:23 | PT.OTN ---
Current Diagnoses Pain in right leg (11/25/22) Difficulty in walking, not elsewhere classified (11/25/22) Physical Therapy Treatment Note PT-OP-A Visit Information Start: 09/19/22 15:17 Freq: Status: Active Protocol: Document 11/25/22 16:17 TH (Rec: 11/25/22 16:23 TH [id number]) Out-Patient Physical Therapy Visit Information Visit Information Visit Type Treatment Note Visit Start Time 13:00 Visit Stop Time 13:45 Total Visit Minutes 45 Visit Number 14 Number of PLANT OPERATIONS VICE PRESIDENT Visits 0 PT-OP-B Current Condition Start: 09/19/22 15:17 Freq: Status: Active Protocol: Document 10/13/22 10:33 SAK (Rec: 10/13/22 11:21 SAK [id number]) Current Condition History of Current Condition Onset Date May 2022 Current Complaints sudden onset R groin and hip pain History of Current Condition Kylah woke up with sudden onset sharp pain in her right groin on 06/07/22. She also had some right sided low back pain and lateral hip pain. She went to the [facility] who sent her to ED. X-ray was negative for fracture. She was sent home with hydrocodone. She took some but did not all. She was diagnosed with rheumatoid arthritis in April. Due to taking methotrexate, she is cautious about taking other medications. She isn't sure whether or not methotrexate has made any difference but it has not been four months yet and her gear finisher suggested it could take at least four months to notice changes. Pt saw her PCP a week later with no change in pain symptoms and physician ordered MRI. MRI showed adductor strains and degenerative changes in both hips and pubic symphysis (see below). At this time, Kylah notices any movement of the leg toward the side and single leg stance on the right is painful. Hip flexion is painful. Back pain now comes and goes and she does not notice any particular pattern. She notes that she does have significant left knee OA and she takes voltaren for relief. Pt does express some concern for her balance. She denies falls but notices that she has trouble walking a straight line. Prior Treatments and Tests 06/14/22 MRI R femur: 1. Low- grade muscle strains of the proximal adductor musculature adjacent to the pubic bone. 2. Degenerative changes in the bilateral hips and pubic symphysis. 3. Mild proximal right hamstring tendinosis. 06/14/22 MRI R hip: 1. Muscular edema within the right adductor brevis and longus muscles adjacent to the pubic symphysis as well as the obturator externus muscle and the proximal right gluteus minimus muscle is consistent with low-grade muscle strains. 2. Moderate right hip osteoarthrosis with grade 2-3 chondromalacia, subchondral cystic changes and edema, and marginal osteophyte formation. Diffuse labral degeneration. 3. Degenerative changes also seen in the pubic symphysis, left hip, bilateral sacroiliac joints, and lumbar spine.4. Mild proximal hamstring tendinosis. PT-OP-C Subjective Start: 09/19/22 15:17 Freq: Status: Active Protocol: Document 11/25/22 16:17 TH (Rec: 11/25/22 16:23 TH [id number]) OP-PT Subjective Patient Comments Patient Comments Pt reports Right hip/groin pain had been doing really well after last visit for about 2 days. However, pain returned ( not as severe as before) after doing gardening for a couple of hours. PT-OP-D Balance Start: 09/19/22 15:17 Freq: Status: Active Protocol: Document 09/22/22 09:45 AW (Rec: 09/22/22 10:13 AW [id number]) Balance Tests Single Limb Standing Single Limb- Right <10 sec with excess shear Single Limb- Left 15-20 sec - reports L knee pain PT-OP-F Manual Assessment Start: 09/19/22 15:17 Freq: Status: Active Protocol: Document 09/22/22 09:45 AW (Rec: 09/22/22 10:13 AW [id number]) Manual Assessments Soft Tissue Assessment Soft Tissue Mobility Assessment Tender to palpation with moderate pressure at right proximal adductors and pubic symphysis. Tender to palpation at distal right iliopsoas. Pt reports pain with pressure just posterior to right greater trochanter. Tightness noted along bilateral TFL/ITB. PT-OP-G Mobility & Gait Start: 09/19/22 15:17 Freq: Status: Active Protocol: Document 09/22/22 09:45 AW (Rec: 09/22/22 10:13 AW [id number]) OP Mobility Evaluation Bed Mobility Supine to and from Sit Difficult to lift right leg onto treatment table. Transfers Sit to Stand Able without UE support from standard height chair. Functional Movements Squats Pt states unable due to chronic left knee pain OP Gait Assessment Comments Gait Comments Gait is notable to WBOS with slight genu valgus bilaterally . Pt walks with trunk forward/ flexed at hips with limited hip extension. She has fair heelstrike at initial contact but poor pushoff bilaterally. Path deviation is noted with no obvious directional preference. PT-OP-H Neuro Start: 09/19/22 15:17 Freq: Status: Active Protocol: Document 09/22/22 09:45 AW (Rec: 09/22/22 10:21 AW [id number]) Sensation Evaluation Gross Sensation Gross Sensation WNL PT-OP-J Posture/Palpation/Skin Start: 09/19/22 15:17 Freq: Status: Active Protocol: Document 09/22/22 09:45 AW (Rec: 09/22/22 10:21 AW [id number]) Posture Evaluation Comments Posture Comments Pt stands with weight shifted toward left, slight genu valgus bilaterally. Arches are high bilaterally. PT-OP-K Range of Motion Start: 09/19/22 15:17 Freq: Status: Active Protocol: Document 09/22/22 09:45 AW (Rec: 09/22/22 10:21 AW [id number]) Hip Goniometric Range of Motion Hip right Abduction 40 Comments End-range hip flexion is painful. Pt avoids hip extension due to pain. IR:ER ration is <1:2 with pain reported at both end ranges. Functionally, pt has difficulty initiating SLR. Passively, there is no hamstring restriction noted on either side in passive SLR. left Hip ROM WFL Yes Abduction 50 Comments All ROM WLF except extension. Pt poorly tolerates position for assessment but extension is certainly lacking in gait. IR:ER ration ~1:3 Hip ROM Limitations Hip ROM Limitations Pain PT-OP-M Strength Start: 09/19/22 15:17 Freq: Status: Active Protocol: Document 09/22/22 09:45 AW (Rec: 09/22/22 10:27 AW [id number]) Hip Strength Hip Manual Muscle Testing Right Flexion (L2) 4- Good- Extension (S1) 3 Fair Abduction 4- Good- Adduction 4- Good- External Rotation 4 Good Internal Rotation 4 Good Left Flexion (L2) 4+ Good+ Extension (S1) 3 Fair Abduction 4+ Good+ Adduction 4+ Good+ External Rotation 4+ Good+ Internal Rotation 4+ Good+ Knee Strength Knee Manual Muscle Testing bilateral Flexion (S2) 4+ Good+ Extension (L3) 5 Normal Ankle/Foot Strength Ankle and Foot Manual Muscle Testing bilateral Dorsiflexion (L4) 5 Normal Plantarflexion (S1) 4 Good Toe Strength Toe Manual Muscle Testing Great Toe Extension 4 Good PT-OP-Q Treatments Start: 09/19/22 15:17 Freq: Status: Active Protocol: Document 11/25/22 16:17 TH (Rec: 11/25/22 16:23 TH [id number]) Therapeutic Exercises Supine Exercises lunges Comments modified lunge with UE support and cues for knee/hip alignment isometric hip abduction Comments 2 x 10 ( light blue) withfocus on gluteis medius/pelvic floor activation Manual Therapy Treatment Manual Techniques IASTM Comments Right adductor monty hip flexor stretc Comments with massage roller to quads ( right) PT-OP-T Assessment and Plan Start: 09/19/22 15:17 Freq: Status: Active Protocol: Document 11/25/22 16:17 TH (Rec: 11/25/22 16:23 TH [id number]) Physical Therapy Assessment Goals Four Impairment balance Short Term Goal (STG) Pt will score 19/24 or greater on Dynamic Gait Index. STG Duration 10/29/22 Chocolate Dipper Goal (LTG) Pt will improve single leg stance to >20 seconds bilaterally without excess shear. LTG Duration 12/21/22 Three Impairment gait Short Term Goal (STG) Pt will walk 30 minutes on level surface without increase in baseline pain. STG Duration 10/29/22 Chocolate Dipper Goal (LTG) Pt will walk [address] without increase in baseline pain. LTG Duration 12/21/22 Two Impairment pain Short Term Goal (STG) Kylah will report average numeric pain rating in her right groin/hip of 4/10 or less over a one-week period. STG Duration 10/29/22 Chocolate Dipper Goal (LTG) Kylah will improve hip flexion MMT to 4+/5 or greater for greater ease with bed mobility, car transfers, and stepping over obstacles. LTG Duration 12/21/22 One Impairment lacks HEP Short Term Goal (STG) Kylah will be instructed in HEP to improve right hip range of motion and strength to support therapy services provided in clinic. STG Duration 10/29/22 Chocolate Dipper Goal (LTG) Kylah will be independent with HEP to improve BLE strength and to manage her symptoms long-term. LTG Duration 12/21/22 Assessment Summary Assessment Pt has been making good progress. Decreased hip stabilizer strength of r hip appears to be the main limitation at this time. Will see pt for 2-3 more visits for strength progression of hips and then dc. If pain still significant at that time will refer back to MD for further f /u. Physical Therapy Plan Frequency and Duration Frequency of Treatment 2x/Week Plan of Care Start Date 09/22/22 Plan of Care End Date 12/21/22 Therapeutic Interventions Therapeutic Interventions Balance Training,Gait Training ,Home Exercise Program,Manual Therapy,Neuromuscular Re- education,Self-Care/Home Management,Soft Tissue Mobilization,Taping, Therapeutic Activities, Therapeutic Exercises Modalities Cold Pack/Ice Massage,Hot Packs
--- NOTE | 2022-12-08 10:33 | PT.OTN ---
Current Diagnoses Pain in right leg (12/08/22) Difficulty in walking, not elsewhere classified (12/08/22) Physical Therapy Treatment Note PT-OP-A Visit Information Start: 09/19/22 15:17 Freq: Status: Active Protocol: Document 12/08/22 10:26 TH (Rec: 12/08/22 10:33 TH [id number]) Out-Patient Physical Therapy Visit Information Visit Information Visit Type Treatment Note Visit Start Time 09:45 Visit Stop Time 10:30 Total Visit Minutes 45 Visit Number 15 Number of AUTO BODY STRAIGHTENER Visits 0 PT-OP-B Current Condition Start: 09/19/22 15:17 Freq: Status: Active Protocol: Document 10/13/22 10:33 SAK (Rec: 10/13/22 11:21 SAK [id number]) Current Condition History of Current Condition Onset Date May 2022 Current Complaints sudden onset R groin and hip pain History of Current Condition Kylah woke up with sudden onset sharp pain in her right groin on 06/07/22. She also had some right sided low back pain and lateral hip pain. She went to the [facility] who sent her to ED. X-ray was negative for fracture. She was sent home with hydrocodone. She took some but did not all. She was diagnosed with rheumatoid arthritis in April. Due to taking methotrexate, she is cautious about taking other medications. She isn't sure whether or not methotrexate has made any difference but it has not been four months yet and her scalder suggested it could take at least four months to notice changes. Pt saw her PCP a week later with no change in pain symptoms and physician ordered MRI. MRI showed adductor strains and degenerative changes in both hips and pubic symphysis (see below). At this time, Kylah notices any movement of the leg toward the side and single leg stance on the right is painful. Hip flexion is painful. Back pain now comes and goes and she does not notice any particular pattern. She notes that she does have significant left knee OA and she takes voltaren for relief. Pt does express some concern for her balance. She denies falls but notices that she has trouble walking a straight line. Prior Treatments and Tests 06/14/22 MRI R femur: 1. Low- grade muscle strains of the proximal adductor musculature adjacent to the pubic bone. 2. Degenerative changes in the bilateral hips and pubic symphysis. 3. Mild proximal right hamstring tendinosis. 06/14/22 MRI R hip: 1. Muscular edema within the right adductor brevis and longus muscles adjacent to the pubic symphysis as well as the obturator externus muscle and the proximal right gluteus minimus muscle is consistent with low-grade muscle strains. 2. Moderate right hip osteoarthrosis with grade 2-3 chondromalacia, subchondral cystic changes and edema, and marginal osteophyte formation. Diffuse labral degeneration. 3. Degenerative changes also seen in the pubic symphysis, left hip, bilateral sacroiliac joints, and lumbar spine.4. Mild proximal hamstring tendinosis. PT-OP-C Subjective Start: 09/19/22 15:17 Freq: Status: Active Protocol: Document 12/08/22 10:26 TH (Rec: 12/08/22 10:33 TH [id number]) OP-PT Subjective Patient Comments Patient Comments Pt states right hip has been feeling better. Ant. hip pain has resolved and groin pain is better with most of the pain at distal and proximal ends of add. monty. PT-OP-D Balance Start: 09/19/22 15:17 Freq: Status: Active Protocol: Document 09/22/22 09:45 AW (Rec: 09/22/22 10:13 AW [id number]) Balance Tests Single Limb Standing Single Limb- Right <10 sec with excess shear Single Limb- Left 15-20 sec - reports L knee pain PT-OP-F Manual Assessment Start: 09/19/22 15:17 Freq: Status: Active Protocol: Document 09/22/22 09:45 AW (Rec: 09/22/22 10:13 AW [id number]) Manual Assessments Soft Tissue Assessment Soft Tissue Mobility Assessment Tender to palpation with moderate pressure at right proximal adductors and pubic symphysis. Tender to palpation at distal right iliopsoas. Pt reports pain with pressure just posterior to right greater trochanter. Tightness noted along bilateral TFL/ITB. PT-OP-G Mobility & Gait Start: 09/19/22 15:17 Freq: Status: Active Protocol: Document 09/22/22 09:45 AW (Rec: 09/22/22 10:13 AW [id number]) OP Mobility Evaluation Bed Mobility Supine to and from Sit Difficult to lift right leg onto treatment table. Transfers Sit to Stand Able without UE support from standard height chair. Functional Movements Squats Pt states unable due to chronic left knee pain OP Gait Assessment Comments Gait Comments Gait is notable to WBOS with slight genu valgus bilaterally . Pt walks with trunk forward/ flexed at hips with limited hip extension. She has fair heelstrike at initial contact but poor pushoff bilaterally. Path deviation is noted with no obvious directional preference. PT-OP-H Neuro Start: 09/19/22 15:17 Freq: Status: Active Protocol: Document 09/22/22 09:45 AW (Rec: 09/22/22 10:21 AW [id number]) Sensation Evaluation Gross Sensation Gross Sensation WNL PT-OP-J Posture/Palpation/Skin Start: 09/19/22 15:17 Freq: Status: Active Protocol: Document 09/22/22 09:45 AW (Rec: 09/22/22 10:21 AW [id number]) Posture Evaluation Comments Posture Comments Pt stands with weight shifted toward left, slight genu valgus bilaterally. Arches are high bilaterally. PT-OP-K Range of Motion Start: 09/19/22 15:17 Freq: Status: Active Protocol: Document 09/22/22 09:45 AW (Rec: 09/22/22 10:21 AW [id number]) Hip Goniometric Range of Motion Hip right Abduction 40 Comments End-range hip flexion is painful. Pt avoids hip extension due to pain. IR:ER ration is <1:2 with pain reported at both end ranges. Functionally, pt has difficulty initiating SLR. Passively, there is no hamstring restriction noted on either side in passive SLR. left Hip ROM WFL Yes Abduction 50 Comments All ROM WLF except extension. Pt poorly tolerates position for assessment but extension is certainly lacking in gait. IR:ER ration ~1:3 Hip ROM Limitations Hip ROM Limitations Pain PT-OP-M Strength Start: 09/19/22 15:17 Freq: Status: Active Protocol: Document 09/22/22 09:45 AW (Rec: 09/22/22 10:27 AW [id number]) Hip Strength Hip Manual Muscle Testing Right Flexion (L2) 4- Good- Extension (S1) 3 Fair Abduction 4- Good- Adduction 4- Good- External Rotation 4 Good Internal Rotation 4 Good Left Flexion (L2) 4+ Good+ Extension (S1) 3 Fair Abduction 4+ Good+ Adduction 4+ Good+ External Rotation 4+ Good+ Internal Rotation 4+ Good+ Knee Strength Knee Manual Muscle Testing bilateral Flexion (S2) 4+ Good+ Extension (L3) 5 Normal Ankle/Foot Strength Ankle and Foot Manual Muscle Testing bilateral Dorsiflexion (L4) 5 Normal Plantarflexion (S1) 4 Good Toe Strength Toe Manual Muscle Testing Great Toe Extension 4 Good PT-OP-Q Treatments Start: 09/19/22 15:17 Freq: Status: Active Protocol: Document 12/08/22 10:26 TH (Rec: 12/08/22 10:33 TH [id number]) Manual Therapy Treatment Manual Techniques IASTM Comments Right gracilus, add. monty PT-OP-T Assessment and Plan Start: 09/19/22 15:17 Freq: Status: Active Protocol: Document 12/08/22 10:26 TH (Rec: 12/08/22 10:33 TH [id number]) Physical Therapy Assessment Goals Four Impairment balance Short Term Goal (STG) Pt will score 19/24 or greater on Dynamic Gait Index. STG Duration 10/29/22 Construction Equipment Overhauler Goal (LTG) Pt will improve single leg stance to >20 seconds bilaterally without excess shear. LTG Duration 12/21/22 Three Impairment gait Short Term Goal (STG) Pt will walk 30 minutes on level surface without increase in baseline pain. STG Duration 10/29/22 Construction Equipment Overhauler Goal (LTG) Pt will walk [address] without increase in baseline pain. LTG Duration 12/21/22 Two Impairment pain Short Term Goal (STG) Kylah will report average numeric pain rating in her right groin/hip of 4/10 or less over a one-week period. STG Duration 10/29/22 Construction Equipment Overhauler Goal (LTG) Kylah will improve hip flexion MMT to 4+/5 or greater for greater ease with bed mobility, car transfers, and stepping over obstacles. LTG Duration 12/21/22 One Impairment lacks HEP Short Term Goal (STG) Kylah will be instructed in HEP to improve right hip range of motion and strength to support therapy services provided in clinic. STG Duration 10/29/22 Intermediate Goal (LTG) Kylah will be independent with HEP to improve BLE strength and to manage her symptoms long-term. LTG Duration 12/21/22 Assessment Summary Assessment Pt is making good progress as demonstrated by improving symptoms. Progression slowed slightly over the last two weeks due to costochondritis. Will likely dc pt in 2-3 visits. Physical Therapy Plan Frequency and Duration Frequency of Treatment 2x/Week Plan of Care Start Date 09/22/22 Plan of Care End Date 12/21/22 Therapeutic Interventions Therapeutic Interventions Balance Training,Gait Training ,Home Exercise Program,Manual Therapy,Neuromuscular Re- education,Self-Care/Home Management,Soft Tissue Mobilization,Taping, Therapeutic Activities, Therapeutic Exercises Modalities Cold Pack/Ice Massage,Hot Packs Next Visit Focus/Plan Next Visit Plan Manual Review HEP
--- NOTE | 2022-12-15 17:35 | PT.OTN ---
Current Diagnoses Pain in right leg (12/15/22) Difficulty in walking, not elsewhere classified (12/15/22) Physical Therapy Treatment Note PT-OP-A Visit Information Start: 09/19/22 15:17 Freq: Status: Active Protocol: Document 12/15/22 09:15 SW (Rec: 12/15/22 17:35 SW [id number]) Out-Patient Physical Therapy Visit Information Visit Information Visit Type Treatment Note Visit Start Time 09:15 Visit Stop Time 10:00 Visit Number 45 Number of MANAGER BAKERY Visits 1 PT-OP-B Current Condition Start: 09/19/22 15:17 Freq: Status: Active Protocol: Document 10/13/22 10:33 SAK (Rec: 10/13/22 11:21 SAK [id number]) Current Condition History of Current Condition Onset Date May 2022 Current Complaints sudden onset R groin and hip pain History of Current Condition Kylah woke up with sudden onset sharp pain in her right groin on 06/07/22. She also had some right sided low back pain and lateral hip pain. She went to the [facility] who sent her to ED. X-ray was negative for fracture. She was sent home with hydrocodone. She took some but did not all. She was diagnosed with rheumatoid arthritis in April. Due to taking methotrexate, she is cautious about taking other medications. She isn't sure whether or not methotrexate has made any difference but it has not been four months yet and her distribution sales representative suggested it could take at least four months to notice changes. Pt saw her PCP a week later with no change in pain symptoms and physician ordered MRI. MRI showed adductor strains and degenerative changes in both hips and pubic symphysis (see below). At this time, Kylah notices any movement of the leg toward the side and single leg stance on the right is painful. Hip flexion is painful. Back pain now comes and goes and she does not notice any particular pattern. She notes that she does have significant left knee OA and she takes voltaren for relief. Pt does express some concern for her balance. She denies falls but notices that she has trouble walking a straight line. Prior Treatments and Tests 06/14/22 MRI R femur: 1. Low- grade muscle strains of the proximal adductor musculature adjacent to the pubic bone. 2. Degenerative changes in the bilateral hips and pubic symphysis. 3. Mild proximal right hamstring tendinosis. 06/14/22 MRI R hip: 1. Muscular edema within the right adductor brevis and longus muscles adjacent to the pubic symphysis as well as the obturator externus muscle and the proximal right gluteus minimus muscle is consistent with low-grade muscle strains. 2. Moderate right hip osteoarthrosis with grade 2-3 chondromalacia, subchondral cystic changes and edema, and marginal osteophyte formation. Diffuse labral degeneration. 3. Degenerative changes also seen in the pubic symphysis, left hip, bilateral sacroiliac joints, and lumbar spine.4. Mild proximal hamstring tendinosis. PT-OP-C Subjective Start: 09/19/22 15:17 Freq: Status: Active Protocol: Document 12/15/22 09:15 SW (Rec: 12/15/22 17:35 SW [id number]) OP-PT Subjective Patient Comments Patient Comments Pt reports increased pain today in adductor musculature from stepping over a puddle and feeling a sharp pain. PT-OP-D Balance Start: 09/19/22 15:17 Freq: Status: Active Protocol: Document 09/22/22 09:45 AW (Rec: 09/22/22 10:13 AW [id number]) Balance Tests Single Limb Standing Single Limb- Right <10 sec with excess shear Single Limb- Left 15-20 sec - reports L knee pain PT-OP-F Manual Assessment Start: 09/19/22 15:17 Freq: Status: Active Protocol: Document 09/22/22 09:45 AW (Rec: 09/22/22 10:13 AW [id number]) Manual Assessments Soft Tissue Assessment Soft Tissue Mobility Assessment Tender to palpation with moderate pressure at right proximal adductors and pubic symphysis. Tender to palpation at distal right iliopsoas. Pt reports pain with pressure just posterior to right greater trochanter. Tightness noted along bilateral TFL/ITB. PT-OP-G Mobility & Gait Start: 09/19/22 15:17 Freq: Status: Active Protocol: Document 09/22/22 09:45 AW (Rec: 09/22/22 10:13 AW [id number]) OP Mobility Evaluation Bed Mobility Supine to and from Sit Difficult to lift right leg onto treatment table. Transfers Sit to Stand Able without UE support from standard height chair. Functional Movements Squats Pt states unable due to chronic left knee pain OP Gait Assessment Comments Gait Comments Gait is notable to WBOS with slight genu valgus bilaterally . Pt walks with trunk forward/ flexed at hips with limited hip extension. She has fair heelstrike at initial contact but poor pushoff bilaterally. Path deviation is noted with no obvious directional preference. PT-OP-H Neuro Start: 09/19/22 15:17 Freq: Status: Active Protocol: Document 09/22/22 09:45 AW (Rec: 09/22/22 10:21 AW [id number]) Sensation Evaluation Gross Sensation Gross Sensation WNL PT-OP-J Posture/Palpation/Skin Start: 09/19/22 15:17 Freq: Status: Active Protocol: Document 09/22/22 09:45 AW (Rec: 09/22/22 10:21 AW [id number]) Posture Evaluation Comments Posture Comments Pt stands with weight shifted toward left, slight genu valgus bilaterally. Arches are high bilaterally. PT-OP-K Range of Motion Start: 09/19/22 15:17 Freq: Status: Active Protocol: Document 09/22/22 09:45 AW (Rec: 09/22/22 10:21 AW [id number]) Hip Goniometric Range of Motion Hip right Abduction 40 Comments End-range hip flexion is painful. Pt avoids hip extension due to pain. IR:ER ration is <1:2 with pain reported at both end ranges. Functionally, pt has difficulty initiating SLR. Passively, there is no hamstring restriction noted on either side in passive SLR. left Hip ROM WFL Yes Abduction 50 Comments All ROM WLF except extension. Pt poorly tolerates position for assessment but extension is certainly lacking in gait. IR:ER ration ~1:3 Hip ROM Limitations Hip ROM Limitations Pain PT-OP-M Strength Start: 09/19/22 15:17 Freq: Status: Active Protocol: Document 09/22/22 09:45 AW (Rec: 09/22/22 10:27 AW [id number]) Hip Strength Hip Manual Muscle Testing Right Flexion (L2) 4- Good- Extension (S1) 3 Fair Abduction 4- Good- Adduction 4- Good- External Rotation 4 Good Internal Rotation 4 Good Left Flexion (L2) 4+ Good+ Extension (S1) 3 Fair Abduction 4+ Good+ Adduction 4+ Good+ External Rotation 4+ Good+ Internal Rotation 4+ Good+ Knee Strength Knee Manual Muscle Testing bilateral Flexion (S2) 4+ Good+ Extension (L3) 5 Normal Ankle/Foot Strength Ankle and Foot Manual Muscle Testing bilateral Dorsiflexion (L4) 5 Normal Plantarflexion (S1) 4 Good Toe Strength Toe Manual Muscle Testing Great Toe Extension 4 Good PT-OP-Q Treatments Start: 09/19/22 15:17 Freq: Status: Active Protocol: Document 12/15/22 09:15 SW (Rec: 12/15/22 17:35 [id number]) Therapeutic Exercises Supine Exercises lunges Side bilateral Equipment Used @ countertop Comments modified lunge with UE support and cues for knee/hip alignment hip hike Supine Exercise Name Reviewed HEP Comments 1 x 10 adductor squeeze Supine Exercise Name Reviewed HEP Comments 1 x 10 5 sec hold Standing Exercises hip flexor stretch Standing Exercise Name Reviewed HEP Reps/Minutes 3 x 30 sec hold Comments in standing using counter Other Exercises knee extension in sitting Other Exercise Name Reviewed HEP Side bilateral Comments 1 x 10 blue band Manual Therapy Treatment Manual Techniques Manual STM Body Location RLE add monty Body Position Sitting Comments sustained pressure, c strokes, gentle cross fiber, moderate> deep strokes IASTM Body Location RLE adductor musculature( emphasis on add monty) Body Position Sitting Comments Right gracilus, add. monty Long axis traction right Type Manual distraction Body Location RLE Body Position Supine Reps/Duration 3 x 30 sec PT-OP-T Assessment and Plan Start: 09/19/22 15:17 Freq: Status: Active Protocol: Document 12/15/22 09:15 (Rec: 12/15/22 17:35 [id number]) Physical Therapy Assessment Goals Four Impairment balance Short Term Goal (STG) Pt will score 19/24 or greater on Dynamic Gait Index. STG Duration 10/29/22 Recruiting Scheduler Goal (LTG) Pt will improve single leg stance to >20 seconds bilaterally without excess shear. LTG Duration 12/21/22 Three Impairment gait Short Term Goal (STG) Pt will walk 30 minutes on level surface without increase in baseline pain. STG Duration 10/29/22 Recruiting Scheduler Goal (LTG) Pt will walk [address] without increase in baseline pain. LTG Duration 12/21/22 Two Impairment pain Short Term Goal (STG) Kylah will report average numeric pain rating in her right groin/hip of 4/10 or less over a one-week period. STG Duration 10/29/22 Group Home Goal (LTG) Kylah will improve hip flexion MMT to 4+/5 or greater for greater ease with bed mobility, car transfers, and stepping over obstacles. LTG Duration 12/21/22 One Impairment lacks HEP Short Term Goal (STG) Kylah will be instructed in HEP to improve right hip range of motion and strength to support therapy services provided in clinic. STG Duration 10/29/22 Group Home Goal (LTG) Kylah will be independent with HEP to improve BLE strength and to manage her symptoms long-term. LTG Duration 12/21/22 Assessment Summary Assessment Pt reports good adherance to HEP with the exception of the limitation with some of the exercises d/t costochondritis. She reported today in a lot of discomfort due to a step over a puddle causing pain since her last session. Tx today focused on manual therapy to improve pain and reviewing a few of her HEP exercises to allow symptom relief, good feedback. Recommend reviewing more HEP exercises next session d/t report of discomfort she mentioned with some of them at home, instructed patient not to continue the ones that are causing pain. Physical Therapy Plan Frequency and Duration Frequency of Treatment 2x/Week Plan of Care Start Date 09/22/22 Plan of Care End Date 12/21/22 Therapeutic Interventions Therapeutic Interventions Balance Training,Gait Training ,Home Exercise Program,Manual Therapy,Neuromuscular Re- education,Self-Care/Home Management,Soft Tissue Mobilization,Taping, Therapeutic Activities, Therapeutic Exercises Modalities Cold Pack/Ice Massage,Hot Packs Next Visit Focus/Plan Next Note Type Treatment Note Next Visit Plan Manual Review HEP
--- NOTE | 2022-12-21 18:12 | PT.OTN ---
Current Diagnoses Pain in right leg (12/21/22) Difficulty in walking, not elsewhere classified (12/21/22) Physical Therapy Treatment Note PT-OP-A Visit Information Start: 09/19/22 15:17 Freq: Status: Active Protocol: Document 12/21/22 16:54 LR (Rec: 12/21/22 18:12 [facility] [id number]) Out-Patient Physical Therapy Visit Information Visit Information Visit Type Progress Note Visit Start Time 16:52 Visit Stop Time 17:48 Total Visit Minutes 55 Visit Number 17 Number of CARD PAINTER Visits 0 PT-OP-B Current Condition Start: 09/19/22 15:17 Freq: Status: Active Protocol: Document 10/13/22 10:33 SAK (Rec: 10/13/22 11:21 [facility] [id number]) Current Condition History of Current Condition Onset Date May 2022 Current Complaints sudden onset R groin and hip pain History of Current Condition Kylah woke up with sudden onset sharp pain in her right groin on 06/07/22. She also had some right sided low back pain and lateral hip pain. She went to the [facility] who sent her to ED. X-ray was negative for fracture. She was sent home with hydrocodone. She took some but did not all. She was diagnosed with rheumatoid arthritis in April. Due to taking methotrexate, she is cautious about taking other medications. She isn't sure whether or not methotrexate has made any difference but it has not been four months yet and her secondary teacher suggested it could take at least four months to notice changes. Pt saw her PCP a week later with no change in pain symptoms and physician ordered MRI. MRI showed adductor strains and degenerative changes in both hips and pubic symphysis (see below). At this time, Kylah notices any movement of the leg toward the side and single leg stance on the right is painful. Hip flexion is painful. Back pain now comes and goes and she does not notice any particular pattern. She notes that she does have significant left knee OA and she takes voltaren for relief. Pt does express some concern for her balance. She denies falls but notices that she has trouble walking a straight line. Prior Treatments and Tests 06/14/22 MRI R femur: 1. Low- grade muscle strains of the proximal adductor musculature adjacent to the pubic bone. 2. Degenerative changes in the bilateral hips and pubic symphysis. 3. Mild proximal right hamstring tendinosis. 06/14/22 MRI R hip: 1. Muscular edema within the right adductor brevis and longus muscles adjacent to the pubic symphysis as well as the obturator externus muscle and the proximal right gluteus minimus muscle is consistent with low-grade muscle strains. 2. Moderate right hip osteoarthrosis with grade 2-3 chondromalacia, subchondral cystic changes and edema, and marginal osteophyte formation. Diffuse labral degeneration. 3. Degenerative changes also seen in the pubic symphysis, left hip, bilateral sacroiliac joints, and lumbar spine.4. Mild proximal hamstring tendinosis. PT-OP-C Subjective Start: 09/19/22 15:17 Freq: Status: Active Protocol: Document 12/21/22 16:54 [facility] (Rec: 12/21/22 18:12 [facility] [id number]) OP-PT Subjective Patient Comments Patient Comments Pt reprots she feels like the past month since seeing Catie , she has had much improved pain but still has pain at baseline. notes last session helped relieve her pain PT-OP-D Balance Start: 09/19/22 15:17 Freq: Status: Active Protocol: Document 12/21/22 16:54 [facility] (Rec: 12/21/22 18:12 [facility] [id number]) Balance Tests Single Limb Standing Single Limb- Right >30 sec w/minor shear Single Limb- Left >30 sec PT-OP-E Functional Tests Start: 09/19/22 15:17 Freq: Status: Active Protocol: Document 12/21/22 16:54 [facility] (Rec: 12/21/22 18:12 [facility] [id number]) Functional Tests Dynamic Gait Index (DGI) Score PT-OP-F Manual Assessment Start: 09/19/22 15:17 Freq: Status: Active Protocol: Document 09/22/22 09:45 AW (Rec: 09/22/22 10:13 AW [id number]) Manual Assessments Soft Tissue Assessment Soft Tissue Mobility Assessment Tender to palpation with moderate pressure at right proximal adductors and pubic symphysis. Tender to palpation at distal right iliopsoas. Pt reports pain with pressure just posterior to right greater trochanter. Tightness noted along bilateral TFL/ITB. PT-OP-G Mobility & Gait Start: 09/19/22 15:17 Freq: Status: Active Protocol: Document 09/22/22 09:45 AW (Rec: 09/22/22 10:13 AW [id number]) OP Mobility Evaluation Bed Mobility Supine to and from Sit Difficult to lift right leg onto treatment table. Transfers Sit to Stand Able without UE support from standard height chair. Functional Movements Squats Pt states unable due to chronic left knee pain OP Gait Assessment Comments Gait Comments Gait is notable to WBOS with slight genu valgus bilaterally . Pt walks with trunk forward/ flexed at hips with limited hip extension. She has fair heelstrike at initial contact but poor pushoff bilaterally. Path deviation is noted with no obvious directional preference. PT-OP-H Neuro Start: 09/19/22 15:17 Freq: Status: Active Protocol: Document 09/22/22 09:45 AW (Rec: 09/22/22 10:21 AW [id number]) Sensation Evaluation Gross Sensation Gross Sensation WNL PT-OP-J Posture/Palpation/Skin Start: 09/19/22 15:17 Freq: Status: Active Protocol: Document 09/22/22 09:45 AW (Rec: 09/22/22 10:21 AW [id number]) Posture Evaluation Comments Posture Comments Pt stands with weight shifted toward left, slight genu valgus bilaterally. Arches are high bilaterally. PT-OP-K Range of Motion Start: 09/19/22 15:17 Freq: Status: Active Protocol: Document 09/22/22 09:45 AW (Rec: 09/22/22 10:21 AW [id number]) Hip Goniometric Range of Motion Hip right Abduction 40 Comments End-range hip flexion is painful. Pt avoids hip extension due to pain. IR:ER ration is <1:2 with pain reported at both end ranges. Functionally, pt has difficulty initiating SLR. Passively, there is no hamstring restriction noted on either side in passive SLR. left Hip ROM WFL Yes Abduction 50 Comments All ROM WLF except extension. Pt poorly tolerates position for assessment but extension is certainly lacking in gait. IR:ER ration ~1:3 Hip ROM Limitations Hip ROM Limitations Pain PT-OP-M Strength Start: 09/19/22 15:17 Freq: Status: Active Protocol: Document 12/21/22 16:54 [facility] (Rec: 04/25/23 18:12 [facility] [id number]) Hip Strength Hip Manual Muscle Testing Right Flexion (L2) 4+ Good+ Extension (S1) 4 Good Abduction 4- Good- Adduction 4+ Good+ External Rotation 4 Good Internal Rotation 4+ Good+ Left Flexion (L2) 4+ Good+ Extension (S1) 4+ Good+ Abduction 4+ Good+ Adduction 5 Normal External Rotation 4+ Good+ Internal Rotation 5 Normal Knee Strength Knee Manual Muscle Testing bilateral Flexion (S2) 5 Normal Extension (L3) 5 Normal Ankle/Foot Strength Ankle and Foot Manual Muscle Testing bilateral Dorsiflexion (L4) 5 Normal Plantarflexion (S1) 5 Normal Comments 20 heel raises PT-OP-Q Treatments Start: 09/19/22 15:17 Freq: Status: Active Protocol: Document 12/21/22 16:54 [facility] (Rec: 12/21/22 18:12 [facility] [id number]) Therapeutic Exercises Supine Exercises butterfly stretch Supine Exercise Name gentle AROM hip IR/ER Side right Reps/Minutes 10 Comments edu to avoid stretchd/tp pain Sitting Exercises stretch Sitting Exercise Name attempted pt HEP stretch figure 4 and DC this d/t pain w/this Standing Exercises hip flexor stretch Standing Exercise Name Reviewed HEP-avoid lunge Side bilateral Reps/Minutes 30 sec hold Comments in standing using counter Other Exercises sit to stand Other Exercise Name cues for hip width feet apart Side bilateral Equipment Used table mountain band at knees Reps/Minutes 10 Manual Therapy Treatment Soft Tissue Mobilization adductors, quad, hip flexors Body Location R hip flexor FM w/rot & flex Mobilization Type Sustained Pressure Joint Mobilizations pubic bone Joint R inf FM Self-Care/Home Management Treatment Education Other Education 7min: discussed cont PT as she cont to feel progress w/PT recently. Discussed avoiding exercsies that inc her pain. Edu on her progress and werhe there are still deficits PT-OP-T Assessment and Plan Start: 09/19/22 15:17 Freq: Status: Active Protocol: Document 12/21/22 16:54 [facility] (Rec: 12/21/22 18:12 [facility] [id number]) Physical Therapy Assessment Goals activities Short Term Goal (STG) Pt will be able to do lat stepping w/o inc pain STG Duration 01/10/23 Mcc Goal (LTG) Pt will be able to roll in bed w/o inc pain. LTG Duration 02/10 Four Impairment balance Short Term Goal (STG) Pt will score 19/24 or greater on Dynamic Gait Index. STG Duration achieved 12/21 Mcc Goal (LTG) Pt will improve single leg stance to >20 seconds bilaterally without excess shear. LTG Duration achieved 12/21 Three Impairment gait Short Term Goal (STG) Pt will walk 30 minutes on level surface without increase in baseline pain. STG Duration achieved 12/21 Mcc Goal (LTG) Pt [place] [address] [place] increase in baseline pain. 12/21-has done [employer] but not any forest d/t mud LTG Duration 02/23 Two Impairment pain Short Term Goal (STG) Kylah will report average numeric pain rating in her right groin/hip of 4/10 or less over a one-week period. 12/21-4/10 achy but up to 6-7/ 10 w/activities STG Duration 01/15 Mcc Goal (LTG) Kylah will improve hip flexion MMT to 4+/5 or greater for greater ease with bed mobility, car transfers, and stepping over obstacles. 12/21-can get in/out car comfortably if do the right way, bed mobility (rolling) painful, no issues w/over obstacles; step to the side uncomfortable; strength improved LTG Duration 02/23 One Impairment lacks HEP Short Term Goal (STG) Kylah will be instructed in HEP to improve right hip range of motion and strength to support therapy services provided in clinic. STG Duration achieved 12/21 [place]ider Goal (LTG) Kylah will be independent with HEP to improve BLE strength and to manage her symptoms long-term. 12/21-doing well w/HEP but did have questions & have some too painful LTG Duration 02/23 Assessment Summary Assessment Pt has seen mult therapists and as she started consistant therapy w/past therapist, she was seeing excellent progress. Since IE, pt has made a lot of gains w/strength, functional ability and balance . She cont to have glute weakness especially w/hip abd. she would benfit from cont PT to dec her daily pain and improve functional abiltiy. Physical Therapy Plan Frequency and Duration Frequency of Treatment 2x/Week Duration of treatment (weeks) 8 Plan of Care Start Date 12/21/22 Plan of Care End Date 06/28/23 Therapeutic Interventions Therapeutic Interventions Balance Training,Gait Training ,Home Exercise Program,Joint Mobilizations,Manual Therapy, Neuromuscular Re-education, Orthotic/Prosthetic Management ,Patient/Caregiver Education, Self-Care/Home Management,Soft Tissue Mobilization,Taping, Therapeutic Activities, Therapeutic Exercises Modalities Cold Pack/Ice Massage,Electric Stimulation,Hot Packs, Infrared Therapy,Iontophoresis ,Traction- Mechanical, Ultrasound Next Visit Focus/Plan Next Note Type Treatment Note Next Visit Plan focus on manual to dec pain and improve ROM; ask pt if she has any questions w/HEP adn adjust as needed
--- NOTE | 2022-12-21 18:12 | PT.OPPOC ---
Physical, Occupational & Speech Therapy At [facility] Current Diagnoses Pain in right leg (12/21/22) Difficulty in walking, not elsewhere classified (12/21/22) Visit Care Team Role Provider Type Hany Bhatia MD Attending Provider Physician Family Provider Primary Care Provider Referring Provider Specialty: Internal Medicine Address: [address] [place] [address], [address], [facility] Email: [email or web address] Plan Of Care PT-OP-T Assessment and Plan Start: 09/19/22 15:17 Freq: Status: Active Protocol: Document 12/21/22 16:54 [facility] (Rec: 12/21/22 18:12 [facility] [id number]) Physical Therapy Assessment Goals activities Short Term Goal (STG) Pt will be able to do lat stepping w/o inc pain STG Duration 01/10/23 Advertising Specialist Goal (LTG) Pt will be able to roll in bed w/o inc pain. LTG Duration 02/10 Four Impairment balance Short Term Goal (STG) Pt will score 19/24 or greater on Dynamic Gait Index. STG Duration achieved 12/21 Senior Care Goal (LTG) Pt will improve single leg stance to >20 seconds bilaterally without excess shear. LTG Duration achieved 12/21 Three Impairment gait Short Term Goal (STG) Pt will walk 30 minutes on level surface without increase in baseline pain. STG Duration achieved 12/21 Advertising Specialist Goal (LTG) Pt will [place] [address] [place] [address] without increase in baseline pain. 12/21-has done paved [place] but not any forest d/t mud LTG Duration 02/23 Two Impairment pain Short Term Goal (STG) Kylah will report average numeric pain rating in her right groin/hip of 4/10 or less over a one-week period. 12/21-4/10 achy but up to 6-7/ 10 w/activities STG Duration 01/15 Advertising Specialist Goal (LTG) Kylah will improve hip flexion MMT to 4+/5 or greater for greater ease with bed mobility, car transfers, and stepping over obstacles. 12/21-can get in/out car comfortably if do the right way, bed mobility (rolling) painful, no issues w/over obstacles; step to the side uncomfortable; strength improved LTG Duration 02/23 One Impairment lacks HEP Short Term Goal (STG) Kylah will be instructed in HEP to improve right hip range of motion and strength to support therapy services provided in clinic. STG Duration achieved 12/21 Advertising Specialist Goal (LTG) Kylah will be independent with HEP to improve BLE strength and to manage her symptoms long-term. 12/21-doing well w/HEP but did have questions & have some too painful LTG Duration 02/23 Assessment Summary Assessment Pt has seen mult therapists and as she started consistant therapy w/past therapist, she was seeing excellent progress. Since IE, pt has made a lot of gains w/strength, functional ability and balance . She cont to have glute weakness especially w/hip abd. she would benfit from cont PT to dec her daily pain and improve functional abiltiy. Physical Therapy Plan Frequency and Duration Frequency of Treatment 2x/Week Duration of treatment (weeks) 8 Plan of Care Start Date 12/21/22 Plan of Care End Date 02/23/23 Therapeutic Interventions Therapeutic Interventions Balance Training,Gait Training ,Home Exercise Program,Joint Mobilizations,Manual Therapy, Neuromuscular Re-education, Orthotic/Prosthetic Management ,Patient/Caregiver Education, Self-Care/Home Management,Soft Tissue Mobilization,Taping, Therapeutic Activities, Therapeutic Exercises Modalities Cold Pack/Ice Massage,Electric Stimulation,Hot Packs, Infrared Therapy,Iontophoresis ,Traction- Mechanical, Ultrasound Next Visit Focus/Plan Next Note Type Treatment Note Next Visit Plan focus on manual to dec pain and improve ROM; ask pt if she has any questions w/HEP adn adjust as needed Plan of Care Dates Plan of Care Start Date 12/21/22 Plan of Care End Date 02/23/23 Electronically Signed by: Alisa Anguiano, PT 12/21/22 111 If you are in agreement with this Plan of Care, please return a signed and dated copy. I have reviewed this Plan of Care and certify that the skilled therapy services above are required to meet the patient?s needs. Physician Signature Date Printed Name and Credentials Clinical Instructor Signature Printed Name and Credentials
--- NOTE | 2023-01-10 18:08 | PT.OTN ---
Current Diagnoses Pain in right leg (01/10/23) Difficulty in walking, not elsewhere classified (01/10/23) Physical Therapy Treatment Note PT-OP-A Visit Information Start: 09/19/22 15:17 Freq: Status: Active Protocol: Document 01/10/23 13:35 [facility] (Rec: 01/10/23 18:08 [facility] [id number]) Out-Patient Physical Therapy Visit Information Visit Information Visit Type Treatment Note Visit Start Time 13:35 Visit Stop Time 14:17 Total Visit Minutes 42 Visit Number 18 Number of HIV COUNSELOR Visits 0 PT-OP-B Current Condition Start: 09/19/22 15:17 Freq: Status: Active Protocol: Document 10/13/22 10:33 [facility] (Rec: 10/13/22 11:21 [facility] [id number]) Current Condition History of Current Condition Onset Date May 2022 Current Complaints sudden onset R groin and hip pain History of Current Condition Kylah woke up with sudden onset sharp pain in her right groin on 06/07/22. She also had some right sided low back pain and lateral hip pain. She went to the [facility] who sent her to ED. X-ray was negative for fracture. She was sent home with hydrocodone. She took some but did not all. She was diagnosed with rheumatoid arthritis in April. Due to taking methotrexate, she is cautious about taking other medications. She isn't sure whether or not methotrexate has made any difference but it has not been four months yet and her medical library assistant suggested it could take at least four months to notice changes. Pt saw her PCP a week later with no change in pain symptoms and physician ordered MRI. MRI showed adductor strains and degenerative changes in both hips and pubic symphysis (see below). At this time, Kylah notices any movement of the leg toward the side and single leg stance on the right is painful. Hip flexion is painful. Back pain now comes and goes and she does not notice any particular pattern. She notes that she does have significant left knee OA and she takes voltaren for relief. Pt does express some concern for her balance. She denies falls but notices that she has trouble walking a straight line. Prior Treatments and Tests 06/14/22 MRI R femur: 1. Low- grade muscle strains of the proximal adductor musculature adjacent to the pubic bone. 2. Degenerative changes in the bilateral hips and pubic symphysis. 3. Mild proximal right hamstring tendinosis. 06/14/22 MRI R hip: 1. Muscular edema within the right adductor brevis and longus muscles adjacent to the pubic symphysis as well as the obturator externus muscle and the proximal right gluteus minimus muscle is consistent with low-grade muscle strains. 2. Moderate right hip osteoarthrosis with grade 2-3 chondromalacia, subchondral cystic changes and edema, and marginal osteophyte formation. Diffuse labral degeneration. 3. Degenerative changes also seen in the pubic symphysis, left hip, bilateral sacroiliac joints, and lumbar spine.4. Mild proximal hamstring tendinosis. PT-OP-C Subjective Start: 09/19/22 15:17 Freq: Status: Active Protocol: Document 01/10/23 13:35 [facility] (Rec: 01/10/23 18:08 [facility] [id number]) OP-PT Subjective Patient Comments Patient Comments Pt reports R hip in groin and R back. Pt has been doing a lot of deck washing. PT-OP-D Balance Start: 09/19/22 15:17 Freq: Status: Active Protocol: Document 12/21/22 16:54 [facility] (Rec: 12/21/22 18:12 [facility] [id number]) Balance Tests Single Limb Standing Single Limb- Right >30 sec w/minor shear Single Limb- Left >30 sec PT-OP-E Functional Tests Start: 09/19/22 15:17 Freq: Status: Active Protocol: Document 12/21/22 16:54 [facility] (Rec: 12/21/22 18:12 [facility] [id number]) Functional Tests Dynamic Gait Index (DGI) Score PT-OP-F Manual Assessment Start: 09/19/22 15:17 Freq: Status: Active Protocol: Document 09/22/22 09:45 AW (Rec: 09/22/22 10:13 AW [id number]) Manual Assessments Soft Tissue Assessment Soft Tissue Mobility Assessment Tender to palpation with moderate pressure at right proximal adductors and pubic symphysis. Tender to palpation at distal right iliopsoas. Pt reports pain with pressure just posterior to right greater trochanter. Tightness noted along bilateral TFL/ITB. PT-OP-G Mobility & Gait Start: 09/19/22 15:17 Freq: Status: Active Protocol: Document 09/22/22 09:45 AW (Rec: 09/22/22 10:13 AW [id number]) OP Mobility Evaluation Bed Mobility Supine to and from Sit Difficult to lift right leg onto treatment table. Transfers Sit to Stand Able without UE support from standard height chair. Functional Movements Squats Pt states unable due to chronic left knee pain OP Gait Assessment Comments Gait Comments Gait is notable to WBOS with slight genu valgus bilaterally . Pt walks with trunk forward/ flexed at hips with limited hip extension. She has fair heelstrike at initial contact but poor pushoff bilaterally. Path deviation is noted with no obvious directional preference. PT-OP-H Neuro Start: 09/19/22 15:17 Freq: Status: Active Protocol: Document 09/22/22 09:45 [facility] (Rec: 09/22/22 10:21 AW [id number]) Sensation Evaluation Gross Sensation Gross Sensation WNL PT-OP-J Posture/Palpation/Skin Start: 09/19/22 15:17 Freq: Status: Active Protocol: Document 09/22/22 09:45 AW (Rec: 09/22/22 10:21 AW [id number]) Posture Evaluation Comments Posture Comments Pt stands with weight shifted toward left, slight genu valgus bilaterally. Arches are high bilaterally. PT-OP-K Range of Motion Start: 09/19/22 15:17 Freq: Status: Active Protocol: Document 09/22/22 09:45 AW (Rec: 09/22/22 10:21 AW [id number]) Hip Goniometric Range of Motion Hip right Abduction 40 Comments End-range hip flexion is painful. Pt avoids hip extension due to pain. IR:ER ration is <1:2 with pain reported at both end ranges. Functionally, pt has difficulty initiating SLR. Passively, there is no hamstring restriction noted on either side in passive SLR. left Hip ROM WFL Yes Abduction 50 Comments All ROM WLF except extension. Pt poorly tolerates position for assessment but extension is certainly lacking in gait. IR:ER ration ~1:3 Hip ROM Limitations Hip ROM Limitations Pain PT-OP-M Strength Start: 09/19/22 15:17 Freq: Status: Active Protocol: Document 12/21/22 16:54 [facility] (Rec: 12/21/22 18:12 [facility] [id number]) Hip Strength Hip Manual Muscle Testing Right Flexion (L2) 4+ Good+ Extension (S1) 4 Good Abduction 4- Good- Adduction 4+ Good+ External Rotation 4 Good Internal Rotation 4+ Good+ Left Flexion (L2) 4+ Good+ Extension (S1) 4+ Good+ Abduction 4+ Good+ Adduction 5 Normal External Rotation 4+ Good+ Internal Rotation 5 Normal Knee Strength Knee Manual Muscle Testing bilateral Flexion (S2) 5 Normal Extension (L3) 5 Normal Ankle/Foot Strength Ankle and Foot Manual Muscle Testing bilateral Dorsiflexion (L4) 5 Normal Plantarflexion (S1) 5 Normal Comments 20 heel raises PT-OP-Q Treatments Start: 09/19/22 15:17 Freq: Status: Active Protocol: Document 01/10/23 13:35 [facility] (Rec: 01/10/23 18:08 [facility] [id number]) Manual Therapy Treatment Soft Tissue Mobilization back Body Location R QL Mobilization Type Rolling Intensity/Depth Moderate Body Position Sidelying Joint Mobilizations sacrum Comments UPA R FM seated lumbar Comments gapping s/l L1-4 FM transverse L L2-5 L downglide L4 and 5 sitting FM Neuro Re-Education Treatment Other Activities facilitation Details L>R Comments traction to LE w/bias to abd to focus on wt acceptance in sitting. sit to stand Comments traction to LEs individually to inc facilitation into glute & appropriate wt acceptance L >R PT-OP-T Assessment and Plan Start: 09/19/22 15:17 Freq: Status: Active Protocol: Document 01/10/23 13:35 [facility] (Rec: 01/10/23 18:08 [facility] [id number]) Physical Therapy Assessment Goals activities Short Term Goal (STG) Pt will be able to do lat stepping w/o inc pain STG Duration 01/10/23 Quality Assurance Practice Manager Goal (LTG) Pt will be able to roll in bed w/o inc pain. LTG Duration 02/10 Four Impairment balance Short Term Goal (STG) Pt will score 19/24 or greater on Dynamic Gait Index. STG Duration achieved 12/21 [facility] Goal (LTG) Pt will improve single leg stance to >20 seconds bilaterally without excess shear. LTG Duration achieved 12/21 Three Impairment gait Short Term Goal (STG) Pt will walk 30 minutes on level surface without increase in baseline pain. STG Duration achieved 12/21 Quality Assurance Practice Manager Goal (LTG) Pt will walk [address] without increase in baseline pain. 12/21-has done paved hills but not any forest d/t mud LTG Duration 02/23 Two Impairment pain Short Term Goal (STG) Kylah will report average numeric pain rating in her right groin/hip of 4/10 or less over a one-week period. 12/21-4/10 achy but up to 6-7/ 10 w/activities STG Duration 01/15 [facility] Goal (LTG) Kylah will improve hip flexion MMT to 4+/5 or greater for greater ease with bed mobility, car transfers, and stepping over obstacles. 12/21-can get in/out car comfortably if do the right way, bed mobility (rolling) painful, no issues w/over obstacles; step to the side uncomfortable; strength improved LTG Duration 02/23 One Impairment lacks HEP Short Term Goal (STG) Kylah will be instructed in HEP to improve right hip range of motion and strength to support therapy services provided in clinic. STG Duration achieved 12/21 [facility] Goal (LTG) Kylah will be independent with HEP to improve BLE strength and to manage her symptoms long-term. 12/21-doing well w/HEP but did have questions & have some too painful LTG Duration 02/23 Assessment Summary Assessment Pt reported greater ease with standigna nd walking away after session. She has signfiicant lumbar restriction which limits her abiltiyt to stand up and lumbar pain may be contributing to R hip pain w/radicular symptoms. She had improved ability to roll fwd into lumbar ext after manual in seated. Physical Therapy Plan Frequency and Duration Frequency of Treatment 2x/Week Duration of treatment (weeks) 8 Plan of Care Start Date 12/21/22 Plan of Care End Date 02/23/23 Next Visit Focus/Plan Next Note Type Treatment Note Next Visit Plan focus on manual to dec pain and improve ROM; work on seated and standing mobility for posture-manual focus
--- NOTE | 2023-01-13 11:30 | PT.OTN ---
Current Diagnoses Pain in right leg (01/13/23) Difficulty in walking, not elsewhere classified (01/13/23) Physical Therapy Treatment Note PT-OP-A Visit Information Start: 09/19/22 15:17 Freq: Status: Active Protocol: Document 01/13/23 10:51 [facility] (Rec: 01/13/23 11:40 [facility] [id number]) Out-Patient Physical Therapy Visit Information Visit Information Visit Type Treatment Note Visit Start Time 10:51 Visit Stop Time 11:30 Total Visit Minutes 39 Visit Number 19 Number of SAFETY AND HEALTH CONSULTANT Visits 1 Evaluation Information Evaluation Date 09/22/22 PT-OP-B Current Condition Start: 09/19/22 15:17 Freq: Status: Active Protocol: Document 10/13/22 10:33 [facility] (Rec: 10/13/22 11:21 [facility] [id number]) Current Condition History of Current Condition Onset Date May 2022 Current Complaints sudden onset R groin and hip pain History of Current Condition Kylah woke up with sudden onset sharp pain in her right groin on 06/07/22. She also had some right sided low back pain and lateral hip pain. She went to the [facility] who sent her to ED. X-ray was negative for fracture. She was sent home with hydrocodone. She took some but did not all. She was diagnosed with rheumatoid arthritis in April. Due to taking methotrexate, she is cautious about taking other medications. She isn't sure whether or not methotrexate has made any difference but it has not been four months yet and her plug grower suggested it could take at least four months to notice changes. Pt saw her PCP a week later with no change in pain symptoms and physician ordered MRI. MRI showed adductor strains and degenerative changes in both hips and pubic symphysis (see below). At this time, Kylah notices any movement of the leg toward the side and single leg stance on the right is painful. Hip flexion is painful. Back pain now comes and goes and she does not notice any particular pattern. She notes that she does have significant left knee OA and she takes voltaren for relief. Pt does express some concern for her balance. She denies falls but notices that she has trouble walking a straight line. Prior Treatments and Tests 06/14/22 MRI R femur: 1. Low- grade muscle strains of the proximal adductor musculature adjacent to the pubic bone. 2. Degenerative changes in the bilateral hips and pubic symphysis. 3. Mild proximal right hamstring tendinosis. 06/14/22 MRI R hip: 1. Muscular edema within the right adductor brevis and longus muscles adjacent to the pubic symphysis as well as the obturator externus muscle and the proximal right gluteus minimus muscle is consistent with low-grade muscle strains. 2. Moderate right hip osteoarthrosis with grade 2-3 chondromalacia, subchondral cystic changes and edema, and marginal osteophyte formation. Diffuse labral degeneration. 3. Degenerative changes also seen in the pubic symphysis, left hip, bilateral sacroiliac joints, and lumbar spine.4. Mild proximal hamstring tendinosis. PT-OP-C Subjective Start: 09/19/22 15:17 Freq: Status: Active Protocol: Document 01/13/23 10:51 SP (Rec: 01/13/23 11:40 SP [id number]) OP-PT Subjective Patient Comments Patient Comments Pt reports the manual felt alot better and still relief today. She reports little achy inR hip but no pain. She states can hold herself more upright since last tx. Pt states mulching, picking up winter debris, pulling up weeds and planting doing ok, when steps to far to R then reminds her there but not pain . PT-OP-D Balance Start: 09/19/22 15:17 Freq: Status: Active Protocol: Document 12/21/22 16:54 [facility] (Rec: 12/21/22 18:12 [facility] [id number]) Balance Tests Single Limb Standing Single Limb- Right >30 sec w/minor shear Single Limb- Left >30 sec PT-OP-E Functional Tests Start: 09/19/22 15:17 Freq: Status: Active Protocol: Document 12/21/22 16:54 [facility] (Rec: 12/21/22 18:12 [facility] [id number]) Functional Tests Dynamic Gait Index (DGI) Score PT-OP-F Manual Assessment Start: 09/19/22 15:17 Freq: Status: Active Protocol: Document 09/22/22 09:45 AW (Rec: 09/22/22 10:13 AW [id number]) Manual Assessments Soft Tissue Assessment Soft Tissue Mobility Assessment Tender to palpation with moderate pressure at right proximal adductors and pubic symphysis. Tender to palpation at distal right iliopsoas. Pt reports pain with pressure just posterior to right greater trochanter. Tightness noted along bilateral TFL/ITB. PT-OP-G Mobility & Gait Start: 09/19/22 15:17 Freq: Status: Active Protocol: Document 09/22/22 09:45 AW (Rec: 09/22/22 10:13 AW [id number]) OP Mobility Evaluation Bed Mobility Supine to and from Sit Difficult to lift right leg onto treatment table. Transfers Sit to Stand Able without UE support from standard height chair. Functional Movements Squats Pt states unable due to chronic left knee pain OP Gait Assessment Comments Gait Comments Gait is notable to WBOS with slight genu valgus bilaterally . Pt walks with trunk forward/ flexed at hips with limited hip extension. She has fair heelstrike at initial contact but poor pushoff bilaterally. Path deviation is noted with no obvious directional preference. PT-OP-H Neuro Start: 09/19/22 15:17 Freq: Status: Active Protocol: Document 09/22/22 09:45 AW (Rec: 09/22/22 10:21 AW [id number]) Sensation Evaluation Gross Sensation Gross Sensation WNL PT-OP-J Posture/Palpation/Skin Start: 09/19/22 15:17 Freq: Status: Active Protocol: Document 09/22/22 09:45 AW (Rec: 09/22/22 10:21 AW [id number]) Posture Evaluation Comments Posture Comments Pt stands with weight shifted toward left, slight genu valgus bilaterally. Arches are high bilaterally. PT-OP-K Range of Motion Start: 09/19/22 15:17 Freq: Status: Active Protocol: Document 09/22/22 09:45 AW (Rec: 09/22/22 10:21 AW [id number]) Hip Goniometric Range of Motion Hip right Abduction 40 Comments End-range hip flexion is painful. Pt avoids hip extension due to pain. IR:ER ration is <1:2 with pain reported at both end ranges. Functionally, pt has difficulty initiating SLR. Passively, there is no hamstring restriction noted on either side in passive SLR. left Hip ROM WFL Yes Abduction 50 Comments All ROM WLF except extension. Pt poorly tolerates position for assessment but extension is certainly lacking in gait. IR:ER ration ~1:3 Hip ROM Limitations Hip ROM Limitations Pain PT-OP-M Strength Start: 09/19/22 15:17 Freq: Status: Active Protocol: Document 12/21/22 16:54 [facility] (Rec: 12/21/22 18:12 [facility] [id number]) Hip Strength Hip Manual Muscle Testing Right Flexion (L2) 4+ Good+ Extension (S1) 4 Good Abduction 4- Good- Adduction 4+ Good+ External Rotation 4 Good Internal Rotation 4+ Good+ Left Flexion (L2) 4+ Good+ Extension (S1) 4+ Good+ Abduction 4+ Good+ Adduction 5 Normal External Rotation 4+ Good+ Internal Rotation 5 Normal Knee Strength Knee Manual Muscle Testing bilateral Flexion (S2) 5 Normal Extension (L3) 5 Normal Ankle/Foot Strength Ankle and Foot Manual Muscle Testing bilateral Dorsiflexion (L4) 5 Normal Plantarflexion (S1) 5 Normal Comments 20 heel raises PT-OP-Q Treatments Start: 09/19/22 15:17 Freq: Status: Active Protocol: Document 01/13/23 10:51 SP (Rec: 01/13/23 11:40 SP [id number]) Therapeutic Exercises Supine Exercises butterfly stretch Supine Exercise Name gentle AROM hip IR/ER Side right Reps/Minutes 10 Comments edu to avoid stretchd/tp pain hip flexor stretch Supine Exercise Name howard stretch Side right Comments tight quad, hip flexor. better post manual Standing Exercises hip hinge LS flexion w/ dowel Standing Exercise Name ed with selfcare using wand for back health form Comments better back positioning demonstrated for yard work. Manual Therapy Treatment Soft Tissue Mobilization back Body Location R QL Mobilization Type Rolling,Sustained Pressure, Other Intensity/Depth Moderate Body Position Sidelying Comments manual and sustained pressure with FM hip elevation/ depression adductors, quad, hip flexors Body Location R hip quad, adductor, TF manual w/ FM Mobilization Type Myofascial Release,Strumming, Sustained Pressure Comments manual and self use rolling pin, ball wall. - good feedback less house worker general rolling pin and gentle small movement ball wall. Manual Techniques Manual STM Type quad, adductor rolling pin, Body Location RLE add monty Body Position Sitting Comments manual and ed self seated rolling pin, glut/ Self-Care/Home Management Treatment Education Other Education 10min: Continue education on body mechanics yard work, straight back, TA as needed ( not over tighten), hip hinge, wt shift between BLEs, foot positioning standing. quadruped use 1 UE support, back alignment wt shift rocking BLE. PT-OP-T Assessment and Plan Start: 09/19/22 15:17 Freq: Status: Active Protocol: Document 01/13/23 10:51 SP (Rec: 01/13/23 11:40 SP [id number]) Physical Therapy Assessment Goals activities Short Term Goal (STG) Pt will be able to do lat stepping w/o inc pain 01/13/23: progressing: reports better, little R hip naggy but not pain. STG Duration 01/10/23 progressing 01/13/23 Geophysical Drafter Goal (LTG) Pt will be able to roll in bed w/o inc pain. 01/13/23: States R hip pain still persists. LTG Duration 02/10 continues 01/13/23 Four Impairment balance Short Term Goal (STG) Pt will score 19/24 or greater on Dynamic Gait Index. STG Duration achieved 12/21 [facility] Goal (LTG) Pt will improve single leg stance to >20 seconds bilaterally without excess shear. LTG Duration achieved 12/21 Three Impairment gait Short Term Goal (STG) Pt will walk 30 minutes on level surface without increase in baseline pain. STG Duration achieved 12/21 [facility] Goal (LTG) Pt will walk [address] without increase in baseline pain. 12/21-has done paved hills but not any forest d/t mud 01/13/23: progressing: lately able walk 15 min out/back but not over roots more just uneven ground. LTG Duration 02/23 Two Impairment pain Short Term Goal (STG) Kylah will report average numeric pain rating in her right groin/hip of 4/10 or less over a one-week period. 12/21-4/10 achy but up to 6-7/ 10 w/activities STG Duration 01/15 [facility] Goal (LTG) Kylah will improve hip flexion MMT to 4+/5 or greater for greater ease with bed mobility, car transfers, and stepping over obstacles. 12/21-can get in/out car comfortably if do the right way, bed mobility (rolling) painful, no issues w/over obstacles; step to the side uncomfortable; strength improved LTG Duration 02/23 One Impairment lacks HEP Short Term Goal (STG) Kylah will be instructed in HEP to improve right hip range of motion and strength to support therapy services provided in clinic. STG Duration achieved 12/21 Geophysical Drafter Goal (LTG) Kylah will be independent with HEP to improve BLE strength and to manage her symptoms long-term. 12/21-doing well w/HEP but did have questions & have some too painful LTG Duration 02/23 Assessment Summary Assessment Pt reported decrease anterior R hip/ quad tightness post manual. Good understanding body mechanics and performance with use wand standing, wt shift BLEs back straight hip hinge standing assimulate potting. Physical Therapy Plan Frequency and Duration Frequency of Treatment 2x/Week Duration of treatment (weeks) 8 Plan of Care Start Date 12/21/22 Plan of Care End Date 02/23/23 Therapeutic Interventions Therapeutic Interventions Balance Training,Gait Training ,Home Exercise Program,Joint Mobilizations,Manual Therapy, Neuromuscular Re-education, Orthotic/Prosthetic Management ,Patient/Caregiver Education, Self-Care/Home Management,Soft Tissue Mobilization,Taping, Therapeutic Activities, Therapeutic Exercises Modalities Cold Pack/Ice Massage,Electric Stimulation,Hot Packs, Infrared Therapy,Iontophoresis ,Traction- Mechanical, Ultrasound Next Visit Focus/Plan Next Note Type Treatment Note Next Visit Plan Recheck body mechanics as needed for yard work POC: focus on manual to dec pain and improve ROM; work on seated and standing mobility for posture-manual focus
--- NOTE | 2023-01-27 12:13 | PT.OTN ---
Current Diagnoses Pain in right leg (01/27/23) Difficulty in walking, not elsewhere classified (01/27/23) Physical Therapy Treatment Note PT-OP-A Visit Information Start: 09/19/22 15:17 Freq: Status: Active Protocol: Document 01/27/23 10:04 [facility] (Rec: 01/27/23 12:13 [facility] [id number]) Out-Patient Physical Therapy Visit Information Visit Information Visit Type Treatment Note Visit Start Time 10:04 Visit Stop Time 10:45 Total Visit Minutes 41 Visit Number 20 Number of CARTRIDGE LOADER Visits 0 PT-OP-B Current Condition Start: 09/19/22 15:17 Freq: Status: Active Protocol: Document 10/13/22 10:33 [facility] (Rec: 10/13/22 11:21 [facility] [id number]) Current Condition History of Current Condition Onset Date May 2022 Current Complaints sudden onset R groin and hip pain History of Current Condition Kylah woke up with sudden onset sharp pain in her right groin on 06/07/22. She also had some right sided low back pain and lateral hip pain. She went to the [facility] who sent her to ED. X-ray was negative for fracture. She was sent home with hydrocodone. She took some but did not all. She was diagnosed with rheumatoid arthritis in April. Due to taking methotrexate, she is cautious about taking other medications. She isn't sure whether or not methotrexate has made any difference but it has not been four months yet and her rn enterostomal suggested it could take at least four months to notice changes. Pt saw her PCP a week later with no change in pain symptoms and physician ordered MRI. MRI showed adductor strains and degenerative changes in both hips and pubic symphysis (see below). At this time, Kylah notices any movement of the leg toward the side and single leg stance on the right is painful. Hip flexion is painful. Back pain now comes and goes and she does not notice any particular pattern. She notes that she does have significant left knee OA and she takes voltaren for relief. Pt does express some concern for her balance. She denies falls but notices that she has trouble walking a straight line. Prior Treatments and Tests 06/14/22 MRI R femur: 1. Low- grade muscle strains of the proximal adductor musculature adjacent to the pubic bone. 2. Degenerative changes in the bilateral hips and pubic symphysis. 3. Mild proximal right hamstring tendinosis. 06/14/22 MRI R hip: 1. Muscular edema within the right adductor brevis and longus muscles adjacent to the pubic symphysis as well as the obturator externus muscle and the proximal right gluteus minimus muscle is consistent with low-grade muscle strains. 2. Moderate right hip osteoarthrosis with grade 2-3 chondromalacia, subchondral cystic changes and edema, and marginal osteophyte formation. Diffuse labral degeneration. 3. Degenerative changes also seen in the pubic symphysis, left hip, bilateral sacroiliac joints, and lumbar spine.4. Mild proximal hamstring tendinosis. PT-OP-C Subjective Start: 09/19/22 15:17 Freq: Status: Active Protocol: Document 01/27/23 10:04 [facility] (Rec: 01/27/23 12:13 [facility] [id number]) OP-PT Subjective Patient Comments Patient Comments Pt reports R hip is okay. Pt reports noticing it when accepting wt onto that leg on steps and w/walking w/wt acceptance. After session 2 weeks ago, she felt great for about 1 week and has slowly gone back. Recently she idd a lot of [place]walking on beach and trail PT-OP-D Balance Start: 09/19/22 15:17 Freq: Status: Active Protocol: Document 12/21/22 16:54 [facility] (Rec: 12/21/22 18:12 [facility] [id number]) Balance Tests Single Limb Standing Single Limb- Right >30 sec w/minor shear Single Limb- Left >30 sec PT-OP-E Functional Tests Start: 09/19/22 15:17 Freq: Status: Active Protocol: Document 12/21/22 16:54 [facility] (Rec: 12/21/22 18:12 [facility] [id number]) Functional Tests Dynamic Gait Index (DGI) Score PT-OP-F Manual Assessment Start: 09/19/22 15:17 Freq: Status: Active Protocol: Document 09/22/22 09:45 [facility] (Rec: 09/22/22 10:13 AW [id number]) Manual Assessments Soft Tissue Assessment Soft Tissue Mobility Assessment Tender to palpation with moderate pressure at right proximal adductors and pubic symphysis. Tender to palpation at distal right iliopsoas. Pt reports pain with pressure just posterior to right greater trochanter. Tightness noted along bilateral TFL/ITB. PT-OP-G Mobility & Gait Start: 09/19/22 15:17 Freq: Status: Active Protocol: Document 09/22/22 09:45 [facility] (Rec: 09/22/22 10:13 AW [id number]) OP Mobility Evaluation Bed Mobility Supine to and from Sit Difficult to lift right leg onto treatment table. Transfers Sit to Stand Able without UE support from standard height chair. Functional Movements Squats Pt states unable due to chronic left knee pain OP Gait Assessment Comments Gait Comments Gait is notable to WBOS with slight genu valgus bilaterally . Pt walks with trunk forward/ flexed at hips with limited hip extension. She has fair heelstrike at initial contact but poor pushoff bilaterally. Path deviation is noted with no obvious directional preference. PT-OP-H Neuro Start: 09/19/22 15:17 Freq: Status: Active Protocol: Document 09/22/22 09:45 [facility] (Rec: 09/22/22 10:21 AW [id number]) Sensation Evaluation Gross Sensation Gross Sensation WNL PT-OP-J Posture/Palpation/Skin Start: 09/19/22 15:17 Freq: Status: Active Protocol: Document 09/22/22 09:45 [facility] (Rec: 09/22/22 10:21 AW [id number]) Posture Evaluation Comments Posture Comments Pt stands with weight shifted toward left, slight genu valgus bilaterally. Arches are high bilaterally. PT-OP-K Range of Motion Start: 09/19/22 15:17 Freq: Status: Active Protocol: Document 09/22/22 09:45 AW (Rec: 09/22/22 10:21 AW [id number]) Hip Goniometric Range of Motion Hip right Abduction 40 Comments End-range hip flexion is painful. Pt avoids hip extension due to pain. IR:ER ration is <1:2 with pain reported at both end ranges. Functionally, pt has difficulty initiating SLR. Passively, there is no hamstring restriction noted on either side in passive SLR. left Hip ROM WFL Yes Abduction 50 Comments All ROM WLF except extension. Pt poorly tolerates position for assessment but extension is certainly lacking in gait. IR:ER ration ~1:3 Hip ROM Limitations Hip ROM Limitations Pain PT-OP-M Strength Start: 09/19/22 15:17 Freq: Status: Active Protocol: Document 12/21/22 16:54 [facility] (Rec: 12/21/22 18:12 [facility] [id number]) Hip Strength Hip Manual Muscle Testing Right Flexion (L2) 4+ Good+ Extension (S1) 4 Good Abduction 4- Good- Adduction 4+ Good+ External Rotation 4 Good Internal Rotation 4+ Good+ Left Flexion (L2) 4+ Good+ Extension (S1) 4+ Good+ Abduction 4+ Good+ Adduction 5 Normal External Rotation 4+ Good+ Internal Rotation 5 Normal Knee Strength Knee Manual Muscle Testing bilateral Flexion (S2) 5 Normal Extension (L3) 5 Normal Ankle/Foot Strength Ankle and Foot Manual Muscle Testing bilateral Dorsiflexion (L4) 5 Normal Plantarflexion (S1) 5 Normal Comments 20 heel raises PT-OP-Q Treatments Start: 09/19/22 15:17 Freq: Status: Active Protocol: Document 01/27/23 10:04 [facility] (Rec: 01/27/23 12:13 [facility] [id number]) Gait Training Gait Activity resisted gait Description w/dowel 2x50ft w/max cues for posture gait at wall Treatment Focus post dep Comments 10 sec x2 B wt shifts Comments 1. in mirror w/focus into RLE x10 2. progrssed to wt acceptance to RLE w/o lat shear of pelvis and prolonged hold in position Manual Therapy Treatment Soft Tissue Mobilization adductors, quad, hip flexors Body Location R add Mobilization Type Myofascial Release,Strumming, Sustained Pressure Comments in ab dFM Joint Mobilizations hip Joint R abd FM innominate Joint abd and add FM s/l R lumbar Comments gapping L3-5 FM Transverse L L2-4 FM pubic bone Joint r inf glide Neuro Re-Education Treatment Other Activities PNF Comments 1.post dep R pelvis prolonged hold progressed to COI 2. post dep prolonged hold sustained holds w/LE patternprogressed to COI facilitation Details R Comments traction to LE w/bias to abd to focus on wt acceptance in sitting. PT-OP-T Assessment and Plan Start: 09/19/22 15:17 Freq: Status: Active Protocol: Document 01/27/23 10:04 [facility] (Rec: 01/27/23 12:13 [facility] [id number]) Physical Therapy Assessment Goals activities Short Term Goal (STG) Pt will be able to do lat stepping w/o inc pain 01/13/23: progressing: reports better, little R hip naggy but not pain. STG Duration 01/10/23 progressing 01/13/23 Lap Machine Operator Goal (LTG) Pt will be able to roll in bed w/o inc pain. 01/13/23: States R hip pain still persists. LTG Duration 02/10 continues 01/13/23 Three Impairment gait Short Term Goal (STG) Pt will walk 30 minutes on level surface without increase in baseline pain. STG Duration achieved 12/21 Lap Machine Operator Goal (LTG) Pt will walk [address] [place] [address] without increase in baseline pain. 12/21-has done paved hills but not any forest d/t mud 01/13/23: progressing: lately able walk 15 min out/back but not over roots more just uneven ground. LTG Duration 02/23 Two Impairment pain Short Term Goal (STG) Kylah will report average numeric pain rating in her right groin/hip of 4/10 or less over a one-week period. 12/21-4/10 achy but up to 6-7/ 10 w/activities STG Duration 01/15 Alf Goal (LTG) Kylah will improve hip flexion MMT to 4+/5 or greater for greater ease with bed mobility, car transfers, and stepping over obstacles. 12/21-can get in/out car comfortably if do the right way, bed mobility (rolling) painful, no issues w/over obstacles; step to the side uncomfortable; strength improved LTG Duration 02/23 One Impairment lacks HEP Short Term Goal (STG) Kylah will be instructed in HEP to improve right hip range of motion and strength to support therapy services provided in clinic. STG Duration achieved 12/21 Alf Goal (LTG) Kylah will be independent with HEP to improve BLE strength and to manage her symptoms long-term. 12/21-doing well w/HEP but did have questions & have some too painful LTG Duration 02/23 Assessment Summary Assessment Pt had improved gait pattern w /facilitation activites today w/much improved push off. Improved R abd ROM after manual care and improved IR and flex w/dec pain Physical Therapy Plan Frequency and Duration Frequency of Treatment 2x/Week Duration of treatment (weeks) 8 Plan of Care Start Date 12/21/22 Plan of Care End Date 02/23/23 Next Visit Focus/Plan Next Note Type Treatment Note Next Visit Plan Recheck body mechanics as needed for yard work POC: focus on manual to dec pain and improve ROM; work on seated and standing mobility for posture-manual focus
--- NOTE | 2023-02-02 15:19 | PT.OTN ---
Current Diagnoses Pain in right leg (02/02/23) Difficulty in walking, not elsewhere classified (02/02/23) Physical Therapy Treatment Note PT-OP-A Visit Information Start: 09/19/22 15:17 Freq: Status: Active Protocol: Document 02/02/23 13:36 [facility] (Rec: 02/02/23 15:19 [facility] [id number]) Out-Patient Physical Therapy Visit Information Visit Information Visit Type Treatment Note Visit Start Time 13:37 Visit Stop Time 14:17 Total Visit Minutes 40 Visit Number 21 Number of CLEARANCE REP Visits 0 PT-OP-B Current Condition Start: 09/19/22 15:17 Freq: Status: Active Protocol: Document 10/13/22 10:33 [facility] (Rec: 10/13/22 11:21 [facility] [id number]) Current Condition History of Current Condition Onset Date May 2022 Current Complaints sudden onset R groin and hip pain History of Current Condition Kylah woke up with sudden onset sharp pain in her right groin on 06/07/22. She also had some right sided low back pain and lateral hip pain. She went to the [facility] who sent her to ED. X-ray was negative for fracture. She was sent home with hydrocodone. She took some but did not all. She was diagnosed with rheumatoid arthritis in April. Due to taking methotrexate, she is cautious about taking other medications. She isn't sure whether or not methotrexate has made any difference but it has not been four months yet and her tube puller suggested it could take at least four months to notice changes. Pt saw her PCP a week later with no change in pain symptoms and physician ordered MRI. MRI showed adductor strains and degenerative changes in both hips and pubic symphysis (see below). At this time, Kylah notices any movement of the leg toward the side and single leg stance on the right is painful. Hip flexion is painful. Back pain now comes and goes and she does not notice any particular pattern. She notes that she does have significant left knee OA and she takes voltaren for relief. Pt does express some concern for her balance. She denies falls but notices that she has trouble walking a straight line. Prior Treatments and Tests 06/14/22 MRI R femur: 1. Low- grade muscle strains of the proximal adductor musculature adjacent to the pubic bone. 2. Degenerative changes in the bilateral hips and pubic symphysis. 3. Mild proximal right hamstring tendinosis. 06/14/22 MRI R hip: 1. Muscular edema within the right adductor brevis and longus muscles adjacent to the pubic symphysis as well as the obturator externus muscle and the proximal right gluteus minimus muscle is consistent with low-grade muscle strains. 2. Moderate right hip osteoarthrosis with grade 2-3 chondromalacia, subchondral cystic changes and edema, and marginal osteophyte formation. Diffuse labral degeneration. 3. Degenerative changes also seen in the pubic symphysis, left hip, bilateral sacroiliac joints, and lumbar spine.4. Mild proximal hamstring tendinosis. PT-OP-C Subjective Start: 09/19/22 15:17 Freq: Status: Active Protocol: Document 02/02/23 13:36 [facility] (Rec: 02/02/23 15:19 [facility] [id number]) OP-PT Subjective Patient Comments Patient Comments Pt reports she fels like the last session really helped. since starting PT w/this thi PT, she has much improved PT-OP-D Balance Start: 09/19/22 15:17 Freq: Status: Active Protocol: Document 12/21/22 16:54 [facility] (Rec: 12/21/22 18:12 [facility] [id number]) Balance Tests Single Limb Standing Single Limb- Right >30 sec w/minor shear Single Limb- Left >30 sec PT-OP-E Functional Tests Start: 09/19/22 15:17 Freq: Status: Active Protocol: Document 12/21/22 16:54 [facility] (Rec: 12/21/22 18:12 [facility] [id number]) Functional Tests Dynamic Gait Index (DGI) Score PT-OP-F Manual Assessment Start: 09/19/22 15:17 Freq: Status: Active Protocol: Document 09/22/22 09:45 AW (Rec: 09/22/22 10:13 AW [id number]) Manual Assessments Soft Tissue Assessment Soft Tissue Mobility Assessment Tender to palpation with moderate pressure at right proximal adductors and pubic symphysis. Tender to palpation at distal right iliopsoas. Pt reports pain with pressure just posterior to right greater trochanter. Tightness noted along bilateral TFL/ITB. PT-OP-G Mobility & Gait Start: 09/19/22 15:17 Freq: Status: Active Protocol: Document 09/22/22 09:45 [facility] (Rec: 09/22/22 10:13 AW [id number]) OP Mobility Evaluation Bed Mobility Supine to and from Sit Difficult to lift right leg onto treatment table. Transfers Sit to Stand Able without UE support from standard height chair. Functional Movements Squats Pt states unable due to chronic left knee pain OP Gait Assessment Comments Gait Comments Gait is notable to WBOS with slight genu valgus bilaterally . Pt walks with trunk forward/ flexed at hips with limited hip extension. She has fair heelstrike at initial contact but poor pushoff bilaterally. Path deviation is noted with no obvious directional preference. PT-OP-H Neuro Start: 09/19/22 15:17 Freq: Status: Active Protocol: Document 09/22/22 09:45 [facility] (Rec: 09/22/22 10:21 AW [id number]) Sensation Evaluation Gross Sensation Gross Sensation WNL PT-OP-J Posture/Palpation/Skin Start: 09/19/22 15:17 Freq: Status: Active Protocol: Document 09/22/22 09:45 AW (Rec: 09/22/22 10:21 AW [id number]) Posture Evaluation Comments Posture Comments Pt stands with weight shifted toward left, slight genu valgus bilaterally. Arches are high bilaterally. PT-OP-K Range of Motion Start: 09/19/22 15:17 Freq: Status: Active Protocol: Document 09/22/22 09:45 AW (Rec: 09/22/22 10:21 AW [id number]) Hip Goniometric Range of Motion Hip right Abduction 40 Comments End-range hip flexion is painful. Pt avoids hip extension due to pain. IR:ER ration is <1:2 with pain reported at both end ranges. Functionally, pt has difficulty initiating SLR. Passively, there is no hamstring restriction noted on either side in passive SLR. left Hip ROM WFL Yes Abduction 50 Comments All ROM WLF except extension. Pt poorly tolerates position for assessment but extension is certainly lacking in gait. IR:ER ration ~1:3 Hip ROM Limitations Hip ROM Limitations Pain PT-OP-M Strength Start: 09/19/22 15:17 Freq: Status: Active Protocol: Document 12/21/22 16:54 [facility] (Rec: 12/21/22 18:12 [facility] [id number]) Hip Strength Hip Manual Muscle Testing Right Flexion (L2) 4+ Good+ Extension (S1) 4 Good Abduction 4- Good- Adduction 4+ Good+ External Rotation 4 Good Internal Rotation 4+ Good+ Left Flexion (L2) 4+ Good+ Extension (S1) 4+ Good+ Abduction 4+ Good+ Adduction 5 Normal External Rotation 4+ Good+ Internal Rotation 5 Normal Knee Strength Knee Manual Muscle Testing bilateral Flexion (S2) 5 Normal Extension (L3) 5 Normal Ankle/Foot Strength Ankle and Foot Manual Muscle Testing bilateral Dorsiflexion (L4) 5 Normal Plantarflexion (S1) 5 Normal Comments 20 heel raises PT-OP-Q Treatments Start: 09/19/22 15:17 Freq: Status: Active Protocol: Document 02/02/23 13:36 [facility] (Rec: 02/02/23 15:19 [facility] [id number]) Therapeutic Exercises Other Exercises lunge Other Exercise Name diagonal w/counter 2. diagonal then body twist Side right Reps/Minutes 10 ea Gait Training Gait Activity resisted gait Description w/dowel 2x50ft w/max cues for posture gait at wall Treatment Focus post dep Comments 10 sec x3 B wt shifts Comments 1. in mirror w/focus into RLE x10 2. progrssed to wt acceptance to LE w/o lat shear of pelvis and prolonged hold in position Bx10 ea Manual Therapy Treatment Soft Tissue Mobilization HS Body Location R Mobilization Type Rolling Comments w/lacy ball position & active HS stretch adductors, quad, hip flexors Body Location R add Mobilization Type Myofascial Release,Strumming, Sustained Pressure Comments in fencer position w/wt shift PT-OP-T Assessment and Plan Start: 09/19/22 15:17 Freq: Status: Active Protocol: Document 02/02/23 13:36 [facility] (Rec: 02/02/23 15:19 [facility] [id number]) Physical Therapy Assessment Goals activities Short Term Goal (STG) Pt will be able to do lat stepping w/o inc pain 01/13/23: progressing: reports better, little R hip naggy but not pain. STG Duration 01/10/23 progressing 01/13/23 Intermediate Goal (LTG) Pt will be able to roll in bed w/o inc pain. 01/13/23: States R hip pain still persists. LTG Duration 02/10 continues 01/13/23 Three Impairment gait Short Term Goal (STG) Pt will walk 30 minutes on level surface without increase in baseline pain. STG Duration achieved 12/21 Intermediate Goal (LTG) Pt will walk [address] without increase in baseline pain. 12/21-has done paved hills but not any forest d/t mud 01/13/23: progressing: lately able walk 15 min out/back but not over roots more just uneven ground. LTG Duration 02/23 Two Impairment pain Short Term Goal (STG) Kylah will report average numeric pain rating in her right groin/hip of 4/10 or less over a one-week period. 12/21-4/10 achy but up to 6-7/ 10 w/activities STG Duration 01/15 Cloud Automation Tester Goal (LTG) Kylah will improve hip flexion MMT to 4+/5 or greater for greater ease with bed mobility, car transfers, and stepping over obstacles. 12/21-can get in/out car comfortably if do the right way, bed mobility (rolling) painful, no issues w/over obstacles; step to the side uncomfortable; strength improved LTG Duration 02/23 One Impairment lacks HEP Short Term Goal (STG) Kylah will be instructed in HEP to improve right hip range of motion and strength to support therapy services provided in clinic. STG Duration achieved 12/21 Cloud Automation Tester Goal (LTG) Kylah will be independent with HEP to improve BLE strength and to manage her symptoms long-term. 12/21-doing well w/HEP but did have questions & have some too painful LTG Duration 02/23 Assessment Summary Assessment Pt did well with exercises and is able to lunge better w/ cues and training and w/manual treatment. She improved w/ gait mecahnics but still needs cues Physical Therapy Plan Next Visit Focus/Plan Next Note Type Treatment Note Next Visit Plan Recheck body mechanics as needed for yard work POC: focus on manual to dec pain and improve ROM; work on seated and standing mobility for posture-manual focus
--- NOTE | 2023-02-04 13:31 | PT.OTN ---
Current Diagnoses Pain in right leg (02/04/23) Difficulty in walking, not elsewhere classified (02/04/23) Physical Therapy Treatment Note PT-OP-A Visit Information Start: 09/19/22 15:17 Freq: Status: Active Protocol: Document 02/04/23 12:48 SP (Rec: 02/04/23 13:34 SP [id number]) Out-Patient Physical Therapy Visit Information Visit Information Visit Type Treatment Note Visit Start Time 12:48 Visit Stop Time 13:31 Total Visit Minutes 43 Visit Number 22 Number of PERINATOLOGY PHYSICIAN Visits 1 Evaluation Information Evaluation Date 09/22/22 PT-OP-B Current Condition Start: 09/19/22 15:17 Freq: Status: Active Protocol: Document 10/13/22 10:33 SAK (Rec: 10/13/22 11:21 SAK [id number]) Current Condition History of Current Condition Onset Date May 2022 Current Complaints sudden onset R groin and hip pain History of Current Condition Kylah woke up with sudden onset sharp pain in her right groin on 06/07/22. She also had some right sided low back pain and lateral hip pain. She went to the [facility] who sent her to ED. X-ray was negative for fracture. She was sent home with hydrocodone. She took some but did not all. She was diagnosed with rheumatoid arthritis in April. Due to taking methotrexate, she is cautious about taking other medications. She isn't sure whether or not methotrexate has made any difference but it has not been four months yet and her strategy director suggested it could take at least four months to notice changes. Pt saw her PCP a week later with no change in pain symptoms and physician ordered MRI. MRI showed adductor strains and degenerative changes in both hips and pubic symphysis (see below). At this time, Kylah notices any movement of the leg toward the side and single leg stance on the right is painful. Hip flexion is painful. Back pain now comes and goes and she does not notice any particular pattern. She notes that she does have significant left knee OA and she takes voltaren for relief. Pt does express some concern for her balance. She denies falls but notices that she has trouble walking a straight line. Prior Treatments and Tests 06/14/22 MRI R femur: 1. Low- grade muscle strains of the proximal adductor musculature adjacent to the pubic bone. 2. Degenerative changes in the bilateral hips and pubic symphysis. 3. Mild proximal right hamstring tendinosis. 06/14/22 MRI R hip: 1. Muscular edema within the right adductor brevis and longus muscles adjacent to the pubic symphysis as well as the obturator externus muscle and the proximal right gluteus minimus muscle is consistent with low-grade muscle strains. 2. Moderate right hip osteoarthrosis with grade 2-3 chondromalacia, subchondral cystic changes and edema, and marginal osteophyte formation. Diffuse labral degeneration. 3. Degenerative changes also seen in the pubic symphysis, left hip, bilateral sacroiliac joints, and lumbar spine.4. Mild proximal hamstring tendinosis. PT-OP-C Subjective Start: 09/19/22 15:17 Freq: Status: Active Protocol: Document 02/04/23 12:48 SP (Rec: 02/04/23 13:34 SP [id number]) OP-PT Subjective Patient Comments Patient Comments Pt reports feeling little discomfort R low back after activity, trying to have better posture. Arrives little flexed at hips when walking but good elevated posture stationary. PT-OP-D Balance Start: 09/19/22 15:17 Freq: Status: Active Protocol: Document 12/21/22 16:54 [facility] (Rec: 12/21/22 18:12 [facility] [id number]) Balance Tests Single Limb Standing Single Limb- Right >30 sec w/minor shear Single Limb- Left >30 sec PT-OP-E Functional Tests Start: 09/19/22 15:17 Freq: Status: Active Protocol: Document 12/21/22 16:54 LR (Rec: 12/21/22 18:12 [facility] [id number]) Functional Tests Dynamic Gait Index (DGI) Score PT-OP-F Manual Assessment Start: 09/19/22 15:17 Freq: Status: Active Protocol: Document 09/22/22 09:45 AW (Rec: 09/22/22 10:13 AW [id number]) Manual Assessments Soft Tissue Assessment Soft Tissue Mobility Assessment Tender to palpation with moderate pressure at right proximal adductors and pubic symphysis. Tender to palpation at distal right iliopsoas. Pt reports pain with pressure just posterior to right greater trochanter. Tightness noted along bilateral TFL/ITB. PT-OP-G Mobility & Gait Start: 09/19/22 15:17 Freq: Status: Active Protocol: Document 09/22/22 09:45 AW (Rec: 09/22/22 10:13 AW [id number]) OP Mobility Evaluation Bed Mobility Supine to and from Sit Difficult to lift right leg onto treatment table. Transfers Sit to Stand Able without UE support from standard height chair. Functional Movements Squats Pt states unable due to chronic left knee pain OP Gait Assessment Comments Gait Comments Gait is notable to WBOS with slight genu valgus bilaterally . Pt walks with trunk forward/ flexed at hips with limited hip extension. She has fair heelstrike at initial contact but poor pushoff bilaterally. Path deviation is noted with no obvious directional preference. PT-OP-H Neuro Start: 09/19/22 15:17 Freq: Status: Active Protocol: Document 09/22/22 09:45 AW (Rec: 09/22/22 10:21 AW [id number]) Sensation Evaluation Gross Sensation Gross Sensation WNL PT-OP-J Posture/Palpation/Skin Start: 09/19/22 15:17 Freq: Status: Active Protocol: Document 09/22/22 09:45 AW (Rec: 09/22/22 10:21 AW [id number]) Posture Evaluation Comments Posture Comments Pt stands with weight shifted toward left, slight genu valgus bilaterally. Arches are high bilaterally. PT-OP-K Range of Motion Start: 09/19/22 15:17 Freq: Status: Active Protocol: Document 09/22/22 09:45 AW (Rec: 09/22/22 10:21 AW [id number]) Hip Goniometric Range of Motion Hip right Abduction 40 Comments End-range hip flexion is painful. Pt avoids hip extension due to pain. IR:ER ration is <1:2 with pain reported at both end ranges. Functionally, pt has difficulty initiating SLR. Passively, there is no hamstring restriction noted on either side in passive SLR. left Hip ROM WFL Yes Abduction 50 Comments All ROM WLF except extension. Pt poorly tolerates position for assessment but extension is certainly lacking in gait. IR:ER ration ~1:3 Hip ROM Limitations Hip ROM Limitations Pain PT-OP-M Strength Start: 09/19/22 15:17 Freq: Status: Active Protocol: Document 12/21/22 16:54 [facility] (Rec: 12/21/22 18:12 [facility] [id number]) Hip Strength Hip Manual Muscle Testing Right Flexion (L2) 4+ Good+ Extension (S1) 4 Good Abduction 4- Good- Adduction 4+ Good+ External Rotation 4 Good Internal Rotation 4+ Good+ Left Flexion (L2) 4+ Good+ Extension (S1) 4+ Good+ Abduction 4+ Good+ Adduction 5 Normal External Rotation 4+ Good+ Internal Rotation 5 Normal Knee Strength Knee Manual Muscle Testing bilateral Flexion (S2) 5 Normal Extension (L3) 5 Normal Ankle/Foot Strength Ankle and Foot Manual Muscle Testing bilateral Dorsiflexion (L4) 5 Normal Plantarflexion (S1) 5 Normal Comments 20 heel raises PT-OP-Q Treatments Start: 09/19/22 15:17 Freq: Status: Active Protocol: Document 02/04/23 12:48 SP (Rec: 02/04/23 13:34 SP [id number]) Therapeutic Exercises Supine Exercises hip flexor stretch Supine Exercise Name howard stretch- reviewed continue at home. Side bilateral Resistance R>L Reps/Minutes 2 min total Comments hip flexor, better post manual . L able level with table Gait Training Gait Activity wt shifts Comments 1. in mirror w/focus into RLE x10 2. progrssed to wt acceptance to LE w/o lat shear of pelvis and prolonged hold in position Bx10 ea Improved SLS time- gave gait phase HO for self awareness w/ posture core and level hips Manual Therapy Treatment Soft Tissue Mobilization back Body Location R QL Mobilization Type Rolling,Sustained Pressure, Other Intensity/Depth Moderate Body Position Sidelying Comments manual and sustained pressure with FM hip elevation/ depression adductors, quad, hip flexors Body Location R add, psoas Mobilization Type Myofascial Release,Strumming, Sustained Pressure Comments in fencer position w/wt shift Joint Mobilizations hip Joint R inferior glide and posterolateral (piriformis position) Direction posterolateral Grade II Body Position Hooklying Comments manual, good gentle stretch response within hip j t. PT-OP-T Assessment and Plan Start: 09/19/22 15:17 Freq: Status: Active Protocol: Document 02/04/23 12:48 SP (Rec: 02/04/23 13:34 SP [id number]) Physical Therapy Assessment Goals activities Short Term Goal (STG) Pt will be able to do lat stepping w/o inc pain 01/13/23: progressing: reports better, little R hip naggy but not pain. STG Duration 01/10/23 progressing 01/13/23 Assisted Goal (LTG) Pt will be able to roll in bed w/o inc pain. 01/13/23: States R hip pain still persists. LTG Duration 02/10 continues 01/13/23 Three Impairment gait Short Term Goal (STG) Pt will walk 30 minutes on level surface without increase in baseline pain. STG Duration achieved 12/21 Assisted Goal (LTG) Pt will walk [address] [place] [address] without increase in baseline pain. 12/21-has done paved [employer] but not any forest d/t mud 01/13/23: progressing: lately able walk 15 min out/back but not over roots more just uneven ground. LTG Duration 02/23 Two Impairment pain Short Term Goal (STG) Kylah will report average numeric pain rating in her right groin/hip of 4/10 or less over a one-week period. 12/21-4/10 achy but up to 6-7/ 10 w/activities STG Duration 01/15 Refrigeration Mechanic Goal (LTG) Kylah will improve hip flexion MMT to 4+/5 or greater for greater ease with bed mobility, car transfers, and stepping over obstacles. 12/21-can get in/out car comfortably if do the right way, bed mobility (rolling) painful, no issues w/over obstacles; step to the side uncomfortable; strength improved LTG Duration 02/23 One Impairment lacks HEP Short Term Goal (STG) Kylah will be instructed in HEP to improve right hip range of motion and strength to support therapy services provided in clinic. STG Duration achieved 12/21 Refrigeration Mechanic Goal (LTG) Kylah will be independent with HEP to improve BLE strength and to manage her symptoms long-term. 12/21-doing well w/HEP but did have questions & have some too painful LTG Duration 02/23 Assessment Summary Assessment Pt good feedback response to manual and strretching. Improved stacked core/ hip/ glut fac alignment with wt shift this tx review of HEP. Physical Therapy Plan Frequency and Duration Frequency of Treatment 2x/Week Duration of treatment (weeks) 8 Plan of Care Start Date 12/21/22 Plan of Care End Date 02/23/23 Therapeutic Interventions Therapeutic Interventions Balance Training,Gait Training ,Home Exercise Program,Joint Mobilizations,Manual Therapy, Neuromuscular Re-education, Orthotic/Prosthetic Management ,Patient/Caregiver Education, Self-Care/Home Management,Soft Tissue Mobilization,Taping, Therapeutic Activities, Therapeutic Exercises Modalities Cold Pack/Ice Massage,Electric Stimulation,Hot Packs, Infrared Therapy,Iontophoresis ,Traction- Mechanical, Ultrasound Next Visit Focus/Plan Next Note Type Treatment Note Next Visit Plan Recheck body mechanics as needed for yard work, review wt shift into RLE and SLS. POC: focus on manual to dec pain and improve ROM; work on seated and standing mobility for posture-manual focus
--- NOTE | 2023-02-08 18:14 | PT.OTN ---
Current Diagnoses Pain in right leg (02/08/23) Difficulty in walking, not elsewhere classified (02/08/23) Physical Therapy Treatment Note PT-OP-A Visit Information Start: 09/19/22 15:17 Freq: Status: Active Protocol: Document 02/08/23 16:44 [facility] (Rec: 02/08/23 18:14 [facility] [id number]) Out-Patient Physical Therapy Visit Information Visit Information Visit Type Treatment Note Visit Note 03/07 Visit Start Time 13:38 Visit Stop Time 14:20 Total Visit Minutes 42 Visit Number 23 Number of PICTURE ENGRAVER Visits 0 PT-OP-B Current Condition Start: 09/19/22 15:17 Freq: Status: Active Protocol: Document 10/13/22 10:33 SAK (Rec: 10/13/22 11:21 SAK [id number]) Current Condition History of Current Condition Onset Date May 2022 Current Complaints sudden onset R groin and hip pain History of Current Condition Kylah woke up with sudden onset sharp pain in her right groin on 06/07/22. She also had some right sided low back pain and lateral hip pain. She went to the [facility] who sent her to ED. X-ray was negative for fracture. She was sent home with hydrocodone. She took some but did not all. She was diagnosed with rheumatoid arthritis in April. Due to taking methotrexate, she is cautious about taking other medications. She isn't sure whether or not methotrexate has made any difference but it has not been four months yet and her triple valve mechanic suggested it could take at least four months to notice changes. Pt saw her PCP a week later with no change in pain symptoms and physician ordered MRI. MRI showed adductor strains and degenerative changes in both hips and pubic symphysis (see below). At this time, Kylah notices any movement of the leg toward the side and single leg stance on the right is painful. Hip flexion is painful. Back pain now comes and goes and she does not notice any particular pattern. She notes that she does have significant left knee OA and she takes voltaren for relief. Pt does express some concern for her balance. She denies falls but notices that she has trouble walking a straight line. Prior Treatments and Tests 06/14/22 MRI R femur: 1. Low- grade muscle strains of the proximal adductor musculature adjacent to the pubic bone. 2. Degenerative changes in the bilateral hips and pubic symphysis. 3. Mild proximal right hamstring tendinosis. 06/14/22 MRI R hip: 1. Muscular edema within the right adductor brevis and longus muscles adjacent to the pubic symphysis as well as the obturator externus muscle and the proximal right gluteus minimus muscle is consistent with low-grade muscle strains. 2. Moderate right hip osteoarthrosis with grade 2-3 chondromalacia, subchondral cystic changes and edema, and marginal osteophyte formation. Diffuse labral degeneration. 3. Degenerative changes also seen in the pubic symphysis, left hip, bilateral sacroiliac joints, and lumbar spine.4. Mild proximal hamstring tendinosis. PT-OP-C Subjective Start: 09/19/22 15:17 Freq: Status: Active Protocol: Document 02/08/23 16:44 LR (Rec: 02/08/23 18:14 [facility] [id number]) OP-PT Subjective Patient Comments Patient Comments pt reports she has less pain stepping lat but did note some pain getting into car when separates her legs. difficulty stepping down w/RLE back w/ down step ladder. Hard to maintain posture at end of day PT-OP-D Balance Start: 09/19/22 15:17 Freq: Status: Active Protocol: Document 12/21/22 16:54 [facility] (Rec: 12/21/22 18:12 [facility] [id number]) Balance Tests Single Limb Standing Single Limb- Right >30 sec w/minor shear Single Limb- Left >30 sec PT-OP-E Functional Tests Start: 09/19/22 15:17 Freq: Status: Active Protocol: Document 12/21/22 16:54 [facility] (Rec: 12/21/22 18:12 [facility] [id number]) Functional Tests Dynamic Gait Index (DGI) Score PT-OP-F Manual Assessment Start: 09/19/22 15:17 Freq: Status: Active Protocol: Document 09/22/22 09:45 AW (Rec: 09/22/22 10:13 AW [id number]) Manual Assessments Soft Tissue Assessment Soft Tissue Mobility Assessment Tender to palpation with moderate pressure at right proximal adductors and pubic symphysis. Tender to palpation at distal right iliopsoas. Pt reports pain with pressure just posterior to right greater trochanter. Tightness noted along bilateral TFL/ITB. PT-OP-G Mobility & Gait Start: 09/19/22 15:17 Freq: Status: Active Protocol: Document 09/22/22 09:45 AW (Rec: 09/22/22 10:13 AW [id number]) OP Mobility Evaluation Bed Mobility Supine to and from Sit Difficult to lift right leg onto treatment table. Transfers Sit to Stand Able without UE support from standard height chair. Functional Movements Squats Pt states unable due to chronic left knee pain OP Gait Assessment Comments Gait Comments Gait is notable to WBOS with slight genu valgus bilaterally . Pt walks with trunk forward/ flexed at hips with limited hip extension. She has fair heelstrike at initial contact but poor pushoff bilaterally. Path deviation is noted with no obvious directional preference. PT-OP-H Neuro Start: 09/19/22 15:17 Freq: Status: Active Protocol: Document 09/22/22 09:45 AW (Rec: 09/22/22 10:21 AW [id number]) Sensation Evaluation Gross Sensation Gross Sensation WNL PT-OP-J Posture/Palpation/Skin Start: 09/19/22 15:17 Freq: Status: Active Protocol: Document 09/22/22 09:45 AW (Rec: 09/22/22 10:21 AW [id number]) Posture Evaluation Comments Posture Comments Pt stands with weight shifted toward left, slight genu valgus bilaterally. Arches are high bilaterally. PT-OP-K Range of Motion Start: 09/19/22 15:17 Freq: Status: Active Protocol: Document 09/22/22 09:45 AW (Rec: 09/22/22 10:21 AW [id number]) Hip Goniometric Range of Motion Hip right Abduction 40 Comments End-range hip flexion is painful. Pt avoids hip extension due to pain. IR:ER ration is <1:2 with pain reported at both end ranges. Functionally, pt has difficulty initiating SLR. Passively, there is no hamstring restriction noted on either side in passive SLR. left Hip ROM WFL Yes Abduction 50 Comments All ROM WLF except extension. Pt poorly tolerates position for assessment but extension is certainly lacking in gait. IR:ER ration ~1:3 Hip ROM Limitations Hip ROM Limitations Pain PT-OP-M Strength Start: 09/19/22 15:17 Freq: Status: Active Protocol: Document 04/25/23 16:54 [facility] (Rec: 12/21/22 18:12 [facility] [id number]) Hip Strength Hip Manual Muscle Testing Right Flexion (L2) 4+ Good+ Extension (S1) 4 Good Abduction 4- Good- Adduction 4+ Good+ External Rotation 4 Good Internal Rotation 4+ Good+ Left Flexion (L2) 4+ Good+ Extension (S1) 4+ Good+ Abduction 4+ Good+ Adduction 5 Normal External Rotation 4+ Good+ Internal Rotation 5 Normal Knee Strength Knee Manual Muscle Testing bilateral Flexion (S2) 5 Normal Extension (L3) 5 Normal Ankle/Foot Strength Ankle and Foot Manual Muscle Testing bilateral Dorsiflexion (L4) 5 Normal Plantarflexion (S1) 5 Normal Comments 20 heel raises PT-OP-Q Treatments Start: 09/19/22 15:17 Freq: Status: Active Protocol: Document 02/08/23 16:44 [facility] (Rec: 02/08/23 18:14 [facility] [id number]) Therapeutic Exercises Supine Exercises resisted clam Supine Exercise Name AROM r feldenkris free the ball (onlly neutral position) Reps/Minutes 20 Sitting Exercises axial elongation Sitting Exercise Name attempted w/band but pt unable so no band Reps/Minutes 6 min Standing Exercises hip hike Side bilateral Equipment Used rail on step Reps/Minutes 15 Comments cues for no back ext Manual Therapy Treatment Soft Tissue Mobilization adductors, quad, hip flexors Body Location R add, iliacus Mobilization Type Myofascial Release,Strumming, Sustained Pressure Comments in flex abd ER position Joint Mobilizations thoracic Comments T1-3 UPA L FM innominate Comments R ischial tub lat w/flex abd FM PT-OP-T Assessment and Plan Start: 09/19/22 15:17 Freq: Status: Active Protocol: Document 02/08/23 16:44 [facility] (Rec: 02/08/23 18:14 [facility] [id number]) Physical Therapy Assessment Goals activities Short Term Goal (STG) Pt will be able to do lat stepping w/o inc pain 01/13/23: progressing: reports better, little R hip naggy but not pain. STG Duration 01/10/23 progressing 01/13/23 [facility] Goal (LTG) Pt will be able to roll in bed w/o inc pain. 01/13/23: States R hip pain still persists. LTG Duration 02/10 continues 01/13/23 Three Impairment gait Short Term Goal (STG) Pt will walk 30 minutes on level surface without increase in baseline pain. STG Duration achieved 12/21 [facility] Goal (LTG) Pt will walk [address] [place] [address] without increase in baseline pain. 12/21-has done paved hills but not any forest d/t mud 01/13/23: progressing: lately able walk 15 min out/back but not over roots more just uneven ground. LTG Duration 02/23 Two Impairment pain Short Term Goal (STG) Kylah will report average numeric pain rating in her right groin/hip of 4/10 or less over a one-week period. 12/21-4/10 achy but up to 6-7/ 10 w/activities STG Duration 01/15 Engineering Operations Leader Goal (LTG) Kylah will improve hip flexion MMT to 4+/5 or greater for greater ease with bed mobility, car transfers, and stepping over obstacles. 12/21-can get in/out car comfortably if do the right way, bed mobility (rolling) painful, no issues w/over obstacles; step to the side uncomfortable; strength improved LTG Duration 02/23 One Impairment lacks HEP Short Term Goal (STG) Kylah will be instructed in HEP to improve right hip range of motion and strength to support therapy services provided in clinic. STG Duration achieved 12/21 [facility] Goal (LTG) Kylah will be independent with HEP to improve BLE strength and to manage her symptoms long-term. 12/21-doing well w/HEP but did have questions & have some too painful LTG Duration 02/23 Assessment Summary Assessment Pt had limitation w/step ladder likely d/t L knee control and stability. She has dec hip stabiltyo n this side and IR LE and has dec control w/step back. Pt did improve ROM after manual to better felx w/abd. Improved abilityt o sit up right and stand upright to access glutes after manual to tspine Physical Therapy Plan Frequency and Duration Frequency of Treatment 2x/Week Duration of treatment (weeks) 8 Plan of Care Start Date 12/21/22 Plan of Care End Date 02/23/23 Next Visit Focus/Plan Next Note Type Treatment Note Next Visit Plan review ron free the ball and hip hikes on step; work on mobility to cont to dc pt pain
--- NOTE | 2023-02-11 13:32 | PT.OTN ---
Current Diagnoses Pain in right leg (02/11/23) Difficulty in walking, not elsewhere classified (02/11/23) Physical Therapy Treatment Note PT-OP-A Visit Information Start: 09/19/22 15:17 Freq: Status: Active Protocol: Document 02/11/23 12:48 SP (Rec: 02/11/23 13:34 SP [id number]) Out-Patient Physical Therapy Visit Information Visit Information Visit Type Treatment Note Visit Note 04/07 Visit Start Time 12:48 Visit Stop Time 13:32 Total Visit Minutes 44 Visit Number 24 Number of COMMERCIAL FISHERMAN Visits 1 Evaluation Information Evaluation Date 09/22/22 PT-OP-B Current Condition Start: 09/19/22 15:17 Freq: Status: Active Protocol: Document 10/13/22 10:33 SAK (Rec: 10/13/22 11:21 SAK [id number]) Current Condition History of Current Condition Onset Date May 2022 Current Complaints sudden onset R groin and hip pain History of Current Condition Kyalh woke up with sudden onset sharp pain in her right groin on 06/07/22. She also had some right sided low back pain and lateral hip pain. She went to the [facility] who sent her to ED. X-ray was negative for fracture. She was sent home with hydrocodone. She took some but did not all. She was diagnosed with rheumatoid arthritis in April. Due to taking methotrexate, she is cautious about taking other medications. She isn't sure whether or not methotrexate has made any difference but it has not been four months yet and her senior php software developer suggested it could take at least four months to notice changes. Pt saw her PCP a week later with no change in pain symptoms and physician ordered MRI. MRI showed adductor strains and degenerative changes in both hips and pubic symphysis (see below). At this time, Kylah notices any movement of the leg toward the side and single leg stance on the right is painful. Hip flexion is painful. Back pain now comes and goes and she does not notice any particular pattern. She notes that she does have significant left knee OA and she takes voltaren for relief. Pt does express some concern for her balance. She denies falls but notices that she has trouble walking a straight line. Prior Treatments and Tests 06/14/22 MRI R femur: 1. Low- grade muscle strains of the proximal adductor musculature adjacent to the pubic bone. 2. Degenerative changes in the bilateral hips and pubic symphysis. 3. Mild proximal right hamstring tendinosis. 06/14/22 MRI R hip: 1. Muscular edema within the right adductor brevis and longus muscles adjacent to the pubic symphysis as well as the obturator externus muscle and the proximal right gluteus minimus muscle is consistent with low-grade muscle strains. 2. Moderate right hip osteoarthrosis with grade 2-3 chondromalacia, subchondral cystic changes and edema, and marginal osteophyte formation. Diffuse labral degeneration. 3. Degenerative changes also seen in the pubic symphysis, left hip, bilateral sacroiliac joints, and lumbar spine.4. Mild proximal hamstring tendinosis. PT-OP-C Subjective Start: 09/19/22 15:17 Freq: Status: Active Protocol: Document 02/11/23 12:48 SP (Rec: 02/11/23 13:34 SP [id number]) OP-PT Subjective Patient Comments Patient Comments Pt reports feels doing really well and almost ready to continue on own, pleased with gains has made. PT-OP-D Balance Start: 09/19/22 15:17 Freq: Status: Active Protocol: Document 12/21/22 16:54 LR (Rec: 12/21/22 18:12 [facility] [id number]) Balance Tests Single Limb Standing Single Limb- Right >30 sec w/minor shear Single Limb- Left >30 sec PT-OP-E Functional Tests Start: 09/19/22 15:17 Freq: Status: Active Protocol: Document 12/21/22 16:54 LR (Rec: 12/21/22 18:12 [facility] [id number]) Functional Tests Dynamic Gait Index (DGI) Score PT-OP-F Manual Assessment Start: 09/19/22 15:17 Freq: Status: Active Protocol: Document 09/22/22 09:45 AW (Rec: 09/22/22 10:13 AW [id number]) Manual Assessments Soft Tissue Assessment Soft Tissue Mobility Assessment Tender to palpation with moderate pressure at right proximal adductors and pubic symphysis. Tender to palpation at distal right iliopsoas. Pt reports pain with pressure just posterior to right greater trochanter. Tightness noted along bilateral TFL/ITB. PT-OP-G Mobility & Gait Start: 09/19/22 15:17 Freq: Status: Active Protocol: Document 09/22/22 09:45 AW (Rec: 09/22/22 10:13 AW [id number]) OP Mobility Evaluation Bed Mobility Supine to and from Sit Difficult to lift right leg onto treatment table. Transfers Sit to Stand Able without UE support from standard height chair. Functional Movements Squats Pt states unable due to chronic left knee pain OP Gait Assessment Comments Gait Comments Gait is notable to WBOS with slight genu valgus bilaterally . Pt walks with trunk forward/ flexed at hips with limited hip extension. She has fair heelstrike at initial contact but poor pushoff bilaterally. Path deviation is noted with no obvious directional preference. PT-OP-H Neuro Start: 09/19/22 15:17 Freq: Status: Active Protocol: Document 09/22/22 09:45 AW (Rec: 09/22/22 10:21 AW [id number]) Sensation Evaluation Gross Sensation Gross Sensation WNL PT-OP-J Posture/Palpation/Skin Start: 09/19/22 15:17 Freq: Status: Active Protocol: Document 09/22/22 09:45 AW (Rec: 09/22/22 10:21 AW [id number]) Posture Evaluation Comments Posture Comments Pt stands with weight shifted toward left, slight genu valgus bilaterally. Arches are high bilaterally. PT-OP-K Range of Motion Start: 09/19/22 15:17 Freq: Status: Active Protocol: Document 09/22/22 09:45 AW (Rec: 09/22/22 10:21 AW [id number]) Hip Goniometric Range of Motion Hip right Abduction 40 Comments End-range hip flexion is painful. Pt avoids hip extension due to pain. IR:ER ration is <1:2 with pain reported at both end ranges. Functionally, pt has difficulty initiating SLR. Passively, there is no hamstring restriction noted on either side in passive SLR. left Hip ROM WFL Yes Abduction 50 Comments All ROM WLF except extension. Pt poorly tolerates position for assessment but extension is certainly lacking in gait. IR:ER ration ~1:3 Hip ROM Limitations Hip ROM Limitations Pain PT-OP-M Strength Start: 09/19/22 15:17 Freq: Status: Active Protocol: Document 12/21/22 16:54 [facility] (Rec: 12/21/22 18:12 [facility] [id number]) Hip Strength Hip Manual Muscle Testing Right Flexion (L2) 4+ Good+ Extension (S1) 4 Good Abduction 4- Good- Adduction 4+ Good+ External Rotation 4 Good Internal Rotation 4+ Good+ Left Flexion (L2) 4+ Good+ Extension (S1) 4+ Good+ Abduction 4+ Good+ Adduction 5 Normal External Rotation 4+ Good+ Internal Rotation 5 Normal Knee Strength Knee Manual Muscle Testing bilateral Flexion (S2) 5 Normal Extension (L3) 5 Normal Ankle/Foot Strength Ankle and Foot Manual Muscle Testing bilateral Dorsiflexion (L4) 5 Normal Plantarflexion (S1) 5 Normal Comments 20 heel raises PT-OP-Q Treatments Start: 09/19/22 15:17 Freq: Status: Active Protocol: Document 02/11/23 12:48 SP (Rec: 02/11/23 13:34 SP [id number]) Therapeutic Exercises Supine Exercises bridges with hip add Supine Exercise Name HEP reviewed Equipment Used hold ball between B knees Reps/Minutes 10 SH x8-10 resisted clam Supine Exercise Name AROM r feldenkris free the ball (onlly neutral position) Reps/Minutes 20 Comments controlled in/out quick pacing . Standing Exercises step up Side bilateral Resistance BOSU, rail support light 1 UE Reps/Minutes 2x10 each LE Comments good quad and glut fac over stance LE Manual Therapy Treatment Joint Mobilizations hip Joint R inferior glide and posterolateral (piriformis position) Direction posterolateral Grade II Body Position Hooklying Comments manual w/ strap, good gentle stretch response within R>L hip j t. Ed and set up and proper form with HO. Neuro Re-Education Treatment Balance Activities uneven hurdles Details 6 hurdles, oval foam, 1 pod Equipment near rail Comments receiprocal stepping initially floor, good stability, added foam and pods with cues for slower pacing/elongation/core fac/SLS stab before opp LE advancement and foot clearance able to complete light contact therapist at pt elbow, Progressed self no added support with trunk sways but no LOB. PT-OP-T Assessment and Plan Start: 09/19/22 15:17 Freq: Status: Active Protocol: Document 02/11/23 12:48 SP (Rec: 02/11/23 13:34 SP [id number]) Physical Therapy Assessment Goals activities Short Term Goal (STG) Pt will be able to do lat stepping w/o inc pain 01/13/23: progressing: reports better, little R hip naggy but not pain. 02/11/23: GOAL MET: just lateral side stepping painfree , if diagonal and to big of step does get discomfort. STG Duration 01/10/23 GOAL MET: 02/11/23 [facility] Goal (LTG) Pt will be able to roll in bed w/o inc pain. 01/13/23: States R hip pain still persists. 02/11/23: GOAL MET: She states lateral bridge/scoot technique doing well, doesn't really roll per say. LTG Duration 02/10 GOAL MET 02/11/23 Three Impairment gait Short Term Goal (STG) Pt will walk 30 minutes on level surface without increase in baseline pain. STG Duration achieved 12/21 [facility] Goal (LTG) Pt will walk [address] without increase in baseline pain. 12/21-has done paved hills but not any forest d/t mud 01/13/23: progressing: lately able walk 15 min out/back but not over roots more just uneven ground. 02/11/23: Progressing: states she is walking alot in yard and doing fine, but hasn't hike trails yet. LTG Duration 02/23 progressing 02/11/23 Two Impairment pain Short Term Goal (STG) Kylah will report average numeric pain rating in her right groin/hip of 4/10 or less over a one-week period. 12/21-4/10 achy but up to 6-7/ 10 w/activities 02/11/23: Progressing: R tania still there at times diagonal step advancement and lift RLE in car still consistantly. Manageable if lifts BLE in together. STG Duration 01/15 progressing 02/11/23 Clinical Academic Allergist Goal (LTG) Kylah will improve hip flexion MMT to 4+/5 or greater for greater ease with bed mobility, car transfers, and stepping over obstacles. 12/21-can get in/out car comfortably if do the right way, bed mobility (rolling) painful, no issues w/over obstacles; step to the side uncomfortable; strength improved LTG Duration 02/23 One Impairment lacks HEP Short Term Goal (STG) Kylah will be instructed in HEP to improve right hip range of motion and strength to support therapy services provided in clinic. STG Duration achieved 12/21 Clinical Academic Allergist Goal (LTG) Kylah will be independent with HEP to improve BLE strength and to manage her symptoms long-term. 12/21-doing well w/HEP but did have questions & have some too painful 02/11/23: B supine clam AROM, adduction bridge holds, LTG Duration 02/23 updated 02/01/23 Assessment Summary Assessment Pt reports less R anterior hip tension during ther ex and balance post manual mob and ed for self set up/performance and provided HO carryover home . Physical Therapy Plan Frequency and Duration Frequency of Treatment 2x/Week Duration of treatment (weeks) 8 Plan of Care Start Date 12/21/22 Plan of Care End Date 02/23/23 Therapeutic Interventions Therapeutic Interventions Balance Training,Gait Training ,Home Exercise Program,Joint Mobilizations,Manual Therapy, Neuromuscular Re-education, Orthotic/Prosthetic Management ,Patient/Caregiver Education, Self-Care/Home Management,Soft Tissue Mobilization,Taping, Therapeutic Activities, Therapeutic Exercises Modalities Cold Pack/Ice Massage,Electric Stimulation,Hot Packs, Infrared Therapy,Iontophoresis ,Traction- Mechanical, Ultrasound Next Visit Focus/Plan Next Note Type Discharge Summary Next Visit Plan Next appt last, PT review HEP, activities and self STMs to continue on own, complete DC. POC: ron free the ball and hip hikes on step; work on mobility to cont to dc pt pain
--- NOTE | 2023-02-16 13:41 | PT.OTN ---
Current Diagnoses Pain in right leg (02/16/23) Difficulty in walking, not elsewhere classified (02/16/23) Physical Therapy Treatment Note PT-OP-A Visit Information Start: 09/19/22 15:17 Freq: Status: Active Protocol: Document 02/16/23 12:46 [facility] (Rec: 02/16/23 12:55 [facility] [id number]) Out-Patient Physical Therapy Visit Information Visit Information Visit Type Discharge Summary Visit Start Time 12:47 Visit Stop Time 13:30 Total Visit Minutes 43 Number of HAT BLOCK BENCH HAND Visits 0 PT-OP-B Current Condition Start: 09/19/22 15:17 Freq: Status: Active Protocol: Document 10/13/22 10:33 SAK (Rec: 10/13/22 11:21 SAK [id number]) Current Condition History of Current Condition Onset Date May 2022 Current Complaints sudden onset R groin and hip pain History of Current Condition Kylah woke up with sudden onset sharp pain in her right groin on 06/07/22. She also had some right sided low back pain and lateral hip pain. She went to the [facility] who sent her to ED. X-ray was negative for fracture. She was sent home with hydrocodone. She took some but did not all. She was diagnosed with rheumatoid arthritis in April. Due to taking methotrexate, she is cautious about taking other medications. She isn't sure whether or not methotrexate has made any difference but it has not been four months yet and her gluing crew leader suggested it could take at least four months to notice changes. Pt saw her PCP a week later with no change in pain symptoms and physician ordered MRI. MRI showed adductor strains and degenerative changes in both hips and pubic symphysis (see below). At this time, Kylah notices any movement of the leg toward the side and single leg stance on the right is painful. Hip flexion is painful. Back pain now comes and goes and she does not notice any particular pattern. She notes that she does have significant left knee OA and she takes voltaren for relief. Pt does express some concern for her balance. She denies falls but notices that she has trouble walking a straight line. Prior Treatments and Tests 06/14/22 MRI R femur: 1. Low- grade muscle strains of the proximal adductor musculature adjacent to the pubic bone. 2. Degenerative changes in the bilateral hips and pubic symphysis. 3. Mild proximal right hamstring tendinosis. 06/14/22 MRI R hip: 1. Muscular edema within the right adductor brevis and longus muscles adjacent to the pubic symphysis as well as the obturator externus muscle and the proximal right gluteus minimus muscle is consistent with low-grade muscle strains. 2. Moderate right hip osteoarthrosis with grade 2-3 chondromalacia, subchondral cystic changes and edema, and marginal osteophyte formation. Diffuse labral degeneration. 3. Degenerative changes also seen in the pubic symphysis, left hip, bilateral sacroiliac joints, and lumbar spine.4. Mild proximal hamstring tendinosis. PT-OP-C Subjective Start: 09/19/22 15:17 Freq: Status: Active Protocol: Document 02/16/23 12:46 [facility] (Rec: 02/16/23 12:55 [facility] [id number]) OP-PT Subjective Patient Comments Patient Comments pt reports she is a little sore in her hip today unsure why PT-OP-D Balance Start: 09/19/22 15:17 Freq: Status: Active Protocol: Document 12/21/22 16:54 LR (Rec: 12/21/22 18:12 [facility] [id number]) Balance Tests Single Limb Standing Single Limb- Right >30 sec w/minor shear Single Limb- Left >30 sec PT-OP-E Functional Tests Start: 09/19/22 15:17 Freq: Status: Active Protocol: Document 12/21/22 16:54 [facility] (Rec: 12/21/22 18:12 [facility] [id number]) Functional Tests Dynamic Gait Index (DGI) Score 22/24 PT-OP-F Manual Assessment Start: 09/19/22 15:17 Freq: Status: Active Protocol: Document 09/22/22 09:45 AW (Rec: 09/22/22 10:13 AW [id number]) Manual Assessments Soft Tissue Assessment Soft Tissue Mobility Assessment Tender to palpation with moderate pressure at right proximal adductors and pubic symphysis. Tender to palpation at distal right iliopsoas. Pt reports pain with pressure just posterior to right greater trochanter. Tightness noted along bilateral TFL/ITB. PT-OP-G Mobility & Gait Start: 09/19/22 15:17 Freq: Status: Active Protocol: Document 09/22/22 09:45 AW (Rec: 09/22/22 10:13 AW [id number]) OP Mobility Evaluation Bed Mobility Supine to and from Sit Difficult to lift right leg onto treatment table. Transfers Sit to Stand Able without UE support from standard height chair. Functional Movements Squats Pt states unable due to chronic left knee pain OP Gait Assessment Comments Gait Comments Gait is notable to WBOS with slight genu valgus bilaterally . Pt walks with trunk forward/ flexed at hips with limited hip extension. She has fair heelstrike at initial contact but poor pushoff bilaterally. Path deviation is noted with no obvious directional preference. PT-OP-H Neuro Start: 09/19/22 15:17 Freq: Status: Active Protocol: Document 09/22/22 09:45 AW (Rec: 09/22/22 10:21 AW [id number]) Sensation Evaluation Gross Sensation Gross Sensation WNL PT-OP-J Posture/Palpation/Skin Start: 09/19/22 15:17 Freq: Status: Active Protocol: Document 09/22/22 09:45 AW (Rec: 09/22/22 10:21 AW [id number]) Posture Evaluation Comments Posture Comments Pt stands with weight shifted toward left, slight genu valgus bilaterally. Arches are high bilaterally. PT-OP-K Range of Motion Start: 09/19/22 15:17 Freq: Status: Active Protocol: Document 09/22/22 09:45 AW (Rec: 09/22/22 10:21 AW [id number]) Hip Goniometric Range of Motion Hip right Abduction 40 Comments End-range hip flexion is painful. Pt avoids hip extension due to pain. IR:ER ration is <1:2 with pain reported at both end ranges. Functionally, pt has difficulty initiating SLR. Passively, there is no hamstring restriction noted on either side in passive SLR. left Hip ROM WFL Yes Abduction 50 Comments All ROM WLF except extension. Pt poorly tolerates position for assessment but extension is certainly lacking in gait. IR:ER ration ~1:3 Hip ROM Limitations Hip ROM Limitations Pain PT-OP-M Strength Start: 09/19/22 15:17 Freq: Status: Active Protocol: Document 02/16/23 12:46 [facility] (Rec: 02/16/23 13:05 [facility] [id number]) Hip Strength Hip Manual Muscle Testing Right Flexion (L2) 4+ Good+ Extension (S1) 5 Normal Abduction 5 Normal Adduction 4+ Good+ External Rotation 4 Good Internal Rotation 5 Normal Left Flexion (L2) 5 Normal Extension (S1) 5 Normal Abduction 5 Normal Adduction 5 Normal External Rotation 4+ Good+ Internal Rotation 5 Normal Knee Strength Knee Manual Muscle Testing bilateral Flexion (S2) 5 Normal Extension (L3) 5 Normal Ankle/Foot Strength Ankle and Foot Manual Muscle Testing bilateral Dorsiflexion (L4) 5 Normal Plantarflexion (S1) 5 Normal Comments 20 heel raises PT-OP-Q Treatments Start: 09/19/22 15:17 Freq: Status: Active Protocol: Document 02/16/23 12:46 [facility] (Rec: 02/16/23 12:55 [facility] [id number]) Therapeutic Exercises Supine Exercises isometric Supine Exercise Name DL flex Side bilateral Reps/Minutes 30 sec Sidelying Exercises add Sidelying Exercise Name s/l Side bilateral Reps/Minutes 10 Sitting Exercises axial elongation Sitting Exercise Name no band Reps/Minutes 5 Standing Exercises hip hike Side bilateral Equipment Used rail on step Reps/Minutes 10 Comments cues for no back ext Other Exercises lunge Other Exercise Name diagonal w/counter Side bilateral Reps/Minutes 10 ea Manual Therapy Treatment Soft Tissue Mobilization piriformis Body Location R Mobilization Type Sustained Pressure Comments w/AAROm hip IR/ER adductors, quad, hip flexors Body Location R add & hip flexor Comments w/ER & flex Joint Mobilizations innominate Comments supine ER FM R Self-Care/Home Management Treatment Education Other Education 8 min: discussion of HEP and adjusting some of HEP. edu exercises do not need to be done daily but a few days a week and finding the ones that make positive change so she can work on those on busy days . Edu w/supine hip ER 'free the ball exercsie to stay in comfortable range but some days will be different then others PT-OP-T Assessment and Plan Start: 09/19/22 15:17 Freq: Status: Active Protocol: Document 02/16/23 12:46 [facility] (Rec: 02/16/23 12:55 [facility] [id number]) Physical Therapy Assessment Goals activities Short Term Goal (STG) Pt will be able to do lat stepping w/o inc pain 01/13/23: progressing: reports better, little R hip naggy but not pain. 02/11/23: GOAL MET: just lateral side stepping painfree , if diagonal and to big of step does get discomfort. STG Duration 01/10/23 GOAL MET: 02/11/23 Longterm Goal (LTG) Pt will be able to roll in bed w/o inc pain. 01/13/23: States R hip pain still persists. 02/11/23: GOAL MET: She states lateral bridge/scoot technique doing well, doesn't really roll per say. LTG Duration 02/10 GOAL MET 02/11/23 Three Impairment gait Short Term Goal (STG) Pt will walk 30 minutes on level surface without increase in baseline pain. STG Duration achieved 12/21 Senior Clerk Goal (LTG) Pt will walk [address] without increase in baseline pain. 12/21-has done paved hills but not any forest d/t mud 01/13/23: progressing: lately able walk 15 min out/back but not over roots more just uneven ground. 02/11/23: Progressing: states she is walking alot in yard and doing fine, but hasn't hike trails yet. LTG Duration 02/23 progressing 02/11/23 Two Impairment pain Short Term Goal (STG) Kylah will report average numeric pain rating in her right groin/hip of 4/10 or less over a one-week period. 12/21-4/10 achy but up to 6-7/ 10 w/activities 02/11/23: Progressing: R tania still there at times diagonal step advancement and lift RLE in car still consistantly. Manageable if lifts BLE in together. STG Duration at most 4-5/10 and doesn't last; achey at end of day Longterm Goal (LTG) Kylah will improve hip flexion MMT to 4+/5 or greater for greater ease with bed mobility, car transfers, and stepping over obstacles. 12/21-can get in/out car comfortably if do the right way, bed mobility (rolling) painful, no issues w/over obstacles; step to the side uncomfortable; strength improved LTG Duration mostly achieved One Impairment lacks HEP Short Term Goal (STG) Kylah will be instructed in HEP to improve right hip range of motion and strength to support therapy services provided in clinic. STG Duration achieved 12/21 Senior Clerk Goal (LTG) Kylah will be independent with HEP to improve BLE strength and to manage her symptoms long-term. 12/21-doing well w/HEP but did have questions & have some too painful 02/11/23: B supine clam AROM, adduction bridge holds, LTG Duration achieved Assessment Summary Assessment Pt has made excellent progress w/PT and Physical Therapy Plan Discharge Physical Therapy Discharge Reasons Goals Met
== END 2023-02-17 11:38 | disposition home or self-care (01) ==
LOC: PHYS 12:45
PROVIDERS: Family Provider Internal Medicine; PCP Internal Medicine; Referring Provider Internal Medicine; Visit Provider Internal Medicine
DX: M79.604 Pain in right leg (principal); R26.2 Difficulty in walking, not elsewhere classified
CPT/HCPCS: 97110; 97112; 97116; 97140; 97161; 97535

== ENCOUNTER → 2023-04-06 13:35 | Outpatient (CLI) | payer MEDICARE, OTHER, SELFPAY ==
[2023-04-06 15:14] LABS: Add Manual Diff / Slide Review NO; Basophils Absolute Auto 0 /uL (0-100); Basophils Percent Auto 0.6 % (0-2); Eosinophils Absolute Auto 100 /uL (0-450); Eosinophils Percent Auto 3.5 % (2-4); Hematocrit 35.3 % (36-46); Hemoglobin 11.9 g/dL (12.0-16.0); Lymphocytes Absolute Auto 1400 /uL (1100-4500); Lymphocytes Percent Auto 35.9 % (25-40); Mean Corpuscular HGB Conc 33.6 % (30-36); Mean Corpuscular Hemoglobin 34.3 PG (26-34); Monocytes Absolute Auto 400 /uL (0-900); Monocytes Percent Auto 10.9 % (3-14); Neutrophils Absolute Auto 2000 /uL (1500-7000); Neutrophils Percent Auto 49.1 % (50-75); Platelet Count 199 X10^3/uL (150-400); Red Blood Cell Count 3.46 X10^6/uL (4.0-5.2)
[2023-04-06 15:42] LABS: Alanine Aminotransferase 28 IU/L (<35); Albumin Globulin Ratio 1.5 (1.0-2.8); Alkaline Phosphatase 77 U/L (38-126); Aspartate Aminotransferase 36 IU/L (14-36); BUN Creatinine Ratio 18.8 (6-22); Bilirubin Total 0.3 mg/dL (0.2-1.3); Blood Urea Nitrogen 13 mg/dL (7-17); Calcium 9.1 mg/dL (8.4-10.2); Carbon Dioxide 31 mmol/L (22-32); Chloride 103 mmol/L (98-107); Estimated Glomerular Filt Rate > 60 mL/min (>60); Globulin 2.6 g/dL (1.7-4.1); Glucose 82 mg/dL (80-110); HEMOLYSIS < 15 (0-50); Potassium 3.7 mmol/L (3.4-5.1); Sodium 139 mmol/L (137-145); Total Protein 6.6 g/dL (6.3-8.2)
== END ==
PROVIDERS: Family Provider Internal Medicine; PCP Internal Medicine; Referring Provider Internal Medicine Rheumatology; Visit Provider Internal Medicine Rheumatology
DX: Z79.899 Other long term (current) drug therapy (principal); M05.79 Rheumatoid arthritis with rheumatoid factor of multiple sites without organ or systems involvement; R94.5 Abnormal results of liver function studies
CPT/HCPCS: 36415; 80053; 85025

== ENCOUNTER → 2023-05-10 09:57 | Outpatient (CLI) | payer MEDICARE, OTHER, SELFPAY ==
[2023-05-10 11:39] LABS: TSH w/ Reflex to FT4 0.28 uIU/mL (0.47-4.68)
[2023-05-10 11:46] LABS: Ferritin 69 ng/mL (11-264)
[2023-05-10 12:03] LABS: Free T4, Direct Thyroxine 1.43 ng/dL (0.78-2.19)
== END ==
PROVIDERS: Family Provider Internal Medicine; PCP Internal Medicine; Referring Provider Student in an Organized Health Care Education/Training Program; Visit Provider Student in an Organized Health Care Education/Training Program
DX: L65.9 Nonscarring hair loss, unspecified (principal)
CPT/HCPCS: 36415; 82728; 84439; 84443

== ENCOUNTER → 2023-06-23 12:02 | Outpatient (CLI) | payer MEDICARE, OTHER, SELFPAY ==
[2023-06-23 13:53] LABS: C-Reactive Protein Quant < 0.5 mg/dL (<1.0)
[2023-06-23 14:00] LABS: Erythrocyte Sedimentation Rate 12 MM/HR (0-20)
== END ==
PROVIDERS: Family Provider Internal Medicine; PCP Internal Medicine; Referring Provider Ophthalmology; Visit Provider Ophthalmology
DX: H53.9 Unspecified visual disturbance (principal)
CPT/HCPCS: 36415; 85651; 86140

== ENCOUNTER → 2023-06-30 12:30 | Outpatient (CLI) | payer MEDICARE, OTHER, SELFPAY ==
[2023-06-30 13:13] LABS: Add Manual Diff / Slide Review NO; Basophils Absolute Auto 0 /uL (0-100); Basophils Percent Auto 0.3 % (0-2); Eosinophils Absolute Auto 100 /uL (0-450); Eosinophils Percent Auto 2.7 % (2-4); Hematocrit 34.9 % (36-46); Hemoglobin 11.6 g/dL (12.0-16.0); Lymphocytes Absolute Auto 1600 /uL (1100-4500); Lymphocytes Percent Auto 31.5 % (25-40); Mean Corpuscular HGB Conc 33.2 % (30-36); Mean Corpuscular Hemoglobin 32.7 PG (26-34); Mean Corpuscular Volume 98.7 fL (80-100); Monocytes Absolute Auto 400 /uL (0-900); Monocytes Percent Auto 7.3 % (3-14); Neutrophils Absolute Auto 2900 /uL (1500-7000); Neutrophils Percent Auto 58.2 % (50-75); Platelet Count 221 X10^3/uL (150-400); Red Blood Cell Count 3.54 X10^6/uL (4.0-5.2); Red Cell Distribution Width 15.7 % (11.6-14.8)
[2023-06-30 13:37] LABS: Alanine Aminotransferase 25 IU/L (<35); Albumin 3.9 g/dL (3.5-5.0); Albumin Globulin Ratio 1.3 (1.0-2.8); Alkaline Phosphatase 79 U/L (38-126); Aspartate Aminotransferase 35 IU/L (14-36); BUN Creatinine Ratio 22.2 (6-22); Bilirubin Total 0.4 mg/dL (0.2-1.3); Blood Urea Nitrogen 14 mg/dL (7-17); Calcium 9.4 mg/dL (8.4-10.2); Carbon Dioxide 28 mmol/L (22-32); Chloride 105 mmol/L (98-107); Estimated Glomerular Filt Rate > 60 mL/min (>60); Glucose 80 mg/dL (80-110); HEMOLYSIS < 15 (0-50); Sodium 138 mmol/L (137-145); Total Protein 6.9 g/dL (6.3-8.2)
== END ==
PROVIDERS: Family Provider Internal Medicine; PCP Internal Medicine; Referring Provider Internal Medicine Rheumatology; Visit Provider Internal Medicine Rheumatology
DX: Z79.899 Other long term (current) drug therapy (principal); M05.79 Rheumatoid arthritis with rheumatoid factor of multiple sites without organ or systems involvement; R94.5 Abnormal results of liver function studies
CPT/HCPCS: 36415; 80053; 85025

== ENCOUNTER → 2023-08-18 10:30 | Outpatient (CLI) | payer MEDICARE, OTHER, SELFPAY ==
--- NOTE | 2023-08-18 10:32 | DI.RAD.S_ITS ---
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 COMPARISON: None. FINDINGS: Surgical changes and devices: None. Bones and chest wall: No fractures or dislocations. No suspicious bony lesions. Overlying soft tissues appear unremarkable. Lungs and pleura: No pleural effusions or pneumothorax. Lungs appear clear. Mediastinum: Mediastinal contours appear normal. Heart size is normal. IMPRESSION: No displaced rib fracture or pneumothorax. Dictated by: Galdino Cedillo M.D. on 08/18/2023 at 16:45 Approved by: Galdino Cedillo M.D. on 08/18/2023 at 16:49
== END ==
PROVIDERS: Family Provider Internal Medicine; PCP Internal Medicine; Referring Provider Student in an Organized Health Care Education/Training Program; Visit Provider Student in an Organized Health Care Education/Training Program
DX: R07.89 Other chest pain (principal); R07.81 Pleurodynia
CPT/HCPCS: 71101

== ENCOUNTER → 2023-09-21 13:38 | Outpatient (CLI) | payer MEDICARE, OTHER, SELFPAY ==
[2023-09-21 14:05] LABS: Add Manual Diff / Slide Review NO; Basophils Absolute Auto 0 /uL (0-100); Basophils Percent Auto 0.2 % (0-2); Eosinophils Absolute Auto 0 /uL (0-450); Eosinophils Percent Auto 0.1 % (2-4); Hematocrit 37.5 % (36-46); Hemoglobin 12.4 g/dL (12.0-16.0); Lymphocytes Absolute Auto 1700 /uL (1100-4500); Lymphocytes Percent Auto 30.6 % (25-40); Mean Corpuscular HGB Conc 33.2 % (30-36); Mean Corpuscular Hemoglobin 33.2 PG (26-34); Monocytes Absolute Auto 300 /uL (0-900); Monocytes Percent Auto 6.3 % (3-14); Neutrophils Absolute Auto 3400 /uL (1500-7000); Neutrophils Percent Auto 62.8 % (50-75); Platelet Count 207 X10^3/uL (150-400); Red Blood Cell Count 3.75 X10^6/uL (4.0-5.2); Red Cell Distribution Width 15.4 % (11.6-14.8); White Blood Cell Count 5.4 X10^3/uL (4.5-11.0)
[2023-09-21 15:26] LABS: Alanine Aminotransferase 25 IU/L (<35); Albumin 4.2 g/dL (3.5-5.0); Albumin Globulin Ratio 1.5 (1.0-2.8); Alkaline Phosphatase 90 U/L (38-126); Aspartate Aminotransferase 32 IU/L (14-36); BUN Creatinine Ratio 21.9 (6-22); Bilirubin Total 0.6 mg/dL (0.2-1.3); Blood Urea Nitrogen 14 mg/dL (7-17); Calcium 9.9 mg/dL (8.4-10.2); Carbon Dioxide 30 mmol/L (22-32); Chloride 103 mmol/L (98-107); Estimated Glomerular Filt Rate > 60 mL/min (>60); Globulin 2.8 g/dL (1.7-4.1); Glucose 81 mg/dL (80-110); HEMOLYSIS < 15 (0-50); Potassium 4.1 mmol/L (3.4-5.1); Sodium 139 mmol/L (137-145)
== END ==
LOC: LAB 13:41
PROVIDERS: Family Provider Internal Medicine; PCP Internal Medicine; Referring Provider Internal Medicine Rheumatology; Visit Provider Internal Medicine Rheumatology
DX: M05.79 Rheumatoid arthritis with rheumatoid factor of multiple sites without organ or systems involvement (principal); Z79.899 Other long term (current) drug therapy; R94.5 Abnormal results of liver function studies
CPT/HCPCS: 36415; 80053; 85025

== ENCOUNTER → 2023-10-04 15:07 | Outpatient (CLI) | payer MEDICARE, OTHER, SELFPAY ==
--- NOTE | 2023-10-04 | DI.MG.S_ITS ---
BILATERAL DIGITAL SCREENING MAMMOGRAM 3D/2D WITH CAD: 10/04/2023 CLINICAL: Routine screening. Comparison is made to exams dated: 09/28/2022 mammogram, 08/31/2022 mammogram, and 08/10/2021 mammogram - [facility]. There are scattered areas of fibroglandular density in both breasts (category b / 25%-50% glandular tissue). Current study was also evaluated with a Computer Aided Detection (CAD) system. No significant masses, calcifications, or other findings are seen in either breast. There has been no significant interval change. IMPRESSION: NEGATIVE There is no mammographic evidence of malignancy. A 1 year screening mammogram is recommended. Based on the Tyrer Cuzick model (a risk assessment model) the patient's lifetime risk is 3.3% and her 10 year risk is 2.7%. According to the ACR, ACS, and NCCN guidelines, an annual breast MRI exam along with mammogram is recommended if the patient's lifetime risk is 20% or greater. This exam was interpreted at Station ID: [id number]. NOTE: For mammograms, a report in lay terms will be sent to the patient. Approximately 15% of breast malignancies will not be visualized mammographically. In the management of a palpable breast mass, a negative mammogram must not discourage biopsy of a clinically suspicious lesion. Electronically Signed By: Donna trent/elis:10/05/2023 10:24:29 letter sent: Normal Exam ACR BI-RADS Category 1: Negative [id number]
== END ==
PROVIDERS: Family Provider Internal Medicine; PCP Internal Medicine; Referring Provider Internal Medicine; Visit Provider Internal Medicine
DX: Z12.31 Encounter for screening mammogram for malignant neoplasm of breast (principal); R92.323 Mammographic fibroglandular density, bilateral breasts
CPT/HCPCS: 77063; 77067

== ENCOUNTER → 2023-10-14 18:32 | Outpatient (CLI) | payer MEDICARE, OTHER, SELFPAY ==
--- NOTE | 2023-10-14 18:35 | DI.MRI.S_ITS ---
PROCEDURE: MR HEAD/BRAIN WO CON INDICATIONS: migraine TECHNIQUE: Non-contrast axial T1 spin echo, axial T2 fast spin echo, sagittal and axial FLAIR, coronal T2 fast spin echo, axial gradient echo, axial diffusion and ADC through the brain. COMPARISON: None. FINDINGS: Image quality: Excellent. CSF spaces: Ventricles appear symmetric in size and shape. Basal cisterns are patent. No extra-axial fluid collections. Brain: No intracranial bleeds or mass effects. There is cerebral volume loss for age. There are periventricular and deep white matter chronic small vessel ischemic changes. Brainstem appears normal. Diffusion-weighted images show no acute infarct. No chronic ischemic insults. Normal intravascular flow voids are present. Skull and face: Calvarial bone marrow is normal in signal. Orbits are normal. Sinuses: Sinuses and mastoids are clear. IMPRESSION: 1. No acute intracranial process. 2. Minimal atrophy and chronic microvascular ischemic changes. Dictated by: Silvia Granados M.D. on 10/17/2023 at 8:51 Approved by: Silvia Granados M.D. on 10/17/2023 at 8:54
== END ==
LOC: MRI 18:34
PROVIDERS: Family Provider Internal Medicine; PCP Internal Medicine; Referring Provider Internal Medicine; Visit Provider Internal Medicine
DX: G43.909 Migraine, unspecified, not intractable, without status migrainosus (principal)
CPT/HCPCS: 70551

== ENCOUNTER → 2024-02-07 12:11 | Outpatient (CLI) | payer MEDICARE, OTHER, SELFPAY ==
--- NOTE | 2024-02-07 | DI.RAD.S_ITS ---
PROCEDURE: XR WRIST LT 2V INDICATIONS: ARTHRITS TECHNIQUE: 2 views of the wrist were acquired. COMPARISON: [facility], CR, XR WRIST LT MIN 3V, 03/05/2022, 1:43. FINDINGS: Bones: No fractures or dislocations. Vkuo-yw-wcvzcvwi left wrist joint osteoarthritic changes are seen more notably involving 1st CMC joint and scaphoid trapezial joint. Finding has worsened since 2021 study. No suspicious bony lesions. Soft tissues: No suspicious soft tissue calcifications. IMPRESSION: Worsening left wrist joint osteoarthritis most notably involving 1st CMC joint and scaphoid trapezial joint as above. No fracture or dislocation. Dictated by: Christos Valencia M.D. on 02/07/2024 at 14:33 Approved by: Christos Valencia M.D. on 02/07/2024 at 14:36
--- NOTE | 2024-02-07 | DI.RAD.S_ITS ---
PROCEDURE: XR WRIST RT 2V INDICATIONS: CHECK ARTHRITIS TECHNIQUE: To views of the wrist were acquired. COMPARISON: [facility], CR, XR WRIST LT MIN 3V, 03/05/2022, 1:43. FINDINGS: Bones: No fractures or dislocations. Osteoarthritic changes are noted along radial aspect of right wrist most notably involving 1st CMC joint. No suspicious bony lesions. Soft tissues: No suspicious soft tissue calcifications. IMPRESSION: Twzl-zc-mkkqrjep right wrist joint osteoarthritis most notably involving 1st CMC joint. No fracture or dislocation. No gross bony erosive changes. No gross soft tissue abnormalities. Dictated by: Christos Valencia M.D. on 02/07/2024 at 14:29 Approved by: Christos Valencia M.D. on 02/07/2024 at 14:33
--- NOTE | 2024-02-07 12:14 | DI.RAD.S_ITS ---
PROCEDURE: XR SHOULDER LT MIN 2V INDICATIONS: left shoulder pain TECHNIQUE: 3 views of the shoulder were acquired. COMPARISON: None. FINDINGS: Bones: No fractures or dislocations. No suspicious bony lesions. Visualized ribs appear intact. Acromioclavicular joint space narrowing with osteophytosis. Soft tissues: No suspicious soft tissue calcifications. IMPRESSION: Moderate AC osteoarthritis. Dictated by: Stephen Jean-Baptiste M.D. on 02/07/2024 at 13:58 Approved by: Stephen Jean-Baptiste M.D. on 02/07/2024 at 13:58
--- NOTE | 2024-02-07 12:14 | DI.RAD.S_ITS ---
PROCEDURE: XR HAND RT MIN 3V INDICATIONS: rheumatoid arthritis TECHNIQUE: 3 views of the hand(s) acquired. COMPARISON: [facility], CR, XR HAND LT MIN 3V, 05/04/2022, 14:46. FINDINGS: Bones: No fractures or dislocations. Carpal bones are normally aligned. No suspicious bony lesions. Interphalangeal joint space narrowing with osteophytosis. 1st CMC joint space narrowing with associated osteophytosis and sclerosis. Soft tissues: No suspicious soft tissue calcifications. 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 Dictated by: Stephen Jean-Baptiste M.D. on 02/07/2024 at 15:07 Approved by: Stephen Jean-Baptiste M.D. on 02/07/2024 at 15:08
--- NOTE | 2024-02-07 12:14 | DI.RAD.S_ITS ---
PROCEDURE: XR HAND LT MIN 3V INDICATIONS: rheumatoid arthritis TECHNIQUE: 3 views of the hand(s) acquired. COMPARISON: [facility], CR, XR HAND LT MIN 3V, 05/04/2022, 14:46. FINDINGS: Bones: No fractures or dislocations. Carpal bones are normally aligned. No suspicious bony lesions. 1st CMC joint space narrowing with associated osteophytosis and sclerosis. Interphalangeal joint space narrowing with osteophytosis. Soft tissues: No suspicious soft tissue calcifications. 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 Dictated by: Stephen Jean-Baptiste M.D. on 02/07/2024 at 15:03 Approved by: Stephen Jean-Baptiste M.D. on 02/07/2024 at 15:07
== END ==
PROVIDERS: Family Provider Internal Medicine; PCP Internal Medicine; Referring Provider Nurse Practitioner Family; Visit Provider Nurse Practitioner Family
DX: M05.79 Rheumatoid arthritis with rheumatoid factor of multiple sites without organ or systems involvement (principal); M25.512 Pain in left shoulder; M19.012 Primary osteoarthritis, left shoulder; M18.0 Bilateral primary osteoarthritis of first carpometacarpal joints; M19.042 Primary osteoarthritis, left hand; M19.041 Primary osteoarthritis, right hand; M19.032 Primary osteoarthritis, left wrist; M19.031 Primary osteoarthritis, right wrist
CPT/HCPCS: 73030; 73100; 73130

== ENCOUNTER → 2024-07-05 10:48 | Outpatient (CLI) | payer MEDICARE, OTHER, SELFPAY ==
[2024-07-05 12:05] LABS: C-Reactive Protein Quant < 0.5 mg/dL (<1.0)
[2024-07-09 14:38] LABS: Albumin 3.8 g/dL (2.9-4.4); Alpha-1-Globulin 0.2 g/dL (0.0-0.4); Alpha-2-Globulin 0.6 g/dL (0.4-1.0); Globulin Total 2.8 g/dL (2.2-3.9); Protein, Total 6.6 g/dL (6.0-8.5)
== END ==
PROVIDERS: Family Provider Internal Medicine; PCP Family Medicine; Referring Provider Internal Medicine Rheumatology; Visit Provider Internal Medicine Rheumatology
DX: M05.79 Rheumatoid arthritis with rheumatoid factor of multiple sites without organ or systems involvement (principal); Z79.899 Other long term (current) drug therapy; M25.512 Pain in left shoulder; M35.01 Sjogren syndrome with keratoconjunctivitis
CPT/HCPCS: 36415; 84155; 84165; 86140

== ENCOUNTER → 2024-10-08 14:39 | Outpatient (CLI) | payer MEDICARE, OTHER, SELFPAY ==
--- NOTE | 2024-10-08 14:40 | DI.RAD.S_ITS ---
PROCEDURE: XR DEXA AXIAL SKELETON INDICATIONS: bone density screening COMPARISON: [facility], CR, XR DEXA AXIAL SKELETON, 09/29/2022, 10:34. FINDINGS: Lumbar Spine: Bone mineral density 0.986 g/cm2, T score -0.6. Left Femoral Neck: Bone mineral density 0.642 g/cm2, T score -1.9. Left Hip: Bone mineral density of 0.691 g/cm2, T score -2.1. Fracture Risk Calculation (when applicable): 10-year fracture risk of a major osteoporotic fracture 26 percent and of a hip fracture 14 percent. (T score greater or equal to -1.0 to: NORMAL) (T score from -1.1 to -2.4: OSTEOPENIA) (T score less than or equal to -2.5: OSTEOPOROSIS) IMPRESSION: Osteopenia---recommend repeat DEXA in 3-4 years for reassessment. Dictated by: Rai Guillen M.D. on 10/09/2024 at 14:46 Approved by: Rai Guillen M.D. on 10/09/2024 at 14:50
--- NOTE | 2024-10-08 14:40 | DI.MG.S_ITS ---
BILATERAL DIGITAL SCREENING MAMMOGRAM 3D/2D WITH CAD: 10/08/2024 CLINICAL: Routine screening. Comparison is made to exams dated: 10/04/2023 mammogram, 08/31/2022 mammogram, and 08/10/2021 mammogram - [facility]. There are scattered areas of fibroglandular density (category b / 25%-50% glandular tissue). Current study was also evaluated with a Computer Aided Detection (CAD) system. No significant masses, calcifications, or other findings are seen in either breast. There has been no significant interval change. IMPRESSION: NEGATIVE There is no mammographic evidence of malignancy. A 1 year screening mammogram is recommended. Based on the Tyrer Cuzick model (a risk assessment model) the patient's lifetime risk is 3.1% and her 10 year risk is 2.8%. According to the ACR, ACS, and NCCN guidelines, an annual breast MRI exam along with mammogram is recommended if the patient's lifetime risk is 20% or greater. This exam was interpreted at Station ID: [id number]. NOTE: For mammograms, a report in lay terms will be sent to the patient. Approximately 15% of breast malignancies will not be visualized mammographically. In the management of a palpable breast mass, a negative mammogram must not discourage biopsy of a clinically suspicious lesion. Electronically Signed By: Nelson mcclure/elis:10/09/2024 07:38:07 letter sent: Normal Exam ACR BI-RADS Category 1: Negative
== END ==
PROVIDERS: Family Provider Internal Medicine; PCP Family Medicine; Referring Provider Family Medicine; Visit Provider Family Medicine
DX: Z12.31 Encounter for screening mammogram for malignant neoplasm of breast (principal); M85.89 Other specified disorders of bone density and structure, multiple sites
CPT/HCPCS: 77063; 77067; 77080

== ENCOUNTER → 2024-11-26 10:30 | Outpatient (CLI) | payer MEDICARE, OTHER, SELFPAY ==
--- NOTE | 2024-11-26 10:46 | DI.RAD.S_ITS ---
PROCEDURE: XR LUMBAR SPINE 2-3V INDICATIONS: LOW BACK PAIN, RA TECHNIQUE: 3 views of the lumbar spine were acquired. COMPARISON: None. FINDINGS: Lumbar spine curvature and alignment: Mild levoscoliosis appreciated. There is grade 1 L3-4 spondylolisthesis due to degenerate facet disease. Bones: There are no osseous abnormalities. Disc spaces: Mild degenerative disc disease is seen at the T11-T12 through L4-5 levels. Minimal L5-S1 degenerative disc disease noted. Moderate L3-4 L4-5 L5-S1 degenerative facet disease also seen Soft tissues: No soft tissue swelling, calcification or mass. IMPRESSION: Degeneration Dictated by: Hany Montelongo M.D. on 11/26/2024 at 11:18 Approved by: Hany Montelongo M.D. on 11/26/2024 at 11:20
== END ==
PROVIDERS: Family Provider Internal Medicine; PCP Family Medicine; Referring Provider Internal Medicine Rheumatology; Visit Provider Internal Medicine Rheumatology
DX: M51.360 Other intervertebral disc degeneration, lumbar region with discogenic back pain only (principal); M51.34 Other intervertebral disc degeneration, thoracic region; M05.79 Rheumatoid arthritis with rheumatoid factor of multiple sites without organ or systems involvement; M47.816 Spondylosis without myelopathy or radiculopathy, lumbar region; M47.817 Spondylosis without myelopathy or radiculopathy, lumbosacral region; M43.16 Spondylolisthesis, lumbar region
CPT/HCPCS: 72100